=== PATIENT | male | born 1935 | race Caucasian/White ===

== ENCOUNTER 2017-08-29 08:14 | Inpatient (IN) ==
[2017-08-29] MEDS ORDERED: Acetaminophen IV 1,000 MG/100 ML INFUS..BTL IVPB ONE (08:57)
[2017-08-29] MEDS ORDERED: Famotidine 20 MG/2 ML VIAL IVP ONE (08:57)
[2017-08-29] MEDS ORDERED: Pregabalin 75 MG CAPSULE PO ONE (08:57)
[2017-08-29] MEDS ORDERED: Ringers Solution, Lactated 1,000 ML IVC SCH (09:00)
--- NOTE | 2017-08-29 09:02 | Anesthesia Evaluation PreOp ---
Date of Encounter: 08/29/17 Time of Encounter: 09:00 - Past History Planned Operation: Posterior Lumbar Fusion L3-5 Cardiac History: Denies any Significant Hx Pulmonary History: Denies Any Significant HX INSPECTOR CASING History: Denies Any Significant HX Other Medical History: Diabetes Type II, Thyroid, GERD Anesthesia History: No Prior Anesthetic Complications Alcohol Use: rarely Drug use: none Medications and Allergies Aspirin [Lo-Dose Aspirin EC] 81 mg PO DAILY 08/14/16 [History] Gabapentin [Neurontin] 600 mg PO BID 08/14/16 [History] Levothyroxine [Synthroid] 75 mcg PO 30 08/14/16 [History] Metformin HCl [Glucophage] 1,000 mg PO BID 08/14/16 [History] Naproxen [Naprosyn] 500 mg PO BID 08/14/16 [History] Nateglinide [Starlix] 60 mg PO BID 08/14/16 [History] Omeprazole [Omeprazole] 20 mg PO DAILY 08/14/16 [History] Oxycodone HCl/Acetaminophen [Percocet 5-325 mg Tablet] 1 each PO Q4-6H PRN #10 tablet 08/14/16 [Rx] Sertraline [Zoloft] 100 mg PO DAILY 08/14/16 [History] Tamsulosin HCl [Flomax] 0.4 mg PO DAILY 08/14/16 [History] glipiZIDE [Glipizide ER] 10 mg PO DAILY 08/14/16 [History] 3 Allergy/AdvReac Type Severity Reaction Status Date / Time No Known Allergies Allergy Verified 08/17/17 15:33 - Meds/Allergy Pre-op Review Medications Reviewed: Yes Allergies Reviewed: Yes Beta Blockers on Current Med List: No Anesthesia Results - Labs Laboratory Tests 08/17/17 08/17/17 15:43 15:43 Hgb 13.7 Hct 40.7 Plt Count 184 Sodium 136 Potassium 4.2 BUN 12 Creatinine 0.90 - Imaging EKG: report reviewed (SR) Additional studies: 7 Stress Test Negative, EF 60% Anesthesia Exam O2 Sat Height 1.73 m Height 1.73 m Weight 88.451 kg Weight 88.451 kg O2 Sat by Pulse Oximetry 96 Vital Signs Temp Pulse Resp BP Pulse Ox 98.5 F 87 18 127/79 96 08/29/17 08:51 08/29/17 08:51 08/29/17 08:51 08/29/17 08:51 08/29/17 08:51 Height: 5'8 Weight: 195 lbs NPO (# of Hours): MN Pain Scale: 0 - HEENT Pupil (Motor): Pupils equal, EOMI Mallampati: III Oral Opening: Less than or equal to 3 - INSPECTOR CASING LOC: Oriented INSPECTOR CASING Motor: Normal RUE, Normal LUE, Normal RLE, Normal LLE, Normal Face INSPECTOR CASING Sensory: Normal: RUE, LUE, RLE, LLE, Face - Cardiac Rhythm: Regular Murmur: None JVD: No Carotid Bruit: No - Pulmonary Breath Sounds: bilateral Clear Respiratory Effort: Symmetrical Anesthesia Assess/Plan ASA Score: 2 (DM GERD) Modified [place] Scale for Level of Consciousness: Cooperative, oriented, and tranquil Anesthetic Plan: General Monitoring Plan: Standard Monitors Recovery Plan: PACU (Discussed GA, agrees to proceed)
[2017-08-29] MEDS ORDERED: *HR* Propofol 200 MG/20 ML VIAL IVP ONE (09:29)
[2017-08-29] MEDS ORDERED: *HR* Succinylcholine 200 MG/10 ML VIAL IVP ONE (09:29)
[2017-08-29] MEDS ORDERED: *HR* FentaNYL (PF) 100 MCG/2 ML VIAL ONE (09:29)
[2017-08-29] MEDS ORDERED: Ondansetron 4 MG/2 ML VIAL ONE (09:29)
[2017-08-29] MEDS ORDERED: Lidocaine -MPF 2% 2 ML VIAL ONE (09:29)
[2017-08-29] MEDS ORDERED: Bacitracin 50,000 UNIT, Polymyxin B Sulfate 500,000 UNIT, Sodium Chloride IRRigation 1,... IR ONE (09:50)
--- NOTE | 2017-08-29 10:10 | History & Physical Report ---
Date of Encounter: 08/29/17 Time of Encounter: 10:10 24 Hour HP Update - Instructions Instructions: If the History and Physical is less than 30 days old and was completed prior to A.M. admission and or procedure and has NOT been updated on calendar day of procedure please complete this update prior to performing procedure. - Update Patient reports changes in Medical Condition: No Changes in examination, assessment, or condition: No Changes in Medication: No Preop tests/diagnostics Reviewed: Yes Pre-Op MRSA Screen: Negative Surgery Remains Indicated: Yes Consent for Planned Operative Procedure(s) Verified: Yes - Pre-Operative Checklist Preoperative Checklist Indicated: No Prophylactic Antibiotic Ordered: Yes Home Medications Include Beta Juan: No Beta Juan Taken Today (Day of Surgery): No Beta Juan Taken Yesterday (Day Prior to Surgery): No Is VTE Prophylaxis Indicated?: Yes
[2017-08-29] MEDS ORDERED: *HR* Morphine 10 MG/ML VIAL ONE (10:22)
[2017-08-29] MEDS ORDERED: Dexamethasone 4 MG/ML VIAL ONE (10:53)
[2017-08-29] MEDS ORDERED: *HR* PHENYLEPHRINE 1,000 MCG/10 ML SYRINGE IVP ONE ×2 (10:57→11:51)
[2017-08-29] MEDS ORDERED: EPHEDrine 50 MG/ML VIAL ONE (11:34)
[2017-08-29] MEDS ORDERED: *HR* Rocuronium Bromide 50 MG/5 ML VIAL ONE (11:41)
[2017-08-29] MEDS ORDERED: *HR* Promethazine 25 MG/ML VIAL IVP PRN (12:16)
[2017-08-29] MEDS ORDERED: *HR* Labetalol 20 MG/4 ML SYRINGE IVP PRN (12:16)
[2017-08-29] MEDS ORDERED: Neostigmine Methylsulfate 3 MG/3 ML SYRINGE ONE (13:11)
[2017-08-29] MEDS ORDERED: Esmolol 100 MG/10 ML VIAL IVP ONE (13:38)
--- NOTE | 2017-08-29 13:58 | Orthopedic Operative Note ---
Date of procedure: 08/29/17 Pre-op diagnosis: Spondylolisthesis, lumbar stenosis, lumbar radiculopathy Post-op diagnosis: same Operation/Findings: Posterior lumbar interbody fusion L3-L5: The patient successfully underwent general endotracheal anesthesia. The patient was given antibiotics prior to the start of the procedure. Compression boots and stockings were used for deep vein thrombosis prophylaxis. A Bass catheter was placed. Leads for neuro monitoring were placed on the upper and lower extremities. This included the cranium. The neuro monitoring personnel confirmed there were satisfactory readings prior to the start of the procedure. The patient was turned prone on the Efren table. The back was prepped and draped in the usual sterile fashion. An incision was was marked and centered over the involved L3-L5 levels in the mid line. The incision was deepened through the lumbar fascia. Bovie cautery and Roberts elevators were used to reflect the paraspinal musculature at the lateral extent of the transverse processes of the involved L3 , L4, and L5 levels. Melida clamps were placed over the L4 and L5 spinous processes. An intraoperative lateral fluoroscopy graft was obtained. A conversation was held between the surgeon and radiologist and both confirmed we had the correct operative levels. We then placed pedicle screws in standard fashion with the aid of fluoroscopy and anatomic landmarks. Briefly a starter awl was used. A gearshift was subsequently used to enter the highway patrol pilot hole via a transpedicular route into the vertebral body. The highway patrol pilot hole was tapped with an undersized instrument, and subsequently six 6.5 x 40 mm pedicle screws were placed bilaterally at the indicated L3, L4, and L5 levels. The screws were tested with the aid of the neurologic monitoring staff via pedicle screw stimulation. All reading suggested there was no significant cortical wall breech. The screws were also evaluated fluoro- graphically and appeared to be in satisfactory position. We then turned our attention to the decompression portion of the procedure. We removed the supraspinous and interspinous ligaments and subsequently the insertion of the ligamentum flavum on the undersurface of the L4 proximal lamina was dislodged with a curette. We then removed the ligamentum flavum as well as undercut the L4-L5 facets at this L4- L5 level to decompress the lateral recesses. We also performed a L4 laminectomy. After the decompression which was over and above that which was required to place the interbody graft, the foramen and traversing roots at this level were found to be free and patent. We moved proximally to the L3-4 level and again performed a decompression which included removal of the ligamentum flavum, undercutting the L3-4 facets, and performing an L3 laminectomy. We also took part of the medial facets at L3-4 and L4-5 in order to aid in the decompression. We then protected the neural elements including the thecal sac and traversing nerve root on the right at L3-4 with a dural retractor. We made an annulotomy into the L3-L4 disc space and then removed entire disc material using Pituitary instruments. We trialed various size grafts after the endplates were prepared for graft insertion. A 10 x 26 enter body graft fit well within the L3-L4 disc space. We obtained some bone from the right posterior superior iliac spine through us a separate incision and combined with this with the bone which we had saved from the laminectomy of L3 and L4 portion of the procedure. This autograft bone was first placed in the anterior portion of the L3-L4 disc space and additional bone was placed within the interbody graft spacer. We then placed the interbody graft spacer obliquely across the L3 -L4 disc space towards the midline while protecting the neural elements with a root retractor. When the graft was found to be in satisfactory position the lens inserter was removed. We then copiously irrigated the wound. We then decorticated the L3, L4, and L5 transverse processes as well as the L3-4 and L4- 5 facet joints of the involved L3, L4, and L5 levels to aid in the posterolateral fusion. We placed autograft bone in the lateral gutters over these regions. We then placed rods within the screw heads of the involved L3, L4, and L5 levels and first locked the distal screws and then subsequently locked the proximal screws so as to improve and reduce the spondylolisthesis previously seen. We then closed the wound in layers with 1 Vicryl for the fascia, 2-0 Vicryl. Subcutaneous tissue, and Dermabond was used for skin closure. Sterile dressings were placed over the wound. The patient was turned supine on a hospital bed and extubated. All sponge instruments and needle counts were correct at the end of the procedure. The patient tolerated the procedure well without complications. Anesthesia: GETA Surgeon: Candelario Alvarado Jr Was there an assistant sales manager present: No Estimated blood loss (cc): 150 Specimen: None Condition: stable Disposition: PACU
[2017-08-29] MEDS: *HR* Morphine 2 MG/ML SYRINGE IVP PRN ×2 (14:21→14:49)
--- NOTE | 2017-08-29 15:23 | Anesthesia Evaluation Post Op ---
Date of Encounter: 08/29/17 Time of Encounter: 15:30 - Vital Signs Vital Signs: Vital Signs/O2 Sat/Glucose, Most Current Temp Pulse Resp BP Pulse Ox 08/29/17 15:18 97.2 F L 90 20 134/86 98 08/29/17 15:08 97.2 F L 90 20 138/83 98 08/29/17 14:58 90 20 144/82 98 08/29/17 14:48 90 20 139/85 96 08/29/17 14:38 97.2 F L 94 20 145/88 98 08/29/17 14:28 94 20 137/90 97 08/29/17 14:18 92 20 136/90 100 08/29/17 14:08 97.4 F L 90 20 136/74 100 - Lungs Lungs: Clear Ascult./Percussion - Airway Airway: Non-obstructed - Cardiovascular Regular Rate - Mental Status Mental Status: Alert & Oriented, Answers Appropriately - Pain Pain Scale: 2 - Nausea Vomiting Nausea Vomiting: Not Present - Hydration Hydration: NPO - Discharge PostOp Status: Transfer Patient to floor
[2017-08-29] MEDS ORDERED: Naloxone 0.4 MG/ML INJ IVP PRN (15:35)
[2017-08-29] MEDS: *HR* OxyCODONE Immed Rel 5 MG TABLET PO PRN (16:34)
[2017-08-29] MEDS ORDERED: D5% in Water 1,000 ML IVC PRN ×2 (16:38→17:02)
[2017-08-29] MEDS ORDERED: Dextrose Gel 15 GM/37.5 ML TUBE PO PRN ×4 (16:38→17:02)
[2017-08-29] MEDS ORDERED: *HR* Dextrose 50 % in Water (Syg) 50 ML SYRINGE IVP PRN ×2 (16:38→17:02)
[2017-08-29] MEDS: *HR* Metformin 500 MG TABLET PO SCH (18:04)
[2017-08-29] MEDS: CeFAZolin Pre 2,000 MG/100 ML 2,000 MG/100 ML BAG IVPB SCH (18:04)
[2017-08-29] MEDS: Insulin LISPRO 300 UNITS/3 ML VIAL SQ SCH ×2 (18:05→20:24)
[2017-08-29] MEDS: *HR* Nateglinide 120 MG TABLET PO SCH (19:49)
[2017-08-29] MEDS: Ringers Solution, Lactated 1,000 ML IVC SCH (20:28)
[2017-08-29] MEDS: *HR* HYDROcodone/Acet 5/325 mg TABLET PO PRN (20:30)
[2017-08-30] MEDS: *HR* OxyCODONE Immed Rel 5 MG TABLET PO PRN ×4 (00:25→21:01)
[2017-08-30] MEDS: CeFAZolin Pre 2,000 MG/100 ML 2,000 MG/100 ML BAG IVPB SCH (00:26)
[2017-08-30] MEDS: Ondansetron 4 MG/2 ML VIAL IVP PRN ×2 (00:30→05:18)
[2017-08-30 02:19] LABS: BUN/Creatinine Ratio 12 (6-26); Blood Urea Nitrogen 12 mg/dL (8-23); Calcium 9.1 mg/dL (8.6-10.3); Carbon Dioxide 26 mEq/L (23-29); Chloride 104 mEq/L (98-107); Glucose 230 mg/dL (70-105); Osmolality,Calculated 297 (280-300); Sodium 140 mEq/L (136-145); eGFR For African Americans > 60 (> 60); eGFR For Non-African Americans > 60 (> 60)
[2017-08-30 02:27] LABS: Basophils % 0.1 %; Hemoglobin 12.9 g/dL (12.9-16.9); Immature Granulocytes % 0.4 % (0-4); Lymphocytes # 0.7 K/mcL (0.6-4.6); Mean Corpuscular HGB Conc 33.1 g/dL (31.6-35.5); Mean Corpuscular Hemoglobin 30.2 pg (28.0-33.3); Mean Corpuscular Volume 91.3 fL (83.0-100.0); Mean Platelet Volume 10.3 fL (9.4-12.4); Monocytes # 0.7 K/mcL (0.0-1.3); Neutrophils # 10.8 K/mcL (1.6-8.9); Platelet Count 211 K/mcL (140-400); Red Blood Count 4.27 M/mcL (4.19-5.50); Red Cell Distribution Width 13.9 % (11.5-14.5); Segmented Neutrophils % 87.5 %
[2017-08-30] MEDS: Ringers Solution, Lactated 1,000 ML IVC SCH (05:19)
[2017-08-30] MEDS: Insulin LISPRO 300 UNITS/3 ML VIAL SQ SCH ×4 (07:43→21:00)
[2017-08-30] MEDS: *HR* Promethazine 25 MG/ML VIAL IVP PRN (07:44)
[2017-08-30] MEDS: *HR* HYDROcodone/Acet 5/325 mg TABLET PO PRN (07:44)
[2017-08-30] MEDS: *HR* Nateglinide 120 MG TABLET PO SCH ×2 (08:01→16:31)
[2017-08-30] MEDS: Aspirin Enteric Coated 81 MG Tablet PO SCH (08:01)
[2017-08-30] MEDS: *HR* Metformin 500 MG TABLET PO SCH ×2 (08:01→16:31)
[2017-08-30] MEDS: *HR* GlipiZIDE XL (24 HR) 10 MG TABLET PO SCH (08:01)
--- NOTE | 2017-08-30 08:29 | Orthopedics Progress Note ---
Date of Encounter: 08/30/17 Time of Encounter: 08:27 - Assessment and Plan (1) Status post lumbar spinal fusion Current Visit: Yes Status: Acute (2) Lumbar stenosis Current Visit: Yes Status: Chronic Qualifiers: Neurogenic claudication status: unspecified Qualified Code(s): M48.061 - Spinal stenosis, lumbar region without neurogenic claudication (3) Lumbar radiculopathy Current Visit: Yes Status: Chronic (4) Spondylolisthesis Current Visit: Yes Status: Chronic Qualifiers: Spinal region: lumbar Qualified Code(s): M43.16 - Spondylolisthesis, lumbar region Subjective Principal diagnosis: Spondylolisthesis, lumbar stenosis, lumbar radiculopathy Interval history: POD#1 Posterior lumbar interbody fusion L3-L5 on 08/29/[address] Alvarado for Spondylolisthesis, lumbar stenosis, lumbar radiculopathy The patient is without complaints. Afebrile vital signs are stable. Incision is clean and intact, dressing saturated with serosanguinous drainage. Palpation around incision reveals no induration or drainage. Neurovascularly intact with regard to bilateral lower extremities. Fires all upper and lower extremity motor groups. Assessment: Stable postoperative. Plan: Reviewed postoperative restrictions and precautions. Patient verbalized understanding. Brace present and patient aware to apply with activity. Mobilize with therapy Continue analgesics as needed Discharge planning - awaiting therapy recommendations - likely ECF Radiographs pending Objective Vital signs: Vital Signs Temp Pulse Resp BP Pulse Ox 08/30/17 08:11 98 08/30/17 06:41 99.2 F 104 20 167/90 98 08/30/17 03:16 99.6 F 100 18 149/88 98 08/29/17 22:38 98.2 F 98 18 125/78 97 08/29/17 19:14 98.0 F 101 16 132/75 99 08/29/17 18:02 98.2 F 102 98 129/79 98 08/29/17 16:40 98.6 F 66 16 100/69 92 08/29/17 16:10 97.8 F 98 15 133/83 95 08/29/17 15:55 99 08/29/17 15:40 98.1 F 91 16 137/86 99 08/29/17 15:18 97.2 F L 90 20 134/86 98 08/29/17 15:08 97.2 F L 90 20 138/83 98 08/29/17 14:58 90 20 144/82 98 08/29/17 14:48 90 20 139/85 96 08/29/17 14:38 97.2 F L 94 20 145/88 98 08/29/17 14:28 94 20 137/90 97 08/29/17 14:18 92 20 136/90 100 08/29/17 14:08 97.4 F L 90 20 136/74 100 08/29/17 08:58 98.5 F 87 18 127/79 96 08/29/17 08:51 98.5 F 87 18 127/79 96 Intake and Output 08/29/17 08/30/17 08/30/17 23:59 07:59 15:59 Intake Total 500 / 500 1195 / 1195 Output Total 2350 / 2350 650 / 650 200 / 200 Balance -1850 / -1850 545 / 545 -200 / -200 Intake: IV Fluids 200 / 200 845 / 845 Lactated Ringers 1,000 ML @ 100 845 / 845 mls/hr IVC .Q10H [facility] Rx#: [id number] Ofirmev 1,000 mg/100 ml 1,000 100 / 100 mg In 100 ml @ 400 mls/hr IVPB ONCE ONE Rx#:[id number] Ancef Premix 2,000 MG/100 ML 2, 100 / 100 000 mg In 100 ml @ 200 mls/hr IVPB Q8HR [facility] Rx#:[id number] Oral 300 / 300 350 / 350 Output: Emesis 200 / 200 Catheter 2350 / 2350 650 / 650 Other: Blood Glucose* 240 256 - Labs CBC & BMP: 08/30/17 01:23 08/30/17 01:23 Labs: Abnormal lab results WBC 12.3 K/mcL (4.3-11.1) H 08/30/17 01:23 Neutrophils # 10.8 K/mcL (1.6-8.9) H 08/30/17 01:23 Glucose 230 mg/dL (70-105) H 08/30/17 01:23 POC Glucose 240 mg/dL (70-99) H 08/29/17 19:42 - VTE Documentation of Mechanical Device: Graduated compression elastic hosiery Consult Discharge Plan - Plan Referrals: Trini Roy MD [Primary Care Provider] -
[2017-08-30] MEDS ORDERED: Simethicone 80 MG TAB.CHEW PO PRN (09:18)
[2017-08-31] MEDS: Acetaminophen 325 MG TABLET PO PRN ×2 (05:27→23:48)
[2017-08-31] MEDS: *HR* Metformin 500 MG TABLET PO SCH ×2 (09:26→17:27)
[2017-08-31] MEDS: *HR* OxyCODONE Immed Rel 5 MG TABLET PO PRN ×2 (09:27→17:27)
[2017-08-31] MEDS: *HR* Nateglinide 120 MG TABLET PO SCH ×2 (09:27→17:27)
[2017-08-31] MEDS: *HR* GlipiZIDE XL (24 HR) 10 MG TABLET PO SCH (09:27)
[2017-08-31] MEDS: Aspirin Enteric Coated 81 MG Tablet PO SCH (09:27)
[2017-08-31] MEDS: Insulin LISPRO 300 UNITS/3 ML VIAL SQ SCH ×4 (09:34→21:08)
--- NOTE | 2017-08-31 17:49 | Orthopedics Progress Note ---
Date of Encounter: 08/31/17 Time of Encounter: 07:50 - Assessment and Plan (1) Status post lumbar spinal fusion Current Visit: Yes Status: Acute (2) Lumbar stenosis Current Visit: Yes Status: Chronic Qualifiers: Neurogenic claudication status: unspecified Qualified Code(s): M48.061 - Spinal stenosis, lumbar region without neurogenic claudication (3) Lumbar radiculopathy Current Visit: Yes Status: Chronic (4) Spondylolisthesis Current Visit: Yes Status: Chronic Qualifiers: Spinal region: lumbar Qualified Code(s): M43.16 - Spondylolisthesis, lumbar region Subjective Principal diagnosis: Spondylolisthesis, lumbar stenosis, lumbar radiculopathy Interval history: POD#1 Posterior lumbar interbody fusion L3-L5 on 08/29/[address] Alvarado for Spondylolisthesis, lumbar stenosis, lumbar radiculopathy The patient is without complaints. Afebrile vital signs are stable. Incision is clean and intact, dressing saturated with serosanguinous drainage. Palpation around incision reveals no induration or drainage. Neurovascularly intact with regard to bilateral lower extremities. Fires all upper and lower extremity motor groups. Assessment: Stable postoperative. Plan: Reviewed postoperative restrictions and precautions. Patient verbalized understanding. Brace present and patient aware to apply with activity. Mobilize with therapy Continue analgesics as needed Discharge planning - ECF - D/c to [place] on 09/01 Radiographs pending Objective Vital signs: Vital Signs Temp Pulse Resp BP Pulse Ox 08/31/17 16:09 98.9 F 110 20 148/75 97 08/31/17 11:49 99.0 F 100 18 107/63 95 08/31/17 08:13 99.8 F H 98 18 110/68 95 08/31/17 04:36 98.9 F 86 16 145/72 94 08/31/17 00:29 99.3 F 120 18 100/67 93 08/30/17 19:21 99.9 F H 110 18 104/67 96 Intake and Output 08/31/17 08/31/17 08/31/17 07:59 15:59 23:59 Intake Total 240 / 240 Output Total 100 / 100 200 / 200 50 / 50 Balance -100 / -100 40 / 40 -50 / -50 Intake: Oral 240 / 240 Output: Urine 100 / 100 100 / 100 50 / 50 Catheter 100 / 100 Other: Meal Lunch Percent of Meal Consumed 80% Stool Size Smear Stool Color Brown # Urine Diapers 1 # Bowel Movements 1 Blood Glucose* 181 243 - Labs CBC & BMP: 08/30/17 01:23 08/30/17 01:23 Labs: Abnormal lab results WBC 12.3 K/mcL (4.3-11.1) H 08/30/17 01:23 Neutrophils # 10.8 K/mcL (1.6-8.9) H 08/30/17 01:23 Glucose 230 mg/dL (70-105) H 08/30/17 01:23 POC Glucose 215 mg/dL (70-99) H 08/31/17 07:47 - VTE Documentation of Mechanical Device: Intermittent pneumatic compression device Consult Discharge Plan - Plan Referrals: Trini Roy MD [Primary Care Provider] -
[2017-08-31] MEDS: *HR* HYDROcodone/Acet 5/325 mg TABLET PO PRN (19:06)
[2017-08-31 22:03] LABS: Basophils % 0.1 %; Hematocrit 34.1 % (37.5-50.1); Hemoglobin 11.8 g/dL (12.9-16.9); Immature Granulocytes % 0.7 % (0-4); Lymphocytes # 1.2 K/mcL (0.6-4.6); Lymphocytes % 7.9 %; Mean Corpuscular HGB Conc 34.6 g/dL (31.6-35.5); Mean Corpuscular Hemoglobin 31.6 pg (28.0-33.3); Mean Corpuscular Volume 91.4 fL (83.0-100.0); Mean Platelet Volume 10.1 fL (9.4-12.4); Monocytes # 1.1 K/mcL (0.0-1.3); Monocytes % 7.9 %; Neutrophils # 12.1 K/mcL (1.6-8.9); Platelet Count 192 K/mcL (140-400); Red Blood Count 3.73 M/mcL (4.19-5.50); Red Cell Distribution Width 13.9 % (11.5-14.5); Segmented Neutrophils % 83.4 %
[2017-08-31 22:24] LABS: BUN/Creatinine Ratio 20 (6-26); Blood Urea Nitrogen 22 mg/dL (8-23); Calcium 8.8 mg/dL (8.6-10.3); Carbon Dioxide 20 mEq/L (23-29); Chloride 100 mEq/L (98-107); Glucose 197 mg/dL (70-105); Osmolality,Calculated 283 (280-300); Potassium 3.7 mEq/L (3.5-5.1); Sodium 132 mEq/L (136-145); eGFR For African Americans > 60 (> 60); eGFR For Non-African Americans > 60 (> 60)
[2017-08-31 23:12] LABS: Bilirubin,Urine Negative (Negative); Blood,Urine Negative (Negative); Clarity,Urine Clear (Clear); Color,Urine Dark Yellow (Yellow); Glucose,Urine (UA) >=1000 mg/dL (Normal); Ketones,Urine 15 mg/dL (Negative); Leukocyte Esterase,Urine Negative (Negative); Nitrite,Urine Negative (Negative); PH,Urine 5.5 pH Units (5.0-8.0); Protein,Urine 30 mg/dL (Neg-Trace); Specific Gravity,Urine 1.029 (1.010-1.025); Urobilinogen,Urine Normal (Normal)
[2017-08-31 23:16] LABS: Bacteria,Urine None Seen per hpf (None-Few); Hyaline Casts,Urine None Seen per lpf (None-Few); Squamous Epithelial Cell,Urine Moderate per lpf (None-Few); WBC,Urine 0-3 per hpf (0-3)
[2017-09-01] MEDS: diazePAM 5 MG TABLET PO PRN ×2 (00:10→16:25)
[2017-09-01] MEDS: *HR* OxyCODONE Immed Rel 5 MG TABLET PO PRN ×3 (01:15→22:11)
[2017-09-01] MEDS: Ringers Solution, Lactated 1,000 ML IVC SCH (05:38)
[2017-09-01] MEDS: Insulin LISPRO 300 UNITS/3 ML VIAL SQ SCH ×4 (07:40→20:26)
[2017-09-01] MEDS: Aspirin Enteric Coated 81 MG Tablet PO SCH (07:41)
[2017-09-01] MEDS: *HR* Metformin 500 MG TABLET PO SCH ×2 (07:41→16:26)
[2017-09-01] MEDS: *HR* Nateglinide 120 MG TABLET PO SCH ×2 (07:41→16:26)
[2017-09-01] MEDS: *HR* GlipiZIDE XL (24 HR) 10 MG TABLET PO SCH (07:41)
[2017-09-01] MEDS: Ondansetron 4 MG/2 ML VIAL IVP PRN (07:50)
--- NOTE | 2017-09-01 08:36 | Discharge Summary ---
Orders not resulted at time of discharge: Pending orders 08/30/17 08:06 Occult Blood, Gastric [BF] Stat 08/31/17 23:37 Culture,Blood [BC] Stat 09/01/17 08:00 XR lumbar spine 2-3V [XR] Routine Date of Encounter: 09/01/17 - Discharge Diagnosis (1) Status post lumbar spinal fusion Status: Acute (2) Lumbar stenosis Status: Chronic Qualifiers: Neurogenic claudication status: unspecified Qualified Code(s): M48.061 - Spinal stenosis, lumbar region without neurogenic claudication (3) Lumbar radiculopathy Status: Chronic (4) Spondylolisthesis Status: Chronic Qualifiers: Spinal region: lumbar Qualified Code(s): M43.16 - Spondylolisthesis, lumbar region - Hospital Course Hospital course: Mr. Cr is a 82 year old male - Time Spent with Patient Total time spent providing and/or coordinating discharge services: - Discharge Medications Prescriptions: OxyCODONE Immed Rel [Roxicodone 5 MG] 5 mg PO Q6HR PRN 7 Days #28 tablet PRN Reason: Severe Pain Home Medications: Aspirin [Lo-Dose Aspirin EC] 81 mg PO DAILY 08/14/16 [History] Levothyroxine [Synthroid] 75 mcg PO 0630 08/14/16 [History] Metformin HCl [Glucophage] 1,000 mg PO BID 08/14/16 [History] Naproxen [Naprosyn] 500 mg PO BID 08/14/16 [History] Nateglinide [Starlix] 60 mg PO BID 08/14/16 [History] Omeprazole 20 mg PO DAILY 08/14/16 [History] glipiZIDE [Glipizide ER] 10 mg PO DAILY 08/14/16 [History] Acetaminophen [Tylenol] 650 mg PO Q6HR PRN tablet 09/01/17 [Rx] OxyCODONE Immed Rel [Roxicodone 5 MG] 5 mg PO Q6HR PRN 7 Days #28 tablet [Rx] Simethicone [Gas-X] 80 mg PO TID PRN tab.chew 09/01/17 [Rx] Allergies/Adverse Reactions: 3 Allergy/AdvReac Type Severity Reaction Status Date / Time No Known Allergies Allergy Verified 08/29/17 09:54 Date of admission: 08/29/17 15:35 Primary care physician: Trini Roy Consults: 08/29/17 15:35 Consult to Occupational Therapy [CONS] Routine Comment: Evaluate, develop and implement POC Reason for Consult: Postoperative rehabilitation Does patient have active BEDREST order?: No Is patient medically & hemodynamically stable?: Yes Patient assessed for mobility or mobilized this visit?: No Consult to Physical Therapy [CONS] Routine Comment: Evaluate, develop and implement POC Reason for Consult: Postoperative rehabilitation Does patient have active BEDREST order?: No Is patient medically & hemodynamically stable?: Yes Patient assessed for mobility or mobilized this visit?: No Consult to Adoption Services Manager [CONS] Routine Reason for SW Consult: Postoperative rehabilitation Consult to Spine Navigator [CONS] [CONS] Routine 08/29/17 16:19 Consult to Nutrition [CONS] Routine Comment: Consulting Provider: NUTRITION Reason for Dietary Consult: MST Score Consult to Pastoral Services [CONS] Routine Comment: - VTE Documentation of Mechanical Device: Intermittent pneumatic compression device Labs on day of discharge: Labs from last 24 hours 09/01/17 09/01/17 08/31/17 04:47 00:45 22:40 WBC RBC Hgb Hct MCV MCH MCHC RDW Plt Count MPV Immature Gran % Seg Neutrophils % Lymphocytes % Monocytes % Eosinophils % Basophils % Neutrophils # Lymphocytes # Monocytes # Eosinophils # Basophils # Sodium Potassium Chloride Carbon Dioxide BUN Creatinine Est GFR ( Amer) Est GFR (Non-Af Amer) BUN/Creatinine Ratio Glucose POC Glucose Calculated Osmolality Lactic Acid 1.8 2.6 H Calcium Urine Color Dark Yellow Urine Clarity Clear Urine pH 5.5 Ur Specific Royal 1.029 H Urine Protein 30 H Urine Glucose (UA) >=1000 H Urine Ketones 15 H Urine Blood Negative Urine Nitrite Negative Urine Bilirubin Negative Urine Urobilinogen Normal Ur Leukocyte Esterase Negative Urine Microscopic RBC 5-15 H Urine Microscopic WBC 0-3 Ur Squamous Epith Cells Moderate H Urine Bacteria None Seen Hyaline Casts None Seen Ur Culture Indicated? NO 08/31/17 08/31/17 08/31/17 21:48 21:48 07:47 WBC 14.5 H RBC 3.73 L Hgb 11.8 L Hct 34.1 L MCV 91.4 MCH 31.6 MCHC 34.6 RDW 13.9 Plt Count 192 MPV 10.1 Immature Gran % 0.7 Seg Neutrophils % 83.4 Lymphocytes % 7.9 Monocytes % 7.9 Eosinophils % 0.0 Basophils % 0.1 Neutrophils # 12.1 H Lymphocytes # 1.2 Monocytes # 1.1 Eosinophils # 0.0 Basophils # 0.0 Sodium 132 L Potassium 3.7 Chloride 100 Carbon Dioxide 20 L BUN 22 Creatinine 1.12 Est GFR ( Amer) > 60 Est GFR (Non-Af Amer) > 60 BUN/Creatinine Ratio 20 Glucose 197 H POC Glucose 215 H Calculated Osmolality 283 Lactic Acid Calcium 8.8 Urine Color Urine Clarity Urine pH Ur Specific Royal Urine Protein Urine Glucose (UA) Urine Ketones Urine Blood Urine Nitrite Urine Bilirubin Urine Urobilinogen Ur Leukocyte Esterase Urine Microscopic RBC Urine Microscopic WBC Ur Squamous Epith Cells Urine Bacteria Hyaline Casts Ur Culture Indicated? - Impressions ITS Impressions Lumbar Spine X-Ray 08/29/17 00:00 IMPRESSION: Intraprocedural fluoroscopic spot images as above. See separate procedure report for more information. D/ / 08/29/2017 15:46:07 Ramsey Ramos MD / maya Interpreting Provider: Ramsey Ramos MD Fluoroscopy 08/29/17 11:22 IMPRESSION: Intraprocedural fluoroscopic spot images as above. See separate procedure report for more information. D/ / 08/29/2017 15:46:07 Ramsey Ramos MD / maya Interpreting Provider: Ramsey Ramos MD Chest X-Ray 08/31/17 23:36 IMPRESSION: 1. Minimal bibasilar opacities suggestive of partial atelectasis. Mild pneumonia may be considered in the differential diagnosis. D/ / 09/01/2017 05:37:16 Wagner Harrell MD / yer Interpreting Provider: Wagner Harrell MD - Discharge Instructions Follow Up With: Trini Roy MD [Primary Care Provider] -
--- NOTE | 2017-09-01 08:38 | Orthopedics Progress Note ---
Date of Encounter: 09/01/17 Time of Encounter: 08:20 - Assessment and Plan (1) Status post lumbar spinal fusion Current Visit: Yes Status: Acute (2) Lumbar stenosis Current Visit: Yes Status: Chronic Qualifiers: Qualified Code(s): M48.061 - Spinal stenosis, lumbar region without neurogenic claudication (3) Lumbar radiculopathy Current Visit: Yes Status: Chronic (4) Spondylolisthesis Current Visit: Yes Status: Chronic Qualifiers: Qualified Code(s): M43.16 - Spondylolisthesis, lumbar region Subjective Principal diagnosis: Spondylolisthesis, lumbar stenosis, lumbar radiculopathy Interval history: POD#3 Posterior lumbar interbody fusion L3-L5 on 08/29/[address] Alvarado for Spondylolisthesis, lumbar stenosis, lumbar radiculopathy The patient is without complaints. Afebrile - Patient's heart rate trending upward. Concern for developing medical complication Patient very somnolent and noted to be somewhat disoriented this morning - patient noted to be drifting off while being spoken to and pitching forward in chair. Requested patient be transferred back into bed to ensure safety. Lumbar support brace in place. Neurovascularly intact with regard to bilateral lower extremities. Fires all upper and lower extremity motor groups. Assessment: Status post lumbar fusion Sudden onset confusion Hypersomnolence Plan: Brace present and patient aware to apply with activity. Mobilize with therapy Continue analgesics as needed - will decrease frequency secondary to somnolence and confusion Discharge planning - ECF - D/c to [facility] on 09/01 - hold discharge until lab and imaging resulted secondary to concern regarding confusion Radiographs pending Later entry with update This provider was notified by nursing staff that patient continues to trend toward persistent tachycardic and questionable for worsening status. Hospitalist team consulted for further evaluation. Dr. Alvarado notified and states agreement with plan. Objective Vital signs: Vital Signs Temp Pulse Resp BP Pulse Ox 09/01/17 07:20 98.4 F 121 16 109/67 95 09/01/17 04:22 98.6 F 107 18 102/68 95 09/01/17 00:47 98.3 F 100 18 112/56 92 08/31/17 23:14 101.7 F H 121 22 123/62 93 08/31/17 21:40 93 08/31/17 20:39 98.8 F 81 18 112/54 91 08/31/17 16:09 98.9 F 110 20 148/75 97 08/31/17 11:49 99.0 F 100 18 107/63 95 Intake and Output 08/31/17 09/01/17 09/01/17 23:59 07:59 15:59 Intake Total 350 / 350 100 / 100 Output Total 50 / 50 600 / 600 Balance 300 / 300 -500 / -500 Intake: Oral 350 / 350 100 / 100 Output: Urine 50 / 50 600 / 600 Other: Stool Size Smear Stool Color Brown # Voids 1 2 # Bowel Movements 1 Blood Glucose* 185 174 - Labs CBC & BMP: 09/01/17 14:26 09/01/17 14:26 Labs: Abnormal lab results WBC 14.5 K/mcL (4.3-11.1) H 08/31/17 21:48 RBC 3.73 M/mcL (4.19-5.50) L 08/31/17 21:48 Hgb 11.8 g/dL (12.9-16.9) L 08/31/17 21:48 Hct 34.1 % (37.5-50.1) L 08/31/17 21:48 Neutrophils # 12.1 K/mcL (1.6-8.9) H 08/31/17 21:48 Sodium 132 mEq/L (136-145) L 08/31/17 21:48 Carbon Dioxide 20 mEq/L (23-29) L 08/31/17 21:48 Glucose 197 mg/dL (70-105) H 08/31/17 21:48 POC Glucose 215 mg/dL (70-99) H 08/31/17 07:47 Ur Specific [place] 1.029 (1.010-1.025) H 08/31/17 22:40 Urine Protein 30 mg/dL (Neg-Trace) H 08/31/17 22:40 Urine Glucose (UA) >=1000 mg/dL (Normal) H 08/31/17 22:40 Urine Ketones 15 mg/dL (Negative) H 08/31/17 22:40 Urine Microscopic RBC 5-15 per hpf (0-3) H 08/31/17 22:40 Ur Squamous Epith Cells Moderate per lpf (None-Few) H 08/31/17 22:40 - VTE Documentation of Mechanical Device: Intermittent pneumatic compression device Consult Discharge Plan - Plan Referrals: Trini Roy MD [Primary Care Provider] - Prescriptions: OxyCODONE Immed Rel [Roxicodone 5 MG] 5 mg PO Q6HR PRN 7 Days #28 tablet PRN Reason: Severe Pain
[2017-09-01] MEDS: *HR* HYDROcodone/Acet 5/325 mg TABLET PO PRN (12:03)
[2017-09-01 14:42] LABS: Basophils % 0.2 %; Eosinophils # 0.1 K/mcL (0.0-0.6); Eosinophils % 0.6 %; Hemoglobin 11.2 g/dL (12.9-16.9); Immature Granulocytes % 0.6 % (0-4); Lymphocytes # 1.4 K/mcL (0.6-4.6); Lymphocytes % 11.2 %; Mean Corpuscular HGB Conc 32.9 g/dL (31.6-35.5); Mean Corpuscular Hemoglobin 30.2 pg (28.0-33.3); Mean Corpuscular Volume 91.6 fL (83.0-100.0); Mean Platelet Volume 10.3 fL (9.4-12.4); Monocytes # 0.8 K/mcL (0.0-1.3); Monocytes % 6.7 %; Neutrophils # 9.8 K/mcL (1.6-8.9); Platelet Count 183 K/mcL (140-400); Red Blood Count 3.71 M/mcL (4.19-5.50); Red Cell Distribution Width 14.1 % (11.5-14.5); Segmented Neutrophils % 80.7 %
[2017-09-01] MEDS ORDERED: *HR* LORazepam 2 MG/ML VIAL IVP ONE (14:56)
[2017-09-01 15:33] LABS: Alanine Aminotransferase 19 Units/L (7-52); Albumin 3.6 g/dL (3.5-5.7); Albumin/Globulin Ratio 1.2 (1.1-2.2); Alkaline Phosphatase 63 Units/L (34-104); Aspartate Amino Transferase 17 Units/L (13-39); BUN/Creatinine Ratio 25 (6-26); Bilirubin,Total 0.8 mg/dL (0.3-1.0); Blood Urea Nitrogen 29 mg/dL (8-23); Calcium 8.9 mg/dL (8.6-10.3); Carbon Dioxide 21 mEq/L (23-29); Chloride 100 mEq/L (98-107); Globulin 2.9 g/dL (2.4-3.5); Glucose 234 mg/dL (70-105); Osmolality,Calculated 289 (280-300); Potassium 3.1 mEq/L (3.5-5.1); Sodium 133 mEq/L (136-145); Total Protein 6.5 g/dL (6.4-8.9); eGFR For African Americans > 60 (> 60); eGFR For Non-African Americans > 60 (> 60)
--- NOTE | 2017-09-01 15:42 | Internal Medicine Consult Note ---
<MonalisaterencedarNoe hart - Last Filed: 09/01/17 15:32> Date of Encounter: 09/01/17 Time of Encounter: 14:00 - Assessment and plan (1) Sepsis Current Visit: Yes Status: Acute Assessment and plan: Acute sepsis criteria w/current leukocytosis of 14.5 yesterday and 12.1 today, HR of 101, and lactic acid of 3.1. 0.9 NS 1L fluid bolus ordered to be followed by 0.9 IV fluids @ 100 mL/HR ordered. Blood cultures x 2. UA w/reflex micro and culture. Timed lactic acids. Positive MRSA nasal swab pre-op. IVPB vancomycin w/ Pharmacy dosing and Zosyn 3.375 gm Q8HR for infection coverage. Will adjust abx coverage based on culture results. Continuous cardiac telemetry. Supplemental O2 w/titration and SpO2 monitoring. Pt. discussed w/Dr. Ha who agrees w/ plan of care. Pt. is high risk for further morbidity and infection based on current sepsis criteria, lactic acidosis, concern for PE/DVT, hx, and risk factors. Inpatient. Qualifiers: Sepsis type: sepsis due to unspecified organism Qualified Code(s): A41.9 - Sepsis, unspecified organism (2) Leukocytosis Current Visit: Yes Status: Acute Assessment and plan: Acute leukocytosis w/WBC of 12.3 on 08/30, 14.5 on 08/31, and 12.1 today. Pt. is currently contact precautions d/t positive MRSA results from pre-op nasal swab. IVPB vancomycin w/Pharmacy dosing and Zosyn 3.375 gm Q8HR for infection coverage. Blood cultures x2 ordered. UA w/reflex micro and culture ordered. Will adjust abx coverage based on culture results. Monitor pt. and f/u labs. Qualifiers: Leukocytosis type: unspecified Qualified Code(s): D72.829 - Elevated white blood cell count, unspecified (3) Atrial fibrillation with RVR Current Visit: Yes Status: Acute Assessment and plan: Acute Afib w/RVR on EKG today. Pt. currently hypokalemic and receiving PO potassium. Pt. is also currently sepsis criteria. Sepsis protocol being followed w/IV 0.9 NS bolus and f/u fluids, blood cultures x2, timed lactic acids , and IVPB vancomycin and Zosyn. Continuous telemetry ordered. Pt. to be monitored and will add PO Cardizem or Cardizem drip if appropriate. (4) Hypokalemia Current Visit: Yes Status: Acute Assessment and plan: Acute hypokalemia w/potassium of 3.7 today, now 3.1 on second lab draw later in day. 40 mEq PO ordered. Potassium level ordered at 00:00. Continuous cardiac telemetry. Pts. EKG shows atrial fibrillation w/RVR. (5) Hyponatremia Current Visit: Yes Status: Acute Assessment and plan: Acute hyponatremia w/sodium of 132 today. Will DC ringers lactate and replace w/ 0.9 NS @ 100 mL/HR. Monitor f/u labs for sodium status. (6) Drop in hemoglobin Current Visit: Yes Status: Acute Assessment and plan: Acute drop in Hgb, most likely d/t post-surgical status. Hgb 12.9 on 08/30, 11.8 on 08/31, 11.2 today. Pt. denies unusual bleeding. H/H ordered for 04:00. Monitor. (7) SOB (shortness of breath) Current Visit: Yes Status: Acute Assessment and plan: Acute SOB. Pt. reports intermittent SOB and somnolence. O2 via NC ordered. Concern for possible PE post-surgery so D-dimer ordered. Awaiting results. Will order CTA of chest if elevated. (8) Status post lumbar spinal fusion Current Visit: Yes Status: Acute Assessment and plan: Pt. to be followed by Dr. Alvarado post-procedure for f/u. (9) Lumbar radiculitis Current Visit: Yes Status: Chronic (10) Lumbar radiculopathy Current Visit: Yes Status: Chronic (11) Lumbar stenosis Current Visit: Yes Status: Chronic Qualifiers: Neurogenic claudication status: unspecified Qualified Code(s): M48.061 - Spinal stenosis, lumbar region without neurogenic claudication (12) Spondylolisthesis Current Visit: Yes Status: Chronic Qualifiers: Spinal region: lumbar Qualified Code(s): M43.16 - Spondylolisthesis, lumbar region - Time Spent With Patient Total time spent is greater than 50% in coordination of care (as documented) at patient's floor/unit and/or counseling patient: Greater than 35 minutes Internal Medicine - CN: HPI - Data of Consult Patient: new to practice Requesting Physician: Candelario Alvarado Jr MD - Consult Narrative History of present illness: Mr. Cr is a 82 year old male w/PMH of GERD, diabetes, thyroid disease, and chronic low back pain presents for Hospitalist consultation d/t altered mental status, leukocytosis, and sepsis criteria post-posterior lumbar interbody fusion L3-L5 on 08/29/17. Pt. reports that he is extremely fatigued and somnolent , has pain in his left leg today, SOB, and generally has not felt well for the past two days. Pt. had fever last night of 101.7F. WBC was 14.5 at 21:48 yesterday and is 12.1 today. Pt. is currently contact precautions d/t positive MRSA nasal screen pre-operatively. States he is having abdominal bloating and gas w/nausea. Denies CP, changes in vision, unusual bleeding, cough, chest congestion, diarrhea, dizziness, lightheadedness, pre-syncope, or syncope. Past Med Surg Social Fam HX - Past Medical History Source: patient, old records reviewed Medical history: diabetes, GERD Psychiatric history: no psych history - Past Surgical History Surgical History: orthopedic, other (Status post lumbar spinal fusion) - Social History Smoking Status: Never smoker Smokeless Tobacco Status: No Alcohol use: rarely Drug use: none Current living situation: Home Activity Level: Uses cane/walker Recent Out of Country Travel Within the Last 8 Weeks: No Exposure or Possible Exposure to Illness During Travel: No - Family History Father Race: Family Member Ethnicity: Non- Living Status: Cause of : [place] Hx Family Cardiac Disorders: Yes ("Heart problems" [place]) Brother Race: Family Member Ethnicity: Non- Living Status: Still Living Hx Family Medical Disorders: No Sister Race: Family Member Ethnicity: Non- Living Status: Still Living Hx Family Musculoskeletal Disorders: Yes (Arthritis) - Constitutional Constitutional: as per HPI - EENT Eyes: as per HPI Ears: as per HPI Nose, mouth and throat: as per HPI - Breasts Breasts: as per HPI - Cardiovascular Cardiovascular ROS IM: as per HPI, dyspnea - Respiratory Respiratory: as per HPI, dyspnea - Gastrointestinal Gastrointestinal: as per HPI, belching, bloating, nausea - Genitourinary Genitourinary ROS male: as per HPI, urinary frequency - Musculoskeletal Musculoskeletal ROS IM: as per HPI, back pain - Integumentary Integumentary IM: as per HPI - Neurological Neurological ROS: as per HPI, behavioral changes, confusion - Psychiatric Psychiatric: as per HPI, confusion - Endocrine Endocrine IM: as per HPI - Hematologic/Lymphatic Hematologic/Lymphatic: as per HPI - Allergic/Immunologic Allergic/Immunologic: as per HPI Internal Medicine - CN: Meds Aspirin [Lo-Dose Aspirin EC] 81 mg PO DAILY 08/14/16 [History] Levothyroxine [Synthroid] 75 mcg PO 0630 08/14/16 [History] Metformin HCl [Glucophage] 1,000 mg PO BID 08/14/16 [History] Naproxen [Naprosyn] 500 mg PO BID 08/14/16 [History] Nateglinide [Starlix] 60 mg PO BID 08/14/16 [History] Omeprazole 20 mg PO DAILY 08/14/16 [History] glipiZIDE [Glipizide ER] 10 mg PO DAILY 08/14/16 [History] Acetaminophen [Tylenol] 650 mg PO Q6HR PRN tablet 09/01/17 [Rx] OxyCODONE Immed Rel [Roxicodone 5 MG] 5 mg PO Q6HR PRN 7 Days #28 tablet [Rx] Simethicone [Gas-X] 80 mg PO TID PRN tab.chew 09/01/17 [Rx] 3 Allergy/AdvReac Type Severity Reaction Status Date / Time No Known Allergies Allergy Verified 08/29/17 09:54 Internal Medicine - CN: Exam - Constitutional Vitals: Temp Pulse Resp BP Pulse Ox 97.7 F 101 18 127/70 95 09/01/17 11:39 09/01/17 11:39 09/01/17 11:39 09/01/17 11:39 09/01/17 11:39 General appearance IM: Present: cooperative, A&O X 3, pleasant, no acute distress (Intermittent somnolence during assessment), obese, answers questions appropriately - Head Head exam: Present: atraumatic, normocephalic - Eye Eye exam: Present: normal appearance, PERRL, conjuntiva pink, sclera anicteric Pupils: Present: PERRL - ENT ENT exam: Present: normal exam - Neck Neck exam general surgery: Present: supple, trachea midline - Respiratory Respiratory exam: Present: CTAB - Cardiovascular Cardiovascular exam IM: Present: irregular rhythm (Atrial fibrillation w/RVR) - GI/Abdominal GI/Abdominal exam IM: Present: diminished bowel sounds, soft, tenderness - Rectal Rectal exam: Present: deferred - Additional comments: exam deferred. - Extremities Exam Extremities exam IM: Present: warm, radial pulses palpable and symmetrical - Back Exam Back exam: Present: normal inspection - Neurological Exam Neurological exam: Present: alert, oriented X3, no focal deficits, strengths equal and symetr throughout - Psychiatric Psychiatric exam: Present: normal affect, normal mood - Skin Skin exam IM: Present: dry, intact Internal Medicine - CN: Reslt - Labs CBC & Chem 7: 09/01/17 14:26 08/31/17 21:48 Labs: Short CBC 08/31/17 09/01/17 Range/Units 21:48 14:26 WBC 14.5 H 12.1 H (4.3-11.1) K/mcL Hgb 11.8 L 11.2 L (12.9-16.9) g/dL Hct 34.1 L 34.0 L (37.5-50.1) % Plt Count 192 183 (140-400) K/mcL Neutrophils # 12.1 H 9.8 H (1.6-8.9) K/mcL BMP 08/31/17 21:48 Sodium 132 L Potassium 3.7 Chloride 100 Carbon Dioxide 20 L BUN 22 Creatinine 1.12 Glucose 197 H Calcium 8.8 Urine 08/31/17 Range/Units 22:40 Urine Color Dark Yellow (Yellow) Urine Clarity Clear (Clear) Urine pH 5.5 (5.0-8.0) pH Units Ur Specific [place] 1.029 H (1.010-1.025) Urine Protein 30 H (Neg-Trace) mg/dL Urine Glucose (UA) >=1000 H (Normal) mg/dL - EKG Data Prior EKG available for review: no EKG comments: 09/01/17 15:54 EKG dated 09/01/17 14:28 shows atrial fibrillation with rapid ventricular response and nonspecific ST and T-wave abnormality. - Impressions Impressions Chest X-Ray 08/31/17 23:36 IMPRESSION: 1. Minimal bibasilar opacities suggestive of partial atelectasis. Mild pneumonia may be considered in the differential diagnosis. D/ / 09/01/2017 05:37:16 Wagner Harrell MD / [facility] Interpreting Provider: Wagner Harrell MD Lumbar Spine X-Ray 09/01/17 08:00 IMPRESSION: Patient is status post posterior fusion and decompression at L3 through L5 as well as cystectomy at L3-4 with orthopedic hardware in place. No evidence for complication. Stable degenerative disc disease at L4-5. Nonspecific bowel gas pattern with prominent air-filled loops of what appear to be large bowel to include transverse colon and splenic and hepatic flexures, partially imaged. Findings may reflect an ileus. Clinical correlation suggested. D/ / 09/01/2017 14:22:38 Raciel Talavera MD / [facility] Interpreting Provider: Raciel Talavera MD Consult Discharge Plan - Plan Referrals: Brenda Her PAC [Physician Wireworker Supervisor] - 09/12/17 3:00 pm Saji Parada, AMBULATORY NURSE [Advanced Practice Nurse] - (Office will call patient at home with follow up appointment) Trini Roy MD [Primary Care Provider] - (Patient is going to [facility] no PCP appontment needed) Prescriptions: OxyCODONE Immed Rel [Roxicodone 5 MG] 5 mg PO Q6HR PRN 7 Days #28 tablet PRN Reason: Severe Pain <Paulette Ha - Last Filed: 09/07/17 10:39> Date of Encounter: 08/29/17 - Assessment and plan (1) Lumbar radiculitis Current Visit: Yes Status: Chronic (2) Status post lumbar spinal fusion Current Visit: Yes Status: Acute (3) Lumbar radiculopathy Current Visit: Yes Status: Chronic (4) Lumbar stenosis Current Visit: Yes Status: Chronic Qualifiers: Neurogenic claudication status: unspecified Qualified Code(s): M48.061 - Spinal stenosis, lumbar region without neurogenic claudication (5) Spondylolisthesis Current Visit: Yes Status: Chronic Qualifiers: Spinal region: lumbar Qualified Code(s): M43.16 - Spondylolisthesis, lumbar region (6) Leukocytosis Current Visit: Yes Status: Resolved Qualifiers: Leukocytosis type: unspecified Qualified Code(s): D72.829 - Elevated white blood cell count, unspecified (7) Sepsis Current Visit: Yes Status: Resolved Qualifiers: Sepsis type: sepsis due to unspecified organism Qualified Code(s): A41.9 - Sepsis, unspecified organism (8) Hyponatremia Current Visit: Yes Status: Resolved (9) Hypokalemia Current Visit: Yes Status: Acute (10) Atrial fibrillation with RVR Current Visit: Yes Status: Resolved (11) Ileus, postoperative Current Visit: Yes Status: Acute (12) DVT prophylaxis Current Visit: Yes Status: Acute - Time Spent With Patient Total time spent is greater than 50% in coordination of care (as documented) at patient's floor/unit and/or counseling patient: Internal Medicine - CN: HPI - Data of Consult Requesting Physician: Candelario Alvarado Jr MD - Consult Narrative History of present illness: Mr. Cr is a 82 year old male Internal Medicine - CN: Exam - Constitutional Vitals: Temp Pulse Resp BP Pulse Ox 98.5 F 74 18 145/78 94 09/07/17 07:13 09/07/17 07:13 09/07/17 07:13 09/07/17 07:13 09/07/17 07:13 Internal Medicine - CN: Reslt - Labs CBC & Chem 7: 09/07/17 05:49 09/07/17 05:49 Labs: Short CBC 09/07/17 Range/Units 05:49 WBC 7.9 (4.3-11.1) K/mcL Hgb 11.1 L (12.9-16.9) g/dL Hct 33.2 L (37.5-50.1) % Plt Count 283 (140-400) K/mcL Neutrophils # 6.3 (1.6-8.9) K/mcL BMP 09/07/17 05:49 Sodium 144 Potassium 2.7 L Chloride 112 H Carbon Dioxide 21 L BUN 9 Creatinine 0.70 Glucose 164 H Calcium 8.2 L - ABG Interpretation ABG results: PT/INR, D-dimer D-Dimer 1689 ng/mLFEU (0-500) H 09/01/17 16:30 - Attending Attestation I personally and independently interviewed and examined the patient with FLAT [employer]OCKER, and I reviewed the patient's medical records. I am in agreement with the assessment and proposed treatment plan. I discussed my findings and recommendation with the patient and answer all questions. The patient's medical records were edited to accurately reflect this encounter.
[2017-09-01] MEDS ORDERED: 0.9 % Sodium Chloride 1,000 ML IVC ONE (16:15)
[2017-09-01] MEDS: 0.9 % Sodium Chloride 1,000 ML IVC SCH ×2 (16:24→22:11)
[2017-09-01] MEDS: Piperacillin/Tazobactam 3.375 GM in 0.9 % Sodium Chloride Mini Bag 100 ML IVPB SCH (16:25)
[2017-09-01] MEDS: Acetaminophen 325 MG TABLET PO PRN (16:26)
[2017-09-01 16:53] LABS: Bilirubin,Urine Negative (Negative); Blood,Urine Negative (Negative); Clarity,Urine Clear (Clear); Color,Urine Dark Yellow (Yellow); Glucose,Urine (UA) 500 mg/dL (Normal); Ketones,Urine Trace mg/dL (Negative); Leukocyte Esterase,Urine Negative (Negative); Nitrite,Urine Negative (Negative); PH,Urine 5.5 pH Units (5.0-8.0); Protein,Urine 30 mg/dL (Neg-Trace); Specific Gravity,Urine > 1.030 (1.010-1.025); Urobilinogen,Urine Normal (Normal)
[2017-09-01 16:56] LABS: Bacteria,Urine None Seen per hpf (None-Few); Hyaline Casts,Urine None Seen per lpf (None-Few); RBC,Urine 0-3 per hpf (0-3); Squamous Epithelial Cell,Urine Few per lpf (None-Few); WBC,Urine 0-3 per hpf (0-3)
--- NOTE | 2017-09-01 16:58 | Cardiology Consult Note ---
Date of Encounter: 09/01/17 Time of Encounter: 14:55 Assessment and Plan (1) Atrial fibrillation with RVR Current Visit: Yes Status: Acute Atrial fibrillation with RVR. HR 110-120. May have been triggered by infectious process. Leukocytosis and fever noted. Sepsis work-up pending. Start metoprolol tartrate 25 mg BID for rate control. He is CHADs VASc= 2 for DM and age. I discussed anticoagulation. Due to concern for frequent falls recommend asa only at this time. Check TTE. Check TSH. Discussion w patient/family: The assessment and plan as outlined above was discussed with the patient and/or family members who expressed understanding and agreement. All questions were answered. Thank you for involving us in the care of your patient. Please call with any questions. History of Present Illness Consult date: 09/01/17 Requesting physician: Brenda Her Consult reason: new afib Chief complaint: weakness History of present illness: Mr. Cr is a 82 year old male with past medical history of lumbar stenosis, falls, diabetes, and thyroid disease who presented for planned lumbar spinal fusion with Dr. Caro. Last night he was noted to develop atrial fibrillation with RVR and confusion. Cardiology consulted for further management of atrial fibrillation. He is also found to have leukocytosis and is undergoing sepsis evaluation by the hospitalist. He denies palpitations or chest pain. Denies SOB. C/o feeling very weak and tired. Reports falling frequently in the past month. Denies previous cardiac history. Past Med Surg Social Fam HX - Past Medical History Medical history: diabetes, GERD Psychiatric history: no psych history - Past Surgical History Surgical History: orthopedic, other (Status post lumbar spinal fusion) - Social History Smoking Status: Never smoker Smokeless Tobacco Status: No Alcohol use: rarely Drug use: none - Family History Father Race: Family Member Ethnicity: Non- Living Status: Cause of : [place] Hx Family Cardiac Disorders: Yes ("Heart problems" [place]) Brother Race: Family Member Ethnicity: Non- Living Status: Still Living Hx Family Medical Disorders: No Sister Race: Family Member Ethnicity: Non- Living Status: Still Living Hx Family Musculoskeletal Disorders: Yes (Arthritis) Medications and Allergies Aspirin [Lo-Dose Aspirin EC] 81 mg PO DAILY 08/14/16 [History] Levothyroxine [Synthroid] 75 mcg PO 30 08/14/16 [History] Metformin HCl [Glucophage] 1,000 mg PO BID 08/14/16 [History] Naproxen [Naprosyn] 500 mg PO BID 08/14/16 [History] Nateglinide [Starlix] 60 mg PO BID 08/14/16 [History] Omeprazole 20 mg PO DAILY 08/14/16 [History] glipiZIDE [Glipizide ER] 10 mg PO DAILY 08/14/16 [History] Acetaminophen [Tylenol] 650 mg PO Q6HR PRN tablet 09/01/17 [Rx] OxyCODONE Immed Rel [Roxicodone 5 MG] 5 mg PO Q6HR PRN 7 Days #28 tablet [Rx] Simethicone [Gas-X] 80 mg PO TID PRN tab.chew 09/01/17 [Rx] 3 Allergy/AdvReac Type Severity Reaction Status Date / Time No Known Allergies Allergy Verified 08/29/17 09:54 All Systems Review: The remainder of the systems were reviewed and are negative Physical Examination Vital Signs, Last 4 Hours Temp Pulse Resp BP Pulse Ox 09/01/17 16:37 98.4 F 111 18 102/61 96 General: Conversant, No Apparent Distress HEENT: Atraumatic, Normocephaly, Mucus Membranes Moist Neck: No JVD, Normal carotid pulses Cardiac: Other (apical irregular) Lungs: Normal Breath Sounds, No Wheeze, Rales, Rhonchi Neuro: Alert and responsive, No focal deficits noted Abdomen: Soft, Non-Tender Skin: No rashes noted on visualized skin Musculoskeletal: No Chest Wall Tenderness, Other (genralized weakness) Extremities: No Clubbing, No Cyanosis, No Edema, Normal Pulses Results 09/01/17 14:26 09/01/17 14:26 Lab Results 08/31/17 08/31/17 09/01/17 21:48 21:48 14:26 WBC 14.5 H 12.1 H Hgb 11.8 L 11.2 L Hct 34.1 L 34.0 L Plt Count 192 183 Sodium 132 L Potassium 3.7 Chloride 100 Carbon Dioxide 20 L BUN 22 Creatinine 1.12 Glucose 197 H Calcium 8.8 Total Bilirubin AST ALT Alkaline Phosphatase 09/01/17 14:26 WBC Hgb Hct Plt Count Sodium 133 L Potassium 3.1 L Chloride 100 Carbon Dioxide 21 L BUN 29 H Creatinine 1.15 Glucose 234 H Calcium 8.9 Total Bilirubin 0.8 AST 17 ALT 19 Alkaline Phosphatase 63 - Imaging and Cardiology Echo: report reviewed - EKG Interpretation EKG results cardiology: personally reviewed Consult Discharge Plan - Plan Referrals: Trini Roy MD [Primary Care Provider] - Prescriptions: OxyCODONE Immed Rel [Roxicodone 5 MG] 5 mg PO Q6HR PRN 7 Days #28 tablet PRN Reason: Severe Pain
[2017-09-01] MEDS ORDERED: Isovue-370 500 ML INFUS..BTL IV ONE (18:29)
--- NOTE | 2017-09-01 18:38 | Event Note ---
<Noe Rogers - Last Filed: 09/01/17 18:38> Date of Encounter: 09/01/17 Time of Encounter: 18:30 Ordered D-dimer shows 1689. Concern for possible PE/DVT d/t post-surgical status. CTA of chest ordered to r/o PE. Bilateral Dopplers of LEs ordered to r/ o DVT(s). Order for second IV line placed per CTs recommendations. Will await results to determine need for heparin drip. <Paulette Ha - Last Filed: 09/08/17 01:48> Date of Encounter: 09/01/17
[2017-09-01] MEDS: *HR* Promethazine 25 MG/ML VIAL IVP PRN (21:30)
[2017-09-01] MEDS ORDERED: Haloperidol Lactate 5 MG/ML VIAL ONE (22:28)
[2017-09-01] MEDS: Haloperidol Lactate 5 MG/ML VIAL IVP ONE (22:32)
[2017-09-01] MEDS ORDERED: diazePAM 10 MG/2 ML SYRINGE IVP ONE (23:54)
[2017-09-02] MEDS: Haloperidol Lactate 5 MG/ML VIAL IVP ONE (00:07)
[2017-09-02] MEDS: Piperacillin/Tazobactam 3.375 GM in 0.9 % Sodium Chloride Mini Bag 100 ML IVPB SCH ×3 (00:28→16:23)
[2017-09-02] MEDS: diazePAM 5 MG TABLET PO PRN ×2 (06:29→16:21)
[2017-09-02] MEDS: *HR* Promethazine 25 MG/ML VIAL IVP PRN ×2 (06:29→23:23)
[2017-09-02 08:57] LABS: Basophils % 0.3 %; Eosinophils # 0.2 K/mcL (0.0-0.6); Hematocrit 31.8 % (37.5-50.1); Hemoglobin 10.6 g/dL (12.9-16.9); Immature Granulocytes % 0.2 % (0-4); Lymphocytes # 0.9 K/mcL (0.6-4.6); Lymphocytes % 10.3 %; Mean Corpuscular HGB Conc 33.3 g/dL (31.6-35.5); Mean Corpuscular Hemoglobin 30.4 pg (28.0-33.3); Mean Corpuscular Volume 91.1 fL (83.0-100.0); Mean Platelet Volume 11.2 fL (9.4-12.4); Monocytes # 0.6 K/mcL (0.0-1.3); Monocytes % 6.4 %; Neutrophils # 7.2 K/mcL (1.6-8.9); Platelet Count 176 K/mcL (140-400); Red Blood Count 3.49 M/mcL (4.19-5.50); Segmented Neutrophils % 80.8 %
[2017-09-02 08:59] LABS: BUN/Creatinine Ratio 27 (6-26); Blood Urea Nitrogen 25 mg/dL (8-23); Calcium 8.2 mg/dL (8.6-10.3); Carbon Dioxide 21 mEq/L (23-29); Chloride 105 mEq/L (98-107); Glucose 181 mg/dL (70-105); Osmolality,Calculated 293 (280-300); Potassium 3.1 mEq/L (3.5-5.1); Sodium 137 mEq/L (136-145); eGFR For African Americans > 60 (> 60); eGFR For Non-African Americans > 60 (> 60)
[2017-09-02] MEDS: Aspirin Enteric Coated 81 MG Tablet PO SCH (09:05)
[2017-09-02] MEDS: *HR* GlipiZIDE XL (24 HR) 10 MG TABLET PO SCH (09:05)
[2017-09-02] MEDS: *HR* Nateglinide 120 MG TABLET PO SCH ×2 (09:08→16:28)
[2017-09-02] MEDS: *HR* OxyCODONE Immed Rel 5 MG TABLET PO PRN ×2 (09:14→16:21)
[2017-09-02] MEDS: Insulin LISPRO 300 UNITS/3 ML VIAL SQ SCH ×4 (09:17→20:34)
--- NOTE | 2017-09-02 15:43 | Cardiology Progress Note ---
Date of Encounter: 09/02/17 Time of Encounter: 08:00 Assessment and Plan (1) Atrial fibrillation with RVR Current Visit: Yes Status: Acute Atrial fibrillation with RVR. HR continues to be elevated at 100-110. Avg Hr was 101 over last 12 hours. May have been triggered by infectious process. Increase metoprolol as tolerated. He is CHADs VASc= 2 for DM and age. I discussed anticoagulation. Due to concern for frequent falls recommend asa only at this time. TSH was normal. . TTE shows preserved EF, mild MRKayleigh Potassium 3.1-replacement ordered. Discussion w patient/family: The assessment and plan as outlined above was discussed with the patient and/or family members who expressed understanding and agreement. All questions were answered. Thank you for involving us in the care of your patient. Please call with any questions. Subjective Principal diagnosis: atrial fibrillation Interval history: Mr. Cr is more confused this morning. Denies chest pain. C/o not sleeping well. Objective General: Conversant, Other (confused and restless) HEENT: Atraumatic, Normocephaly, Mucus Membranes Moist Neck: No JVD, Normal carotid pulses Cardiac: Other (Irregularly irregular) Lungs: Normal Breath Sounds, No Wheeze, Rales, Rhonchi Neuro: Alert and responsive, No focal deficits noted Abdomen: Soft, Non-Tender Skin: No rashes noted on visualized skin Musculoskeletal: No Chest Wall Tenderness, Other (genralized weakness) Extremities: No Clubbing, No Cyanosis, No Edema, Normal Pulses Results 09/02/17 07:22 09/02/17 07:22 Lab Results 09/01/17 09/01/17 09/02/17 16:30 17:39 07:22 WBC 9.0 Hgb 10.6 L Hct 31.8 L Plt Count 176 D-Dimer 1689 H Sodium Potassium Chloride Carbon Dioxide BUN Creatinine Glucose Calcium TSH 2.535 09/02/17 07:22 WBC Hgb Hct Plt Count D-Dimer Sodium 137 Potassium 3.1 L Chloride 105 Carbon Dioxide 21 L BUN 25 H Creatinine 0.93 Glucose 181 H Calcium 8.2 L TSH - Imaging and Cardiology Echo: report reviewed - EKG Interpretation EKG results cardiology: personally reviewed - VTE Documentation of Mechanical Device: Intermittent pneumatic compression device Consult Discharge Plan - Plan Referrals: Trini Roy MD [Primary Care Provider] - Prescriptions: OxyCODONE Immed Rel [Roxicodone 5 MG] 5 mg PO Q6HR PRN 7 Days #28 tablet PRN Reason: Severe Pain
--- NOTE | 2017-09-02 15:44 | Orthopedics Progress Note ---
Date of Encounter: 09/02/17 Time of Encounter: 15:42 Subjective Principal diagnosis: Spondylolisthesis, lumbar stenosis, lumbar radiculopathy Interval history: Patient resting comfortably, patient is confused Back dressings clean dry intact, positive ecchymosis in right flank Patient's bilateral calves soft and nontender, grossly varus intact distally patient moves knees ankle and toes Improving leukocytosis PE workup negative Continue medical management for A. fib Objective Vital signs: Vital Signs Temp Pulse Resp BP Pulse Ox 09/02/17 11:27 99.1 F 86 18 108/64 96 09/02/17 07:13 99.3 F 96 20 99 09/02/17 04:36 99.2 F 93 18 118/79 100 09/02/17 00:00 98.9 F 89 20 111/64 99 09/01/17 20:30 98 F 106 18 111/72 98 09/01/17 20:15 98 F 102 20 100/78 98 09/01/17 16:37 98.4 F 111 18 102/61 96 Intake and Output 09/01/17 09/02/17 09/02/17 23:59 07:59 15:59 Intake Total 1300 / 1300 100 / 100 350 / 350 Output Total 100 / 100 Balance 1300 / 1300 0 / 0 350 / 350 Intake: IV Fluids 1200 / 1200 100 / 100 350 / 350 0.9 % Sodium Chloride 1,000 ML 1200 / 1200 @ 100 mls/hr IVC .Q10H [facility] Rx#: [id number] Zosyn 3.375 GM In 0.9 % Sodium 0 / 0 100 / 100 100 / 100 Chloride (Mini-Bag +) 100 ML @ 25 mls/hr IVPB Q8HR [facility] Rx#: [id number] Vancocin 1,250 MG In 0.9 % 250 / 250 Sodium Chloride 250 ML @ 167 mls/hr IVPB Q12H [facility] Rx#: [id number] Oral 100 / 100 0 / 0 Output: Urine 100 / 100 Other: Stool Size Smear Stool Consistency liquid Stool Characteristics [place] # Urine Diapers 1 0 1 Blood Glucose* 206 164 169 - Labs CBC & BMP: 09/02/17 07:22 09/02/17 07:22 Labs: Abnormal lab results RBC 3.49 M/mcL (4.19-5.50) L 09/02/17 07:22 Hgb 10.6 g/dL (12.9-16.9) L 09/02/17 07:22 Hct 31.8 % (37.5-50.1) L 09/02/17 07:22 D-Dimer 1689 ng/mLFEU (0-500) H 09/01/17 16:30 Potassium 3.1 mEq/L (3.5-5.1) L 09/02/17 07:22 Carbon Dioxide 21 mEq/L (23-29) L 09/02/17 07:22 BUN 25 mg/dL (8-23) H 09/02/17 07:22 BUN/Creatinine Ratio 27 (6-26) H 09/02/17 07:22 Glucose 181 mg/dL (70-105) H 09/02/17 07:22 POC Glucose 169 mg/dL (70-99) H 09/02/17 11:24 Calcium 8.2 mg/dL (8.6-10.3) L 09/02/17 07:22 Ur Specific [place] > 1.030 (1.010-1.025) H 09/01/17 15:05 Urine Protein 30 mg/dL (Neg-Trace) H 09/01/17 15:05 Urine Glucose (UA) 500 mg/dL (Normal) H 09/01/17 15:05 Urine Ketones Trace mg/dL (Negative) H 09/01/17 15:05 - VTE Documentation of Mechanical Device: Intermittent pneumatic compression device Consult Discharge Plan - Plan Referrals: Trini Roy MD [Primary Care Provider] - Prescriptions: OxyCODONE Immed Rel [Roxicodone 5 MG] 5 mg PO Q6HR PRN 7 Days #28 tablet PRN Reason: Severe Pain
[2017-09-02] MEDS: 0.9 % Sodium Chloride 1,000 ML IVC SCH (16:13)
[2017-09-02] MEDS: Haloperidol Lactate 5 MG/ML VIAL IVP SCH (20:23)
[2017-09-02] MEDS: diazePAM 10 MG/2 ML SYRINGE IVP PRN (20:35)
[2017-09-03] MEDS: diazePAM 10 MG/2 ML SYRINGE IVP PRN ×2 (01:31→20:28)
[2017-09-03] MEDS: Piperacillin/Tazobactam 3.375 GM in 0.9 % Sodium Chloride Mini Bag 100 ML IVPB SCH ×3 (02:46→15:58)
[2017-09-03] MEDS: 0.9 % Sodium Chloride 1,000 ML IVC SCH (02:47)
[2017-09-03] MEDS: *HR* Nateglinide 120 MG TABLET PO SCH ×2 (08:38→15:58)
[2017-09-03] MEDS: *HR* GlipiZIDE XL (24 HR) 10 MG TABLET PO SCH (08:39)
[2017-09-03] MEDS: Aspirin Enteric Coated 81 MG Tablet PO SCH (08:39)
[2017-09-03] MEDS: Insulin LISPRO 300 UNITS/3 ML VIAL SQ SCH ×4 (08:40→20:55)
[2017-09-03] MEDS: *HR* HYDROcodone/Acet 5/325 mg TABLET PO PRN ×3 (09:10→23:10)
--- NOTE | 2017-09-03 11:41 | Cardiology Progress Note ---
Date of Encounter: 09/03/17 Time of Encounter: 09:20 Assessment and Plan (1) Atrial fibrillation with RVR Current Visit: Yes Status: Acute Atrial fibrillation with RVR 3 days after spine surgery with findings concerning for sepsis. Now rate controlled on toprol xl. Avg HR 95 bpm over last 24 hours. Increase toprol if needed in future. Hr also noted to increase at times with pain. He is CHADs VASc= 2 for DM and age. I discussed anticoagulation. Due to concern for frequent falls recommend asa only at this time. TSH was normal. . TTE shows preserved EF, mild MR. Potassium 3.1-replacement ordered. Please call with questions. Cardiology will sign off. Out-pt f/u will be scheduled. Discussion w patient/family: The assessment and plan as outlined above was discussed with the patient and/or family members who expressed understanding and agreement. All questions were answered. Thank you for involving us in the care of your patient. Please call with any questions. Subjective Principal diagnosis: atrial fibrillation Interval history: Mr. Cr is more alert today. C/o pain in his back this morning. Results 09/02/17 07:22 09/02/17 07:22 - VTE Documentation of Mechanical Device: Intermittent pneumatic compression device Consult Discharge Plan - Plan Referrals: Trini Roy MD [Primary Care Provider] - Prescriptions: OxyCODONE Immed Rel [Roxicodone 5 MG] 5 mg PO Q6HR PRN 7 Days #28 tablet PRN Reason: Severe Pain
--- NOTE | 2017-09-03 15:40 | Internal Med Progress Note ---
Date of Encounter: 09/02/17 Time of Encounter: 18:00 - Assessment and plan (1) Sepsis Current Visit: Yes Status: Resolved Assessment and plan: The patient is on IV vancomycin and IV Zosyn. He is WBC count decreased from 12.1 thousand to 9.0 thousand. He is afebrile. Blood cultures were taken yesterday.CT angio of chest and the UA from yesterday didn't show any significant abnormalities. Qualifiers: Sepsis type: sepsis due to unspecified organism Qualified Code(s): A41.9 - Sepsis, unspecified organism (2) Status post lumbar spinal fusion Current Visit: Yes Status: Acute Assessment and plan: The surgery was done on August 29. The wound is looking good. (3) Atrial fibrillation with RVR Current Visit: Yes Status: Resolved Assessment and plan: Heart rate's under control after starting him on PO Metoprolol. See notes from cardiology. (4) Acute hypokalemia Current Visit: Yes Status: Deleted Assessment and plan: His hypokaliemia is likely due to IV fluids. Will keep him on supplemental potassium chloride. - Time Spent With Patient Total time spent is greater than 50% in coordination of care (as documented) at patient's floor/unit and/or counseling patient: 25 - 35 minutes - Subjective Interval history: The patient is mildly confused. He's not voicing any particular problems. Denies chest pain. Denies difficulty breathing. Denies coughing and wheezing. Denies abdominal pain, nausea and vomiting. His low back pain seems to be under control. - Constitutional Vitals: Temp Pulse Resp BP Pulse Ox 98.8 F 102 20 115/74 93 09/03/17 11:48 09/03/17 11:48 09/03/17 11:48 09/03/17 11:48 09/03/17 11:48 General appearance: Present: cooperative, A&O X 3, pleasant, no acute distress ( Intermittent somnolence during assessment), obese, answers questions appropriately - Respiratory Respiratory exam: Present: CTAB. Absent: accessory muscle use, rales, rhonchi, wheezes - Cardiovascular Cardiovascular exam: Present: RRR, +S1, +S2. Absent: diastolic murmur, gallop, rubs, systolic murmur - GI/Abdominal GI/Abdominal exam: Present: normal bowel sounds, soft, no peritoneal signs. Absent: distended, tenderness - Back Exam Additional comments: See orthopedic surgery notes. Internal Medicine: Result - Labs CBC & Chem 7: 09/11/17 04:00 09/11/17 04:00 - ABG Interpretation ABG results: PT/INR, D-dimer D-Dimer 1689 ng/mLFEU (0-500) H 09/01/17 16:30 - VTE Documentation of Mechanical Device: Intermittent pneumatic compression device Consult Discharge Plan - Plan Referrals: Brenda Her PAC [Physician [place] Sheriff] - Saji Parada CNP [Advanced Practice Nurse] - (Office will call patient at home with follow up appointment) Trini Roy MD [Primary Care Provider] - (Patient is going to [facility] no PCP appontment needed) Prescriptions: OxyCODONE Immed Rel [Roxicodone 5 MG] 5 mg PO Q6HR PRN 7 Days #28 tablet PRN Reason: Severe Pain
--- NOTE | 2017-09-03 15:41 | Internal Med Progress Note ---
Date of Encounter: 09/03/17 Time of Encounter: 15:41 - Assessment and plan (1) Sepsis Current Visit: Yes Status: Resolved Assessment and plan: Seems to be under control. His mental status is close to baseline. His afebrile. His WBC count is normal. He's blood cultures from two days ago are not growing any organisms. We will continue IV vancomycin. We will continue IV Zosyn. Qualifiers: Sepsis type: sepsis due to unspecified organism Qualified Code(s): A41.9 - Sepsis, unspecified organism (2) Status post lumbar spinal fusion Current Visit: Yes Status: Acute Assessment and plan: The wound looks good. See notes from orthopedic surgery. (3) Atrial fibrillation with RVR Current Visit: Yes Status: Resolved Assessment and plan: His atrial fibrillation has controlled ventricular rate. He is on Metoprolol. See notes from cardiology. The patient is not a candidate for a anticoagulation due to his frequent falls. (4) Acute hypokalemia Current Visit: Yes Status: Deleted Assessment and plan: This is likely due to IV fluids he has received recently. Will continue supplemental potassium chloride. - Time Spent With Patient Total time spent is greater than 50% in coordination of care (as documented) at patient's floor/unit and/or counseling patient: - Subjective Interval history: The patient seems to be less confused today. He continues to have off and on low back pain. It seems to be mild in intensity. Denies chest pain. Denies difficulty breathing. Denies coughing and wheezing. Denies abdominal pain, nausea and vomiting. He makes fair amounts of urine. - Constitutional Vitals: Temp Pulse Resp BP Pulse Ox 98.8 F 102 20 115/74 93 09/03/17 11:48 09/03/17 11:48 09/03/17 11:48 09/03/17 11:48 09/03/17 11:48 General appearance: Present: cooperative, A&O X 3, pleasant, no acute distress ( Intermittent somnolence during assessment), obese, answers questions appropriately - Respiratory Respiratory exam: Present: CTAB. Absent: accessory muscle use, rales, rhonchi, wheezes - Cardiovascular Cardiovascular exam: Present: irregular rhythm, +S1, +S2. Absent: diastolic murmur, gallop, rubs, systolic murmur - GI/Abdominal GI/Abdominal exam: Present: normal bowel sounds, soft, no peritoneal signs. Absent: distended, tenderness - Back Exam Additional comments: There is a surgical dressing applied to his low back. See notes from orthopedic surgery. Internal Medicine: Result - Labs CBC & Chem 7: 09/11/17 04:00 09/11/17 04:00 - ABG Interpretation ABG results: PT/INR, D-dimer D-Dimer 1689 ng/mLFEU (0-500) H 09/01/17 16:30 - VTE Documentation of Mechanical Device: Intermittent pneumatic compression device Consult Discharge Plan - Plan Referrals: Brenda Her PAC [Physician Attenuator] - Saji Parada CNP [Advanced Practice Nurse] - (Office will call patient at home with follow up appointment) Trini Roy MD [Primary Care Provider] - (Patient is going to [facility] no PCP appontment needed) Prescriptions: OxyCODONE Immed Rel [Roxicodone 5 MG] 5 mg PO Q6HR PRN 7 Days #28 tablet PRN Reason: Severe Pain
[2017-09-03] MEDS: 0.9 % Sodium Chloride w KCl 20 MEQ/1,000 ML MLS IVC SCH (15:59)
[2017-09-03] MEDS: diazePAM 5 MG TABLET PO PRN (16:14)
--- NOTE | 2017-09-03 17:59 | Orthopedics Progress Note ---
Date of Encounter: 09/03/17 Time of Encounter: 17:56 Subjective Principal diagnosis: atrial fibrillation Interval history: Patient resting comfortably, patient is more alert today He reports one episode of back pain earlier today, but comfortable now Back dressings is dry and intact Dressing has old dried blood, but no drainage from wound Positive ecchymosis in bilateral flank regions Patient's bilateral calves soft and nontender, grossly varus intact distally patient moves knees ankle and toes A/ POD # 5s/p PLIF Improving signs of sepsis A. fib Continue medical management for A. fib Continue IV antibiotics Daily dry dressing changes DVT prophylaxis Objective Vital signs: Vital Signs Temp Pulse Resp BP Pulse Ox 09/03/17 16:03 98.7 F 95 18 120/71 94 09/03/17 11:48 98.8 F 102 20 115/74 93 09/03/17 07:21 98.7 F 91 20 126/71 96 09/03/17 04:00 99.7 F H 98 24 127/72 97 09/03/17 01:03 100 F H 105 26 126/80 97 09/02/17 20:19 98.3 F 89 22 110/71 94 Intake and Output 09/03/17 09/03/17 09/03/17 07:59 15:59 23:59 Intake Total 1100 / 1100 340 / 340 Output Total 800 / 800 800 / 800 Balance 300 / 300 -460 / -460 Intake: IV Fluids 1100 / 1100 100 / 100 0.9 % Sodium Chloride 1,000 ML 1000 / 1000 @ 100 mls/hr IVC .Q10H [facility] Rx#: [id number] Zosyn 3.375 GM In 0.9 % Sodium 100 / 100 100 / 100 Chloride (Mini-Bag +) 100 ML @ 25 mls/hr IVPB Q8HR [facility] Rx#: [id number] Oral 240 / 240 Output: Catheter 800 / 800 800 / 800 Urethral ([place]) 800 / 800 Other: Meal Breakfast Nourishment/Supplement Percent of Meal Consumed 30% 25% Stool Size Moderate Stool Consistency liquid Stool Color Green # Urine Diapers 2 # Bowel Movements 1 # Bowel Movement Diapers 1 Blood Glucose* 180 217 144 - Labs CBC & BMP: 09/02/17 07:22 09/02/17 07:22 Labs: Abnormal lab results RBC 3.49 M/mcL (4.19-5.50) L 09/02/17 07:22 Hgb 10.6 g/dL (12.9-16.9) L 09/02/17 07:22 Hct 31.8 % (37.5-50.1) L 09/02/17 07:22 D-Dimer 1689 ng/mLFEU (0-500) H 09/01/17 16:30 Potassium 3.1 mEq/L (3.5-5.1) L 09/02/17 07:22 Carbon Dioxide 21 mEq/L (23-29) L 09/02/17 07:22 BUN 25 mg/dL (8-23) H 09/02/17 07:22 BUN/Creatinine Ratio 27 (6-26) H 09/02/17 07:22 Glucose 181 mg/dL (70-105) H 09/02/17 07:22 POC Glucose 144 mg/dL (70-99) H 09/03/17 15:59 Calcium 8.2 mg/dL (8.6-10.3) L 09/02/17 07:22 Ur Specific [place] > 1.030 (1.010-1.025) H 09/01/17 15:05 Urine Protein 30 mg/dL (Neg-Trace) H 09/01/17 15:05 Urine Glucose (UA) 500 mg/dL (Normal) H 09/01/17 15:05 Urine Ketones Trace mg/dL (Negative) H 09/01/17 15:05 - VTE Documentation of Mechanical Device: Intermittent pneumatic compression device Consult Discharge Plan - Plan Referrals: Trini Roy MD [Primary Care Provider] - Prescriptions: OxyCODONE Immed Rel [Roxicodone 5 MG] 5 mg PO Q6HR PRN 7 Days #28 tablet PRN Reason: Severe Pain
[2017-09-03] MEDS: *HR* Promethazine 25 MG/ML VIAL IVP PRN (20:29)
[2017-09-03] MEDS: Haloperidol Lactate 5 MG/ML VIAL IVP SCH (20:29)
[2017-09-04] MEDS: OXYCODONE Oral CONC 10 MG/0.5 ML ORAL.SYG SL PRN ×3 (01:32→18:03)
[2017-09-04] MEDS: Piperacillin/Tazobactam 3.375 GM in 0.9 % Sodium Chloride Mini Bag 100 ML IVPB SCH ×3 (01:52→16:00)
[2017-09-04 02:29] LABS: BUN/Creatinine Ratio 19 (6-26); Blood Urea Nitrogen 16 mg/dL (8-23); Calcium 8.1 mg/dL (8.6-10.3); Carbon Dioxide 21 mEq/L (23-29); Chloride 110 mEq/L (98-107); Glucose 207 mg/dL (70-105); Magnesium 1.8 mg/dL (1.6-2.6); Osmolality,Calculated 301 (280-300); Potassium 2.7 mEq/L (3.5-5.1); Sodium 142 mEq/L (136-145); eGFR For African Americans > 60 (> 60); eGFR For Non-African Americans > 60 (> 60)
[2017-09-04 02:30] LABS: Hematocrit 30.6 % (37.5-50.1); Hemoglobin 10.3 g/dL (12.9-16.9); Mean Corpuscular HGB Conc 33.7 g/dL (31.6-35.5); Mean Corpuscular Hemoglobin 31.5 pg (28.0-33.3); Mean Corpuscular Volume 93.6 fL (83.0-100.0); Mean Platelet Volume 10.7 fL (9.4-12.4); Platelet Count 204 K/mcL (140-400); Red Blood Count 3.27 M/mcL (4.19-5.50); Red Cell Distribution Width 14.3 % (11.5-14.5)
[2017-09-04] MEDS: diazePAM 10 MG/2 ML SYRINGE IVP PRN (04:07)
[2017-09-04] MEDS ORDERED: *HR* FentaNYL (PF) 100 MCG/2 ML VIAL IVP ONE ×2 (05:05→05:30)
--- NOTE | 2017-09-04 05:16 | Event Note ---
Date of Encounter: 09/04/17 Time of Encounter: 05:08 Called by the patient's nurse stating that the patient is in significant distress and abdomen is distended. I went to evaluate the patient and he is moaning and seems in significant distress. He is s/p lumbar fusion 08/29 and his stay has been complicated by sepsis of unclear source and AMS. He has been maintained on broad spectrum IV abx. He seems altered and is not able to answer my questions completely but seems in pain. He has a left flank ecchymosis and his nurse tells me that it has been there for a few days. He barely has any bowel sounds on exam and his abdomen is significantly distended. He is tachypnic and is on 2 L O2. Breath sounds are diminished. He is not on any anticoag or anti-platelets. Patient has had only liquid stools that are minimal per his nurse. Labs from this morning show low K at 2.7 but otherwise unremarkable. ??ileus/hematoma/obstruction Will get a CT chest/abd/pelvis. Fentanyl 50 mcg IV to be given now. r/u C. Diff
[2017-09-04] MEDS: Insulin LISPRO 300 UNITS/3 ML VIAL SQ SCH ×4 (08:05→20:10)
[2017-09-04] MEDS: Aspirin Enteric Coated 81 MG Tablet PO SCH (08:05)
[2017-09-04] MEDS: *HR* GlipiZIDE XL (24 HR) 10 MG TABLET PO SCH (08:05)
[2017-09-04] MEDS: *HR* Nateglinide 120 MG TABLET PO SCH ×2 (08:05→16:37)
[2017-09-04] MEDS: *HR* HYDROcodone/Acet 5/325 mg TABLET PO PRN ×2 (11:47→19:43)
[2017-09-04] MEDS: 0.9 % Sodium Chloride w KCl 20 MEQ/1,000 ML MLS IVC SCH (16:30)
[2017-09-04] MEDS: Metoclopramide 10 MG/2 ML VIAL IVP SCH ×2 (16:37→23:10)
[2017-09-04] MEDS: *HR* Metformin 500 MG TABLET PO SCH (16:37)
--- NOTE | 2017-09-04 17:46 | Orthopedics Progress Note ---
Date of Encounter: 09/04/17 Time of Encounter: 17:43 Subjective Principal diagnosis: atrial fibrillation Interval history: Patient reporting abdominal pain Somewhat more confused today His nurse reports that the patient passed significant amount of gas when placed on commode this afternoon Back dressings was changed Abdomen is distended Positive ecchymosis in bilateral flank regions Patient's bilateral calves soft and nontender, grossly neurovascularly intact distally, patient moves knees ankle and toes CT scan of abdomen consistent with ileus A/ POD # 6 s/p PLIF Improving signs of sepsis A. fib Ileus Continue medical management for A. fib Continue IV antibiotics Daily dry dressing changes Gen Surgery consult pending DVT prophylaxis Objective Vital signs: Vital Signs Temp Pulse Resp BP Pulse Ox 09/04/17 16:21 97.6 F 86 18 107/72 97 09/04/17 12:30 97.3 F L 83 18 106/71 97 09/04/17 10:57 97.3 F L 83 18 106/71 97 09/04/17 08:00 97.3 F L 104 24 93/64 95 09/04/17 07:19 97.3 F L 104 24 93/64 95 09/04/17 03:54 97.2 F L 94 28 117/93 97 09/03/17 23:58 99.1 F 105 20 112/79 94 09/03/17 19:59 101.4 F H 96 26 102/68 94 Intake and Output 09/04/17 09/04/17 09/04/17 07:59 15:59 23:59 Intake Total 950 / 950 580 / 580 700 / 700 Output Total 450 / 450 150 / 150 Balance 500 / 500 430 / 430 700 / 700 Intake: IV Fluids 950 / 950 100 / 100 500 / 500 KCl 20 mEq in 0.9% Sodium 600 / 600 0 / 0 400 / 400 Chloride 20 meq In 1,000 ml @ 75 mls/hr IVC .[id number] [facility] Rx#: [id number] Zosyn 3.375 GM In 0.9 % Sodium 100 / 100 100 / 100 Chloride (Mini-Bag +) 100 ML @ 25 mls/hr IVPB Q8HR [facility] Rx#: [id number] Potassium Chloride 10 mEq/100mL 100 / 100 10 meq In 100 ml @ 100 mls/hr IVPB Q1H [facility] Rx#:[id number] Vancocin 1,250 MG In 0.9 % 250 / 250 Sodium Chloride 250 ML @ 167 mls/hr IVPB Q12H [facility] Rx#: [id number] Oral 0 / 0 480 / 480 200 / 200 Output: Catheter 450 / 450 150 / 150 Other: Meal Breakfast Percent of Meal Consumed 0% Stool Size Moderate Stool Consistency liquid liquid Stool Color Green Green # Bowel Movements 1 Weight 87.4 kg Blood Glucose* 184 206 199 Patient Weight 09/04/17 23:59 Weight 87.4 kg - Labs CBC & BMP: 09/04/17 01:43 09/04/17 01:43 Labs: Abnormal lab results RBC 3.27 M/mcL (4.19-5.50) L 09/04/17 01:43 Hgb 10.3 g/dL (12.9-16.9) L 09/04/17 01:43 Hct 30.6 % (37.5-50.1) L 09/04/17 01:43 D-Dimer 1689 ng/mLFEU (0-500) H 09/01/17 16:30 Potassium 2.7 mEq/L (3.5-5.1) L 09/04/17 01:43 Chloride 110 mEq/L (98-107) H 09/04/17 01:43 Carbon Dioxide 21 mEq/L (23-29) L 09/04/17 01:43 Glucose 207 mg/dL (70-105) H 09/04/17 01:43 POC Glucose 199 mg/dL (70-99) H 09/04/17 16:21 Calculated Osmolality 301 (280-300) H 09/04/17 01:43 Calcium 8.1 mg/dL (8.6-10.3) L 09/04/17 01:43 Ur Specific [place] > 1.030 (1.010-1.025) H 09/01/17 15:05 Urine Protein 30 mg/dL (Neg-Trace) H 09/01/17 15:05 Urine Glucose (UA) 500 mg/dL (Normal) H 09/01/17 15:05 Urine Ketones Trace mg/dL (Negative) H 09/01/17 15:05 Vancomycin Trough 12 mcg/mL (5-10) H 09/04/17 07:27 - VTE Documentation of Mechanical Device: Intermittent pneumatic compression device Consult Discharge Plan - Plan Referrals: Saji Parada CNP [Advanced Practice Nurse] - (SENT WEB REQUEST ON 09-04-17 @ [phone]) Trini Roy MD [Primary Care Provider] - (SENT WEB REQUEST ON 09-04-17 [phone]) Prescriptions: OxyCODONE Immed Rel [Roxicodone 5 MG] 5 mg PO Q6HR PRN 7 Days #28 tablet PRN Reason: Severe Pain
[2017-09-04] MEDS: *HR* Promethazine 25 MG/ML VIAL IVP PRN (19:43)
[2017-09-04] MEDS: Haloperidol Lactate 5 MG/ML VIAL IVP SCH (19:43)
--- NOTE | 2017-09-04 22:29 | Internal Med Progress Note ---
Date of Encounter: 09/04/17 Time of Encounter: 19:00 - Assessment and plan (1) Ileus, postoperative Current Visit: Yes Status: Acute Assessment and plan: It looks like he is developing ileus. His surgery was on August 29. However he has spent a lot of time in bed. He has been taking pain killers for a while. I will keep him on a npo diet. I will start him on IV Metaclopramide. (2) Acute hypokalemia Current Visit: Yes Status: Acute Assessment and plan: He continues to have hypokaliemia. We will continue supplemental potassium chloride. (3) Status post lumbar spinal fusion Current Visit: Yes Status: Acute (4) PAF (paroxysmal atrial fibrillation) Current Visit: Yes Status: Chronic Assessment and plan: He's currently normal sinus rhythm. Will keep him on Metoprolol. See cardiology notes. (5) Sepsis Current Visit: Yes Status: Resolved Assessment and plan: Seems to be under control. He is afebrile. He's WBC count from today's 10.3 thousand. Will continue IV vancomycin. Will continue IV Zosyn. Qualifiers: Sepsis type: sepsis due to unspecified organism Qualified Code(s): A41.9 - Sepsis, unspecified organism - Time Spent With Patient Total time spent is greater than 50% in coordination of care (as documented) at patient's floor/unit and/or counseling patient: 25 - 35 minutes - Subjective Interval history: The patient has had progressing abdominal distention started sometime last night. It is associated with mild abdominal discomfort. It is not associated with nausea or vomiting. Denies chest pain. Denies difficulty breathing, coughing and wheezing. He makes fair amounts of urine. He doesn't seem to be confused anymore. - Constitutional Vitals: Temp Pulse Resp BP Pulse Ox 99.4 F 93 18 124/63 91 09/04/17 19:42 09/04/17 19:42 09/04/17 19:42 09/04/17 19:42 09/04/17 19:42 General appearance: Present: cooperative, A&O X 3, pleasant, no acute distress ( Intermittent somnolence during assessment), obese, answers questions appropriately - Respiratory Respiratory exam: Present: CTAB. Absent: accessory muscle use, rales, rhonchi, wheezes - Cardiovascular Cardiovascular exam: Present: RRR, +S1, +S2. Absent: diastolic murmur, gallop, rubs, systolic murmur - GI/Abdominal GI/Abdominal exam: Present: normal bowel sounds, soft, no peritoneal signs. Absent: distended, tenderness - Skin Skin exam: Present: dry, intact Additional comments: There is a surgical dressing in the area of lower back. Internal Medicine: Result - Labs CBC & Chem 7: 09/11/17 04:00 09/11/17 04:00 Labs: Short CBC 09/04/17 Range/Units 01:43 WBC 8.4 (4.3-11.1) K/mcL Hgb 10.3 L (12.9-16.9) g/dL Hct 30.6 L (37.5-50.1) % Plt Count 204 (140-400) K/mcL BMP 09/04/17 01:43 Sodium 142 Potassium 2.7 L Chloride 110 H Carbon Dioxide 21 L BUN 16 Creatinine 0.85 Glucose 207 H Calcium 8.1 L - ABG Interpretation ABG results: PT/INR, D-dimer D-Dimer 1689 ng/mLFEU (0-500) H 09/01/17 16:30 - Impressions Impressions Chest X-Ray 09/04/17 05:12 IMPRESSION: Stable bibasilar atelectasis or pneumonia. D/ / Srini Mcghee MD / Srini Mcghee MD Interpreting Provider: Srini Mcghee MD Chest CT 09/04/17 05:19 IMPRESSION: 1. Mild dependent consolidative opacity within the basilar aspects of both lower lobes likely reflects atelectasis, though underlying pneumonia or aspiration are also diagnostic considerations. 2. Trace bilateral pleural effusions with stable mild chronic bibasilar predominant interstitial pulmonary fibrosis. 3. The bowel gas pattern is most consistent with a colonic ileus without evidence of acute bowel wall thickening, inflammation, or evidence of bowel obstruction. 4. Mild amount of nonspecific intra-abdominopelvic ascites of questionable clinical significance. 5. Nonobstructing left nephrolithiasis. 6. Stable hepatic and left renal cysts. 7. Mild prostatomegaly. 8. Mild diffuse anasarca. D/ / 09/04/2017 08:48:16 Linus Vargas MD / maay Interpreting Provider: Linus Vargas MD Abdomen/Pelvis CT 09/04/17 05:20 IMPRESSION: 1. Mild dependent consolidative opacity within the basilar aspects of both lower lobes likely reflects atelectasis, though underlying pneumonia or aspiration are also diagnostic considerations. 2. Trace bilateral pleural effusions with stable mild chronic bibasilar predominant interstitial pulmonary fibrosis. 3. The bowel gas pattern is most consistent with a colonic ileus without evidence of acute bowel wall thickening, inflammation, or evidence of bowel obstruction. 4. Mild amount of nonspecific intra-abdominopelvic ascites of questionable clinical significance. 5. Nonobstructing left nephrolithiasis. 6. Stable hepatic and left renal cysts. 7. Mild prostatomegaly. 8. Mild diffuse anasarca. D/ / 09/04/2017 08:48:16 Linus Vargas MD / [facility] Interpreting Provider: Linus Vargas MD - VTE Documentation of Mechanical Device: Intermittent pneumatic compression device Consult Discharge Plan - Plan Referrals: Brenda Her PAC [Physician Tractor Engine Mechanic] - Saji Parada CNP [Advanced Practice Nurse] - (Office will call patient at home with follow up appointment) Trini Roy MD [Primary Care Provider] - (Patient is going to [facility] no PCP appontment needed) Prescriptions: OxyCODONE Immed Rel [Roxicodone 5 MG] 5 mg PO Q6HR PRN 7 Days #28 tablet PRN Reason: Severe Pain
[2017-09-05] MEDS: Piperacillin/Tazobactam 3.375 GM in 0.9 % Sodium Chloride Mini Bag 100 ML IVPB SCH ×3 (00:36→15:07)
[2017-09-05] MEDS: diazePAM 10 MG/2 ML SYRINGE IVP PRN (01:18)
[2017-09-05] MEDS ORDERED: Acetaminophen 650 MG RECTAL SUPP RC ONE (02:34)
[2017-09-05 04:56] LABS: Hematocrit 30.7 % (37.5-50.1); Hemoglobin 10.3 g/dL (12.9-16.9); Mean Corpuscular HGB Conc 33.6 g/dL (31.6-35.5); Mean Corpuscular Hemoglobin 31.5 pg (28.0-33.3); Mean Corpuscular Volume 93.9 fL (83.0-100.0); Mean Platelet Volume 10.8 fL (9.4-12.4); Platelet Count 221 K/mcL (140-400); Red Blood Count 3.27 M/mcL (4.19-5.50); Red Cell Distribution Width 14.8 % (11.5-14.5)
[2017-09-05 05:21] LABS: BUN/Creatinine Ratio 22 (6-26); Blood Urea Nitrogen 17 mg/dL (8-23); Calcium 8.1 mg/dL (8.6-10.3); Carbon Dioxide 18 mEq/L (23-29); Chloride 113 mEq/L (98-107); Glucose 227 mg/dL (70-105); Osmolality,Calculated 305 (280-300); Potassium 3.1 mEq/L (3.5-5.1); Sodium 143 mEq/L (136-145); eGFR For African Americans > 60 (> 60); eGFR For Non-African Americans > 60 (> 60)
[2017-09-05] MEDS: *HR* Metformin 500 MG TABLET PO SCH (08:30)
[2017-09-05] MEDS: *HR* Nateglinide 120 MG TABLET PO SCH (08:30)
[2017-09-05] MEDS: *HR* GlipiZIDE XL (24 HR) 10 MG TABLET PO SCH (08:32)
[2017-09-05] MEDS: OXYCODONE Oral CONC 10 MG/0.5 ML ORAL.SYG SL PRN ×2 (08:46→15:04)
[2017-09-05] MEDS: Aspirin Enteric Coated 81 MG Tablet PO SCH (08:48)
[2017-09-05] MEDS: Metoclopramide 10 MG/2 ML VIAL IVP SCH ×2 (08:48→11:59)
[2017-09-05] MEDS: Insulin LISPRO 300 UNITS/3 ML VIAL SQ SCH ×4 (09:07→22:28)
--- NOTE | 2017-09-05 11:30 | Electrocardiograph Report ---
[address] [address] Test Date: 2017-09-01 Pat Name: Guille Cr Department: 114 Room: 2N09 Gender: M School Secretary: : 1935 Requested By: Brenda Her Order Number: [id number] Reading MD: Carmine Cunningham Measurements Intervals Connell Rate: 121 P: [place]: 0 QRS: 17 QRSD: 93 T: -1 QT: 343 QTc: 415 Interpretive Statements ATRIAL FIBRILLATION WITH RAPID VENTRICULAR RESPONSE NONSPECIFIC ST & T-WAVE ABNORMALITY Electronically Signed On 09-05-2017 11:28:55 EDT by Carmine Cunningham
[2017-09-05] MEDS: 0.9 % Sodium Chloride w KCl 20 MEQ/1,000 ML MLS IVC SCH (12:02)
[2017-09-05] MEDS: diazePAM 5 MG TABLET PO PRN ×2 (15:05→22:28)
--- NOTE | 2017-09-05 17:01 | Internal Med Progress Note ---
Date of Encounter: 09/05/17 Time of Encounter: 16:59 - Assessment and plan (1) Ileus, postoperative Current Visit: Yes Status: Acute Assessment and plan: Still with abdominal distension and TTP. No nausea or vomiting. Will defer NG tube at this time. Some loose stools per nursing staff. Will monitor closely. Switch to IV PPI. Keep NPO. Will discontinue all opioids. Consider chewing gum. Consider surgery consult if no significant improvement by tomorrow AM. Will monitor closely. (2) Status post lumbar spinal fusion Current Visit: Yes Status: Acute Assessment and plan: Management per primary. (3) Lumbar radiculitis Current Visit: Yes Status: Chronic Assessment and plan: Management per primary. (4) Lumbar radiculopathy Current Visit: Yes Status: Chronic Assessment and plan: Management per primary. (5) Lumbar stenosis Current Visit: Yes Status: Chronic Assessment and plan: Management per primary. Qualifiers: Neurogenic claudication status: unspecified Qualified Code(s): M48.061 - Spinal stenosis, lumbar region without neurogenic claudication (6) Spondylolisthesis Current Visit: Yes Status: Chronic Assessment and plan: Management per primary. Qualifiers: Spinal region: lumbar Qualified Code(s): M43.16 - Spondylolisthesis, lumbar region (7) Leukocytosis Current Visit: Yes Status: Resolved Assessment and plan: Resolved. On IV vancomycin and IV zosyn as per below. Recheck CBC in AM. Qualifiers: Leukocytosis type: unspecified Qualified Code(s): D72.829 - Elevated white blood cell count, unspecified (8) Sepsis Current Visit: Yes Status: Resolved Assessment and plan: Resolved. Complete full course of IV vancomycin and IV zosyn. Qualifiers: Sepsis type: sepsis due to unspecified organism Qualified Code(s): A41.9 - Sepsis, unspecified organism (9) Hyponatremia Current Visit: Yes Status: Resolved Assessment and plan: Resolved. On IVF. Recheck BMP in AM. (10) Drop in hemoglobin Current Visit: Yes Status: Acute (11) Hypokalemia Current Visit: Yes Status: Resolved Assessment and plan: Hgb stable. Recheck CBC in AM. (12) Atrial fibrillation with RVR Current Visit: Yes Status: Resolved Assessment and plan: Resolved. Continue telemetry. - Time Spent With Patient Total time spent is greater than 50% in coordination of care (as documented) at patient's floor/unit and/or counseling patient: less than 15 minutes - Subjective Interval history: Patient had no acute events overnight. Nursing staff reports 2 loose BM, and no nausea or vomiting. He still has moderate TTP of abdomen. He does not voice any concerns. He is alert and oriented x 3 today. He denies chest pain, SOB, nausea, vomiting, fever, or chills. - Constitutional Vitals: Temp Pulse Resp BP Pulse Ox 98.0 F 82 20 117/75 95 09/05/17 16:15 09/05/17 16:15 09/05/17 16:15 09/05/17 16:15 09/05/17 16:15 General appearance: Present: cooperative, A&O X 3, pleasant, no acute distress, obese, answers questions appropriately - Respiratory Respiratory exam: Present: CTAB. Absent: accessory muscle use, rales, rhonchi, wheezes Additional comments: Normal WOB - Cardiovascular Cardiovascular exam: Present: RRR, +S1, +S2. Absent: diastolic murmur, gallop, rubs, systolic murmur Additional comments: No BLE edema - GI/Abdominal GI/Abdominal exam: Present: distended, hypoactive bowel sounds, soft, tenderness. Absent: hepatomegaly, mass, splenomegaly - Psychiatric Psychiatric exam: Present: normal affect, normal mood. Absent: agitated, anxious, depressed - Skin Skin exam: Present: dry, intact, warm. Absent: cyanosis, rash Internal Medicine: Result - Labs CBC & Chem 7: 09/05/17 04:30 09/05/17 04:30 Labs: Short CBC 09/05/17 Range/Units 04:30 WBC 9.7 (4.3-11.1) K/mcL Hgb 10.3 L (12.9-16.9) g/dL Hct 30.7 L (37.5-50.1) % Plt Count 221 (140-400) K/mcL [facility] 09/05/17 04:30 Sodium 143 Potassium 3.1 L Chloride 113 H Carbon Dioxide 18 L BUN 17 Creatinine 0.78 Glucose 227 H Calcium 8.1 L - ABG Interpretation ABG results: PT/INR, D-dimer D-Dimer 1689 ng/mLFEU (0-500) H 09/01/17 16:30 - Impressions Impressions Chest X-Ray 08/31/17 23:36 IMPRESSION: 1. Minimal bibasilar opacities suggestive of partial atelectasis. Mild pneumonia may be considered in the differential diagnosis. D/ / 09/01/2017 05:37:16 Wagner Harrell MD / [facility] Interpreting Provider: Wagner Harrell MD Chest CT 09/04/17 05:19 IMPRESSION: 1. Mild dependent consolidative opacity within the basilar aspects of both lower lobes likely reflects atelectasis, though underlying pneumonia or aspiration are also diagnostic considerations. 2. Trace bilateral pleural effusions with stable mild chronic bibasilar predominant interstitial pulmonary fibrosis. 3. The bowel gas pattern is most consistent with a colonic ileus without evidence of acute bowel wall thickening, inflammation, or evidence of bowel obstruction. 4. Mild amount of nonspecific intra-abdominal and pelvic ascites, of questionable clinical significance. 5. Nonobstructing left nephrolithiasis. 6. Stable hepatic and left renal cysts. 7. Mild prostatomegaly. 8. Mild diffuse anasarca. D/ : / 09/04/2017 08:48:16 Linus Vargas MD / [facility] Interpreting Provider: Linus Vargas MD Abdomen/Pelvis CT 09/04/17 05:20 IMPRESSION: 1. Mild dependent consolidative opacity within the basilar aspects of both lower lobes likely reflects atelectasis, though underlying pneumonia or aspiration are also diagnostic considerations. 2. Trace bilateral pleural effusions with stable mild chronic bibasilar predominant interstitial pulmonary fibrosis. 3. The bowel gas pattern is most consistent with a colonic ileus without evidence of acute bowel wall thickening, inflammation, or evidence of bowel obstruction. 4. Mild amount of nonspecific intra-abdominal and pelvic ascites, of questionable clinical significance. 5. Nonobstructing left nephrolithiasis. 6. Stable hepatic and left renal cysts. 7. Mild prostatomegaly. 8. Mild diffuse anasarca. D/ : / 09/04/2017 08:48:16 Linus Vargas MD / [facility] Interpreting Provider: Linus Vargas MD - VTE Documentation of Mechanical Device: Intermittent pneumatic compression device Consult Discharge Plan - Plan Referrals: Brenda Her, PAC [Physician Aerial Photogrammetrist] - 09/12/17 3:00 pm Saji Parada CNP [Advanced Practice Nurse] - (Office will call patient at home with follow up appointment) Trini Roy MD [Primary Care Provider] - (Patient is going to [facility] no PCP appontment needed) Prescriptions: RX: OxyCODONE Immed Rel [Roxicodone 5 MG] 5 mg PO Q6HR PRN 7 Days #28 tablet PRN Reason: Severe Pain
[2017-09-05] MEDS: Pantoprazole 40 MG VIAL IVP SCH (17:59)
--- NOTE | 2017-09-05 18:04 | Orthopedics Progress Note ---
Date of Encounter: 09/05/17 Time of Encounter: 12:45 - Assessment and Plan (1) Status post lumbar spinal fusion Current Visit: Yes Status: Acute (2) Lumbar stenosis Current Visit: Yes Status: Chronic Qualifiers: Neurogenic claudication status: unspecified Qualified Code(s): M48.061 - Spinal stenosis, lumbar region without neurogenic claudication (3) Lumbar radiculopathy Current Visit: Yes Status: Chronic (4) Spondylolisthesis Current Visit: Yes Status: Chronic Qualifiers: Spinal region: lumbar Qualified Code(s): M43.16 - Spondylolisthesis, lumbar region Subjective Principal diagnosis: Spondylolisthesis, lumbar stenosis, lumbar radiculopathy Interval history: Patient is status post posterior lumbar interbody fusion L3-L5 on 08/29/[address] Alvarado for Spondylolisthesis, lumbar stenosis, lumbar radiculopathy The patient is without complaints. Patient's mental status appears at baseline as compared to this provider's experience with patient last week. Incision is intact with no active drainage noted. Scant serosanguineous drainage noted on the dressing at the proximal incision site. Mild swelling noted to the right side of the incision her this is not indurated, fluctuant, or tender to palpation. Neurovascularly intact with regard to bilateral lower extremities. Fires all upper and lower extremity motor groups. He is noted to have a significantly distended and somewhat tender to palpation abdomen. Patient's mouth is dry and his voice is hoarse. Discussed with nurse who inform this provided that the patient is nothing by mouth for bowel rest. Patient is noted to be on O2 via nasal cannula. Assessment: Status post lumbar fusion - 08/29/17 Sudden onset confusion - 09/01/17, now improving Ileus - diagnosised over the weekend; general surgery has been consulted by hospitalist Plan: Brace present and patient/staff aware to apply with activity. Mobilize with therapy Continue analgesics as needed - would encouraged limited use of opiates secondary to ileus. Discharge planning - on hold secondary to medical complications Radiographs reviewed Defer care of other medical problems to his hospitalist team. Objective Vital signs: Vital Signs Temp Pulse Resp BP Pulse Ox 09/05/17 16:15 98.0 F 82 20 117/75 95 09/05/17 11:00 97.7 F 76 20 107/73 97 09/05/17 07:05 97.6 F 92 19 121/83 99 09/05/17 04:40 16 144/81 16 09/05/17 03:35 99.6 F 100 144/81 16 09/04/17 23:51 99.0 F 97 16 115/84 99 09/04/17 23:40 18 124/63 91 09/04/17 19:42 99.4 F 93 18 124/63 91 Intake and Output 09/05/17 09/05/17 09/05/17 07:59 15:59 23:59 Intake Total 1200 / 1200 350 / 350 Output Total 900 / 900 Balance 300 / 300 350 / 350 Intake: IV Fluids 1200 / 1200 350 / 350 KCl 20 mEq in 0.9% Sodium 1000 / 1000 Chloride 20 meq In 1,000 ml @ 75 mls/hr IVC .[id number] DORETHA Rx#: [id number] Zosyn 3.375 GM In 0.9 % Sodium 100 / 100 100 / 100 Chloride (Mini-Bag +) 100 ML @ 25 mls/hr IVPB Q8HR DORETHA Rx#: [id number] Potassium Chloride 10 mEq/100mL 100 / 100 10 meq In 100 ml @ 100 mls/hr IVPB Q1H DORETHA Rx#:[id number] Vancocin 1,500 MG In 0.9 % 250 / 250 Sodium Chloride 250 ML @ 166.67 mls/hr IVPB Q24H DORETHA Rx#: [id number] Output: Urine 600 / 600 Catheter 300 / 300 Other: Meal NPO Percent of Meal Consumed 0% Weight 87.5 kg Blood Glucose* 191 159 Patient Weight 09/05/17 23:59 Weight 87.5 kg - Labs CBC & BMP: 09/05/17 04:30 09/05/17 04:30 Labs: Abnormal lab results RBC 3.27 M/mcL (4.19-5.50) L 09/05/17 04:30 Hgb 10.3 g/dL (12.9-16.9) L 09/05/17 04:30 Hct 30.7 % (37.5-50.1) L 09/05/17 04:30 RDW 14.8 % (11.5-14.5) H 09/05/17 04:30 D-Dimer 1689 ng/mLFEU (0-500) H 09/01/17 16:30 Potassium 3.1 mEq/L (3.5-5.1) L 09/05/17 04:30 Chloride 113 mEq/L (98-107) H 09/05/17 04:30 Carbon Dioxide 18 mEq/L (23-29) L 09/05/17 04:30 Glucose 227 mg/dL (70-105) H 09/05/17 04:30 POC Glucose 191 mg/dL (70-99) H 09/05/17 06:06 Calculated Osmolality 305 (280-300) H 09/05/17 04:30 Calcium 8.1 mg/dL (8.6-10.3) L 09/05/17 04:30 Ur Specific [place] > 1.030 (1.010-1.025) H 09/01/17 15:05 Urine Protein 30 mg/dL (Neg-Trace) H 09/01/17 15:05 Urine Glucose (UA) 500 mg/dL (Normal) H 09/01/17 15:05 Urine Ketones Trace mg/dL (Negative) H 09/01/17 15:05 Vancomycin Trough 12 mcg/mL (5-10) H 09/04/17 07:27 - VTE Documentation of Mechanical Device: Intermittent pneumatic compression device Consult Discharge Plan - Plan Referrals: Brenda Her, PAC [Physician Doorperson] - 09/12/17 3:00 pm Saji Parada, DIANA [Advanced Practice Nurse] - (Office will call patient at home with follow up appointment) Trini Roy MD [Primary Care Provider] - (Patient is going to [facility] no PCP appontment needed) Prescriptions: OxyCODONE Immed Rel [Roxicodone 5 MG] 5 mg PO Q6HR PRN 7 Days #28 tablet PRN Reason: Severe Pain
[2017-09-06] MEDS: Piperacillin/Tazobactam 3.375 GM in 0.9 % Sodium Chloride Mini Bag 100 ML IVPB SCH ×2 (00:06→08:35)
[2017-09-06] MEDS: 0.9 % Sodium Chloride w KCl 20 MEQ/1,000 ML MLS IVC SCH ×2 (03:24→11:37)
[2017-09-06 05:22] LABS: Basophils % 0.1 %; Eosinophils # 0.4 K/mcL (0.0-0.6); Eosinophils % 4.5 %; Hematocrit 31.4 % (37.5-50.1); Hemoglobin 10.3 g/dL (12.9-16.9); Immature Granulocytes % 0.2 % (0-4); Lymphocytes # 0.6 K/mcL (0.6-4.6); Lymphocytes % 7.7 %; Mean Corpuscular HGB Conc 32.8 g/dL (31.6-35.5); Mean Corpuscular Hemoglobin 30.8 pg (28.0-33.3); Mean Platelet Volume 10.2 fL (9.4-12.4); Monocytes # 0.5 K/mcL (0.0-1.3); Monocytes % 5.6 %; Neutrophils # 6.6 K/mcL (1.6-8.9); Platelet Count 245 K/mcL (140-400); Red Blood Count 3.34 M/mcL (4.19-5.50); Red Cell Distribution Width 14.9 % (11.5-14.5); Segmented Neutrophils % 81.9 %
[2017-09-06 05:39] LABS: BUN/Creatinine Ratio 16 (6-26); Blood Urea Nitrogen 13 mg/dL (8-23); Carbon Dioxide 20 mEq/L (23-29); Chloride 114 mEq/L (98-107); Glucose 184 mg/dL (70-105); Osmolality,Calculated 305 (280-300); Potassium 2.9 mEq/L (3.5-5.1); Sodium 145 mEq/L (136-145); eGFR For African Americans > 60 (> 60); eGFR For Non-African Americans > 60 (> 60)
[2017-09-06] MEDS: Pantoprazole 40 MG VIAL IVP SCH (08:35)
[2017-09-06] MEDS: Aspirin Enteric Coated 81 MG Tablet PO SCH (08:35)
[2017-09-06] MEDS: Insulin LISPRO 300 UNITS/3 ML VIAL SQ SCH ×3 (08:37→18:15)
[2017-09-06] MEDS ORDERED: Aminoglycoside Consult 1 EACH MC ONE (09:10)
--- NOTE | 2017-09-06 11:06 | Orthopedics Progress Note ---
Date of Encounter: 09/06/17 Time of Encounter: 08:45 - Assessment and Plan (1) Status post lumbar spinal fusion Current Visit: Yes Status: Acute (2) Lumbar stenosis Current Visit: Yes Status: Chronic Qualifiers: Neurogenic claudication status: unspecified Qualified Code(s): M48.061 - Spinal stenosis, lumbar region without neurogenic claudication (3) Lumbar radiculopathy Current Visit: Yes Status: Chronic (4) Spondylolisthesis Current Visit: Yes Status: Chronic Qualifiers: Spinal region: lumbar Qualified Code(s): M43.16 - Spondylolisthesis, lumbar region Subjective Principal diagnosis: Spondylolisthesis, lumbar stenosis, lumbar radiculopathy Interval history: Patient is status post posterior lumbar interbody fusion L3-L5 on 08/29/[address] Alvarado for Spondylolisthesis, lumbar stenosis, lumbar radiculopathy The patient is without complaints. Patient's mental status appears significantly worsened since evaluation yesterday. He is not speaking complete sentences as he was yesterday. He is also wrapping the pulse ox quarter and his finger repetitively and wanting of the cord attempting to hand it to this provider. When discouraged from doing this he begins wrapping the cord more aggressively. Neurovascularly intact with regard to bilateral lower extremities. Fires all upper and lower extremity motor groups. He is noted to have a significantly distended and nontender to palpation abdomen. Patient's mouth is dry and his voice is hoarse. Discussed with nurse who inform this provided that the patient is nothing by mouth for bowel rest. Patient is noted to be on O2 via nasal cannula. Assessment: Status post lumbar fusion - 08/29/17 Sudden onset confusion - 09/01/17, ongoing, intermittent Ileus - diagnosised over the weekend; general surgery has been consulted by hospitalist Plan: Brace present and patient/staff aware to apply with activity. Mobilize with therapy Continue analgesics as needed - would encouraged limited use of opiates secondary to ileus. Discharge planning - on hold secondary to medical complications Radiographs reviewed Defer care of other medical problems to his hospitalist team. Objective Vital signs: Vital Signs Temp Pulse Resp BP Pulse Ox 09/06/17 08:10 98.3 F 88 20 129/75 99 09/06/17 05:16 98.7 F 84 20 127/73 96 09/06/17 03:38 98.7 F 85 20 127/73 96 09/05/17 23:29 97.6 F 80 20 114/74 93 09/05/17 21:40 81 20 121/74 94 09/05/17 19:13 98.4 F 83 20 121/74 94 09/05/17 16:15 98.0 F 82 20 117/75 95 Intake and Output 09/05/17 09/06/17 09/06/17 23:59 07:59 15:59 Intake Total 100 / 100 1100 / 1100 Output Total 325 / 325 350 / 350 Balance -225 / -225 750 / 750 Intake: IV Fluids 100 / 100 1100 / 1100 KCl 20 mEq in 0.9% Sodium 1000 / 1000 Chloride 20 meq In 1,000 ml @ 75 mls/hr IVC .[id number] DORETHA Rx#: [id number] Zosyn 3.375 GM In 0.9 % Sodium 100 / 100 100 / 100 Chloride (Mini-Bag +) 100 ML @ 25 mls/hr IVPB Q8HR [facility] Rx#: [id number] Output: Urine 350 / 350 Catheter 325 / 325 Other: Meal NPO Percent of Meal Consumed 0% Stool Size Moderate Small Stool Consistency liquid liquid Stool Color Brown # Bowel Movement Diapers 1 Weight 87.7 kg Blood Glucose* 163 161 Patient Weight 09/06/17 23:59 Weight 87.7 kg - Labs CBC & BMP: 09/06/17 05:02 09/06/17 05:02 Labs: Abnormal lab results RBC 3.34 M/mcL (4.19-5.50) L 09/06/17 05:02 Hgb 10.3 g/dL (12.9-16.9) L 09/06/17 05:02 Hct 31.4 % (37.5-50.1) L 09/06/17 05:02 RDW 14.9 % (11.5-14.5) H 09/06/17 05:02 D-Dimer 1689 ng/mLFEU (0-500) H 09/01/17 16:30 Potassium 2.9 mEq/L (3.5-5.1) L 09/06/17 05:02 Chloride 114 mEq/L (98-107) H 09/06/17 05:02 Carbon Dioxide 20 mEq/L (23-29) L 09/06/17 05:02 Glucose 184 mg/dL (70-105) H 09/06/17 05:02 POC Glucose 161 mg/dL (70-99) H 09/06/17 05:58 Calculated Osmolality 305 (280-300) H 09/06/17 05:02 Calcium 8.0 mg/dL (8.6-10.3) L 09/06/17 05:02 Ur Specific [place] > 1.030 (1.010-1.025) H 09/01/17 15:05 Urine Protein 30 mg/dL (Neg-Trace) H 09/01/17 15:05 Urine Glucose (UA) 500 mg/dL (Normal) H 09/01/17 15:05 Urine Ketones Trace mg/dL (Negative) H 09/01/17 15:05 Vancomycin Trough 12 mcg/mL (5-10) H 09/04/17 07:27 - VTE Documentation of Mechanical Device: Intermittent pneumatic compression device Consult Discharge Plan - Plan Referrals: Brenda Her PAC [Physician Hat Liner] - 09/12/17 3:00 pm Saji Parada CNP [Advanced Practice Nurse] - (Office will call patient at home with follow up appointment) Trini Roy MD [Primary Care Provider] - (Patient is going to [facility] no PCP appontment needed) Prescriptions: OxyCODONE Immed Rel [Roxicodone 5 MG] 5 mg PO Q6HR PRN 7 Days #28 tablet PRN Reason: Severe Pain
[2017-09-06] MEDS: Acetaminophen 325 MG TABLET PO PRN ×2 (11:57→22:46)
[2017-09-06] MEDS ORDERED: Potassium Chloride 40 MEQ, Lidocaine 1% 2 ML in D5% in Water 500 ML IVPB ONE (13:50)
[2017-09-06] MEDS: diazePAM 5 MG TABLET PO PRN (14:32)
[2017-09-06] MEDS ORDERED: Ringers Solution, Lactated 1,000 ML IV SCH (15:15)
--- NOTE | 2017-09-06 15:21 | Event Note ---
Date of Encounter: 09/06/17 Time of Encounter: 15:19 s/w Dr. Baig re: [facility]. He states he will examine patient today and decide whether safe to progress to liquids vs continue bowel rest and consult GS vs GI. Appreciate his input and advice.
[2017-09-06] MEDS ORDERED: Ringers Solution, Lactated 1,000 ML ONE (18:05)
[2017-09-06] MEDS: Simethicone 80 MG TAB.CHEW PO SCH ×3 (18:09→22:47)
--- NOTE | 2017-09-06 18:46 | Internal Med Progress Note ---
Date of Encounter: 09/06/17 Time of Encounter: 17:47 - Assessment and plan (1) Ileus, postoperative Current Visit: Yes Status: Acute Assessment and plan: Still with abdominal distension and TTP. No nausea or vomiting. Will defer NG tube at this time. Some loose stools per nursing staff. Will monitor closely. Continue IV PPI. Keep NPO. Continue to hold all opioids. Consider chewing gum. Discussed case with orthopedics Brenda Her, general surgeon Dr. Mcneil, and GI Dr. Trammell. Fish Hatchery Specialist consulted today. GI consulted today; appreciate input. Obtain KUB in AM. Schedule simethicone. Continue to monitor closely. (2) Status post lumbar spinal fusion Current Visit: Yes Status: Acute Assessment and plan: Management per primary. (3) Lumbar radiculitis Current Visit: Yes Status: Chronic Assessment and plan: Management per primary. (4) Lumbar radiculopathy Current Visit: Yes Status: Chronic Assessment and plan: Management per primary. (5) Lumbar stenosis Current Visit: Yes Status: Chronic Assessment and plan: Management per primary. Qualifiers: Neurogenic claudication status: unspecified Qualified Code(s): M48.061 - Spinal stenosis, lumbar region without neurogenic claudication (6) Spondylolisthesis Current Visit: Yes Status: Chronic Assessment and plan: Management per primary. Qualifiers: Spinal region: lumbar Qualified Code(s): M43.16 - Spondylolisthesis, lumbar region (7) Leukocytosis Current Visit: Yes Status: Resolved Assessment and plan: Resolved. Discontinue IV vancomycin and IV zosyn today. Recheck CBC in AM. Qualifiers: Leukocytosis type: unspecified Qualified Code(s): D72.829 - Elevated white blood cell count, unspecified (8) Sepsis Current Visit: Yes Status: Resolved Assessment and plan: Resolved. Discontinue IV vancomycin and IV zosyn today. Qualifiers: Sepsis type: sepsis due to unspecified organism Qualified Code(s): A41.9 - Sepsis, unspecified organism (9) Hyponatremia Current Visit: Yes Status: Resolved Assessment and plan: Resolved. On IVF. Recheck BMP in AM. (10) Hypokalemia Current Visit: Yes Status: Acute Assessment and plan: Give 40 mEq IV KCl. Recheck BMP and magnesium in AM. (11) Atrial fibrillation with RVR Current Visit: Yes Status: Resolved Assessment and plan: Resolved. Continue telemetry. (12) DVT prophylaxis Current Visit: Yes Status: Acute Assessment and plan: Hold anticoagulation due to bilateral flank ecchymoses. Continue SCDs. - Time Spent With Patient Total time spent is greater than 50% in coordination of care (as documented) at patient's floor/unit and/or counseling patient: less than 15 minutes - Subjective Interval history: Patient had no acute events overnight. Nursing staff reports bilateral flank ecchymoses/rash this AM. Nursing staff also reports some confusion throughout the day. Patient still has significant distension and moderate TTP of abdomen. He does not voice any concerns, but he is difficult to understand. He is alert and oriented x 3 today. He denies chest pain, SOB, nausea, vomiting, fever, or chills. I spoke with pharmacist today, who stated patient still receiving significant benzodiazepines for "agitation." I do not think he is agitated, and these medications may be contributing to his delirium. I have already discontinued haldol and all opiates. Will discontinue diazepam today and see if this helps with delirium. I personally spoke with orthopedics Brenda Her and general surgeon Dr. Mcneil today. Dr. Mcneil suggested hematomas may be a surgical complication and can be related to sympathetic nerve irritation, which could be causing ileus. I informed Brenda of this, who spoke with orthopedic surgeon, who thinks "this is a stretch." Dr. Mcneil states that he does not have anything else to offer for post-surgical ileus. I spoke with GI Dr. Trammell today, who agrees to consult and see patient in the AM in regards to the post-operative ileus. He suggested getting KUB in AM and adding simethicone scheduled. - Constitutional Vitals: Temp Pulse Resp BP Pulse Ox 98.6 F 76 22 132/81 99 09/06/17 15:33 09/06/17 15:33 09/06/17 15:33 09/06/17 15:33 09/06/17 15:33 General appearance: Present: cooperative, A&O X 3, pleasant, no acute distress, obese, answers questions appropriately (but difficult to understand) - Respiratory Respiratory exam: Present: CTAB. Absent: accessory muscle use, rales, rhonchi, wheezes Additional comments: Normal WOB - Cardiovascular Cardiovascular exam: Present: RRR, +S1, +S2. Absent: diastolic murmur, gallop, rubs, systolic murmur Additional comments: No BLE edema - GI/Abdominal GI/Abdominal exam: Present: distended, hypoactive bowel sounds, soft, tenderness. Absent: guarding, hepatomegaly, mass, rebound, splenomegaly - Psychiatric Psychiatric exam: Present: normal affect, normal mood. Absent: agitated, anxious, depressed - Skin Skin exam: Present: dry, intact, warm. Absent: cyanosis Additional comments: Bilateral flank ecchymoses Internal Medicine: Result - Labs CBC & Chem 7: 09/06/17 05:02 09/06/17 05:02 Labs: Short CBC 09/06/17 Range/Units 05:02 WBC 8.0 (4.3-11.1) K/mcL Hgb 10.3 L (12.9-16.9) g/dL Hct 31.4 L (37.5-50.1) % Plt Count 245 (140-400) K/mcL Neutrophils # 6.6 (1.6-8.9) K/mcL BMP 09/06/17 05:02 Sodium 145 Potassium 2.9 L Chloride 114 H Carbon Dioxide 20 L BUN 13 Creatinine 0.81 Glucose 184 H Calcium 8.0 L - ABG Interpretation ABG results: PT/INR, D-dimer D-Dimer 1689 ng/mLFEU (0-500) H 09/01/17 16:30 - VTE Documentation of Mechanical Device: Intermittent pneumatic compression device Consult Discharge Plan - Plan Referrals: Brenda Her PAC [Physician Retail Greeting Card Merchandiser] - 09/12/17 3:00 pm Saji Parada CNP [Advanced Practice Nurse] - (Office will call patient at home with follow up appointment) Trini Roy MD [Primary Care Provider] - (Patient is going to [facility] no PCP appontment needed) Prescriptions: OxyCODONE Immed Rel [Roxicodone 5 MG] 5 mg PO Q6HR PRN 7 Days #28 tablet PRN Reason: Severe Pain
[2017-09-07] MEDS: Insulin LISPRO 300 UNITS/3 ML VIAL SQ SCH ×4 (04:06→18:22)
[2017-09-07] MEDS: Simethicone 80 MG TAB.CHEW PO SCH ×4 (04:07→19:52)
[2017-09-07 06:07] LABS: Basophils % 0.3 %; Eosinophils # 0.4 K/mcL (0.0-0.6); Eosinophils % 4.8 %; Hematocrit 33.2 % (37.5-50.1); Hemoglobin 11.1 g/dL (12.9-16.9); Immature Granulocytes % 0.8 % (0-4); Lymphocytes # 0.7 K/mcL (0.6-4.6); Lymphocytes % 8.6 %; Mean Corpuscular HGB Conc 33.4 g/dL (31.6-35.5); Mean Corpuscular Hemoglobin 31.4 pg (28.0-33.3); Mean Corpuscular Volume 94.1 fL (83.0-100.0); Mean Platelet Volume 10.1 fL (9.4-12.4); Monocytes # 0.5 K/mcL (0.0-1.3); Neutrophils # 6.3 K/mcL (1.6-8.9); Platelet Count 283 K/mcL (140-400); Red Blood Count 3.53 M/mcL (4.19-5.50); Red Cell Distribution Width 14.8 % (11.5-14.5); Segmented Neutrophils % 79.5 %
[2017-09-07] MEDS: Ringers Solution, Lactated 1,000 ML IV SCH (06:15)
[2017-09-07 06:22] LABS: BUN/Creatinine Ratio 13 (6-26); Blood Urea Nitrogen 9 mg/dL (8-23); Calcium 8.2 mg/dL (8.6-10.3); Carbon Dioxide 21 mEq/L (23-29); Chloride 112 mEq/L (98-107); Glucose 164 mg/dL (70-105); Osmolality,Calculated 300 (280-300); Potassium 2.7 mEq/L (3.5-5.1); Sodium 144 mEq/L (136-145); eGFR For African Americans > 60 (> 60); eGFR For Non-African Americans > 60 (> 60)
[2017-09-07] MEDS ORDERED: Potassium Chloride 40 MEQ, Lidocaine 1% 2 ML in D5% in Water 500 ML IVPB ONE (07:36)
[2017-09-07] MEDS: Aspirin Enteric Coated 81 MG Tablet PO SCH (08:30)
[2017-09-07] MEDS: Pantoprazole 40 MG VIAL IVP SCH (08:30)
--- NOTE | 2017-09-07 11:16 | Orthopedics Progress Note ---
Date of Encounter: 09/07/17 Time of Encounter: 08:30 - Assessment and Plan (1) Status post lumbar spinal fusion Current Visit: Yes Status: Acute (2) Lumbar stenosis Current Visit: Yes Status: Chronic Qualifiers: Neurogenic claudication status: unspecified Qualified Code(s): M48.061 - Spinal stenosis, lumbar region without neurogenic claudication (3) Lumbar radiculopathy Current Visit: Yes Status: Chronic (4) Spondylolisthesis Current Visit: Yes Status: Chronic Qualifiers: Spinal region: lumbar Qualified Code(s): M43.16 - Spondylolisthesis, lumbar region Subjective Principal diagnosis: Spondylolisthesis, lumbar stenosis, lumbar radiculopathy Interval history: Patient is status post posterior lumbar interbody fusion L3-L5 on 08/29/[address] Alvarado for Spondylolisthesis, lumbar stenosis, lumbar radiculopathy The patient is without complaints. Patient's mental status appears stable since evaluation yesterday. He is very somnolent today and not easily aroused. He is not speaking complete sentences as he was on 09/05. Neurovascularly intact with regard to bilateral lower extremities. Fires all upper and lower extremity motor groups. He is noted to have a significantly distended and nontender to palpation abdomen. Patient's mouth is dry. Discussed with nurse who is asking about nutrition consult. Patient is noted to be on room air with adequate oxygen saturation. Assessment: Status post lumbar fusion - 08/29/17 Sudden onset confusion - 09/01/17, ongoing, intermittent Ileus - diagnosed over the weekend; Dr. Baig has consulted gastroenterology for further evaluation Plan: Brace present and patient/staff aware to apply with activity. Mobilize with therapy Continue analgesics as needed - would encouraged limited use of opiates secondary to ileus. Discharge planning - on hold secondary to medical complications Radiographs reviewed Defer care of other medical problems to his hospitalist team. Dr. Alvarado would like for patient to continue on NPO diet. We will order some pancreatic and liver enzymes to evaluate those as patient has somewhat tympanic abdomen at this point. GIs input is greatly appreciated. We will look forward to their recommendations. Dr. Alvarado would like to recommend consideration of an NG versus distal decompression as this is now approximately day number 6 patient's ileus and nothing by mouth diet. Objective Vital signs: Vital Signs Temp Pulse Resp BP Pulse Ox 05/31/18 07:13 98.5 F 74 18 145/78 94 09/07/17 05:40 97.8 F 74 20 138/84 98 09/06/17 23:18 98.8 F 80 22 130/83 100 09/06/17 19:07 98.8 F 84 22 134/79 99 09/06/17 15:33 98.6 F 76 22 132/81 99 09/06/17 12:04 97.8 F 76 20 105/57 97 Intake and Output 09/06/17 09/07/17 09/07/17 23:59 07:59 15:59 Intake Total 1000 / 1000 Output Total 450 / 450 150 / 150 Balance -450 / -450 850 / 850 Intake: IV Fluids 1000 / 1000 Lactated Ringers 1,000 ML @ 75 1000 / 1000 mls/hr IV .[id number] DORETHA Rx#: [id number] Output: Urine 150 / 150 Catheter 450 / 450 Urethral (Bass) 450 / 450 Other: Stool Size Moderate Stool Consistency loose Stool Color Brown # Urine Diapers 1 Weight 86.4 kg Blood Glucose* 148 133 Patient Weight 09/07/17 23:59 Weight 86.4 kg - Labs CBC & BMP: 09/07/17 05:49 09/07/17 05:49 Labs: Abnormal lab results RBC 3.53 M/mcL (4.19-5.50) L 09/07/17 05:49 Hgb 11.1 g/dL (12.9-16.9) L 09/07/17 05:49 Hct 33.2 % (37.5-50.1) L 09/07/17 05:49 RDW 14.8 % (11.5-14.5) H 09/07/17 05:49 D-Dimer 1689 ng/mLFEU (0-500) H 09/01/17 16:30 Potassium 2.7 mEq/L (3.5-5.1) L 09/07/17 05:49 Chloride 112 mEq/L (98-107) H 09/07/17 05:49 Carbon Dioxide 21 mEq/L (23-29) L 09/07/17 05:49 Glucose 164 mg/dL (70-105) H 09/07/17 05:49 POC Glucose 133 mg/dL (70-99) H 09/07/17 05:44 Calcium 8.2 mg/dL (8.6-10.3) L 09/07/17 05:49 Ur Specific Metcalfe > 1.030 (1.010-1.025) H 09/01/17 15:05 Urine Protein 30 mg/dL (Neg-Trace) H 09/01/17 15:05 Urine Glucose (UA) 500 mg/dL (Normal) H 09/01/17 15:05 Urine Ketones Trace mg/dL (Negative) H 09/01/17 15:05 - VTE Documentation of Mechanical Device: Intermittent pneumatic compression device Consult Discharge Plan - Plan Referrals: Brenda Her PAC [Physician Core Winder] - 09/12/17 3:00 pm Saji Parada CNP [Advanced Practice Nurse] - (Office will call patient at home with follow up appointment) Trini Roy MD [Primary Care Provider] - (Patient is going to [facility] no PCP appontment needed) Prescriptions: OxyCODONE Immed Rel [Roxicodone 5 MG] 5 mg PO Q6HR PRN 7 Days #28 tablet PRN Reason: Severe Pain
[2017-09-07 12:25] LABS: BUN/Creatinine Ratio 13 (6-26); Blood Urea Nitrogen 10 mg/dL (8-23); Calcium 8.4 mg/dL (8.6-10.3); Carbon Dioxide 20 mEq/L (23-29); Chloride 111 mEq/L (98-107); Glucose 192 mg/dL (70-105); Osmolality,Calculated 302 (280-300); Potassium 2.9 mEq/L (3.5-5.1); Sodium 144 mEq/L (136-145); eGFR For African Americans > 60 (> 60); eGFR For Non-African Americans > 60 (> 60)
--- NOTE | 2017-09-07 12:30 | Gastroenterology Consult Note ---
<Jerson Oliver - Last Filed: 09/07/17 12:28> Date of Encounter: 09/07/17 Time of Encounter: 11:20 - Assessment and plan (1) Ileus, postoperative Current Visit: Yes Status: Acute Assessment and plan: Recommend NG tube insertion for decompression. Follow daily KUB. Keep pt NPO for now. Will discuss TPN with Dr. Trammell as patient has remained NPO for about 6 days. (2) Status post lumbar spinal fusion Current Visit: Yes Status: Acute - Time Spent With Patient Total time spent is greater than 50% in coordination of care (as documented) at patient's floor/unit and/or counseling patient: GI History of Present Illness - Data of Consult Patient: new to practice Consult date: 09/07/17 Requesting Physician: Candelario Alvarado Jr MD - Consult Narrative Reason for consult: Post-op ileus History of present illness: Mr. Cr is a 82 year old male with PMHx of GERD, DM, thyroid disease, and lumbar stenosis who presented for lumbar spinal fusion with Dr. Caro. Patient developed abdominal tenderness and distention. CT A/P showed colonic ileus without evidence of acute bowel wall thickening, inflammation, or evidence of bowel obstruction. We were consulted to evaluate the ileus. He is NPO and having liquid BMs. Procedures: Colonoscopy 03/12/2012 Dr. Waldron: 4-8mm tubular adenoma in sigmoid colon, hepatic flexure, transverse colon, descending colon, and ascending colon, diverticulosis, internal hemorrhoids. EGD 03/12/2012 Dr. Waldron: Gastritis, reflux esophagitis. NSAIDs: ASA Anticoagulation: None Past Med Surg Social Fam HX - Past Medical History Medical history: diabetes, GERD Additional medical history: Back pain, Sciatic nerve pain, Psychiatric history: no psych history - Past Surgical History Surgical History: orthopedic, other (Status post lumbar spinal fusion) Additional surgical history: Hand surgery - Social History Smoking Status: Never smoker Smokeless Tobacco Status: No Alcohol use: rarely Drug use: none - Family History Father Race: Family Member Ethnicity: Non- Living Status: Cause of : NM Hx Family Cardiac Disorders: Yes ("Heart problems" NM) Brother Race: Family Member Ethnicity: Non- Living Status: Still Living Hx Family Medical Disorders: No Sister Race: Family Member Ethnicity: Non- Living Status: Still Living Hx Family Musculoskeletal Disorders: Yes (Arthritis) - Gastrointestinal Gastrointestinal: Present: as per HPI - Constitutional Constitutional: as per HPI - EENT Eyes: as per HPI Ears: Present: as per HPI Nose, mouth and throat: Present: as per HPI - Cardiovascular Cardiovascular ROS: Present: as per HPI - Respiratory Respiratory IM: Present: as per HPI - Genitourinary Genitourinary: Absent: change in color, Urinary frequency - Neurological ROS Neurological GI: Present: as per HPI - Hematologic/Lymphatic Hematologic/Lymphatic pediatric: Present: as per HPI - Musculoskeletal Musculoskeletal ROS GI: Present: as per HPI - Integumentary Integumentary GI: Present: as per HPI - Psychiatric ROS Psychiatric GI: Present: as per HPI - Endocrine Endocrine IM: Present: as per HPI - Constitutional Vitals: Temp Pulse Resp BP Pulse Ox 97.3 F L 69 18 124/76 98 09/07/17 11:25 09/07/17 11:25 09/07/17 11:25 09/07/17 11:25 09/07/17 11:25 General appearance: Present: cooperative, A&O X 3, no acute distress, answers questions appropriately (difficult to understand) - Head Head exam: Present: atraumatic, normocephalic - Eye Eye exam: Present: normal appearance, sclera anicteric - ENT ENT exam: Present: mucous membranes dry - Neck Neck exam general surgery: Present: normal inspection, trachea midline - Respiratory Respiratory exam: Present: decreased breath sounds, CTAB. Absent: rales, rhonchi - Cardiovascular Cardiovascular exam: Present: RRR, +S1, +S2 - GI/Abdominal GI/Abdominal exam: Present: distended, firm, no peritoneal signs. Absent: guarding, tenderness Additional comments: tympanic - Rectal Rectal exam: Present: deferred - Extremities Exam Extremities exam: Present: warm - Neurological Exam Neurological exam: Present: no focal deficits - Psychiatric Psychiatric exam: Present: normal affect, normal mood - Skin Skin exam: Present: dry, intact, normal color, warm Results - Labs CBC & Chem 7: 09/07/17 05:49 09/07/17 11:29 Labs: Last Result Calcium 8.4 mg/dL (8.6-10.3) L 09/07/17 11:29 Entire Visit Hgb 11.1 g/dL (12.9-16.9) L 09/07/17 05:49 Hct 33.2 % (37.5-50.1) L 09/07/17 05:49 Total Bilirubin 0.8 mg/dL (0.3-1.0) 09/01/17 14:26 AST 17 Units/L (13-39) 09/01/17 14:26 ALT 19 Units/L (7-52) 09/01/17 14:26 - ABG ABG results: PT/INR, D-dimer D-Dimer 1689 ng/mLFEU (0-500) H 09/01/17 16:30 Consult Discharge Plan - Plan Referrals: Brenda Her PAC [Physician Regional Telecommunications Specialist] - 09/12/17 3:00 pm Saji Parada, QUALITY CONTROL MICROBIOLOGY SUPERVISOR [Advanced Practice Nurse] - (Office will call patient at home with follow up appointment) Trini Roy MD [Primary Care Provider] - (Patient is going to [facility] no PCP appontment needed) Prescriptions: OxyCODONE Immed Rel [Roxicodone 5 MG] 5 mg PO Q6HR PRN 7 Days #28 tablet PRN Reason: Severe Pain <Greg Trammell - Last Filed: 09/08/17 04:13> Date of Encounter: 09/07/17 - Time Spent With Patient Total time spent is greater than 50% in coordination of care (as documented) at patient's floor/unit and/or counseling patient: GI History of Present Illness - Data of Consult Requesting Physician: Candelario Alvarado Jr MD - Consult Narrative History of present illness: Mr. Cr is a 82 year old male - Constitutional Vitals: Temp Pulse Resp BP Pulse Ox 97.8 F 79 18 170/91 96 09/08/17 04:03 09/08/17 04:03 09/08/17 04:03 09/08/17 04:03 09/08/17 04:03 Results - Labs CBC & Chem 7: 09/08/17 03:30 09/07/17 11:29 Labs: Last Result Calcium 8.4 mg/dL (8.6-10.3) L 09/07/17 11:29 Entire Visit Hgb 10.5 g/dL (12.9-16.9) L 09/08/17 03:30 Hct 31.2 % (37.5-50.1) L 09/08/17 03:30 Total Bilirubin 0.6 mg/dL (0.3-1.0) 09/07/17 11:29 AST 16 Units/L (13-39) 09/07/17 11:29 ALT 14 Units/L (7-52) 09/07/17 11:29 Amylase 25 Units/L (29-103) L 09/07/17 11:29 Lipase 16 Units/L (11-82) 09/07/17 11:29 - ABG ABG results: PT/INR, D-dimer D-Dimer 1689 ng/mLFEU (0-500) H 09/01/17 16:30 - Impressions Impressions KUB X-Ray 09/07/17 07:00 IMPRESSION: Findings compatible with a large bowel ileus, which is slightly worse from the previous CT. 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 Recommend holding all pain medicines correcting electrolytes potassium and magnesium IV fluids and not with nasogastric low intermittent suction and rectal tube as well as simethicone 125 mg 4 times a day and follow the patient with serial daily KUB x-rays until the problems resolved would hold off neostigmine unless he remains refractory. Peripheral hyperalimentation. This should help resolve the problem and further recommendation will be made as we go along. Thank you for this consultation I have personally performed a face to face evaluation on this patient. I have reviewed and agree with the care plan. History and Exam by me shows:
[2017-09-07 13:10] LABS: Alanine Aminotransferase 14 Units/L (7-52); Albumin 3.1 g/dL (3.5-5.7); Albumin/Globulin Ratio 1.1 (1.1-2.2); Alkaline Phosphatase 68 Units/L (34-104); Amylase 25 Units/L (29-103); Aspartate Amino Transferase 16 Units/L (13-39); Bilirubin,Direct 0.2 mg/dL (0.0-0.2); Bilirubin,Indirect 0.4 mg/dL (0.0-1.2); Bilirubin,Total 0.6 mg/dL (0.3-1.0); Globulin 2.8 g/dL (2.4-3.5); Lipase 16 Units/L (11-82); Total Protein 5.9 g/dL (6.4-8.9)
--- NOTE | 2017-09-07 17:13 | Internal Med Progress Note ---
Date of Encounter: 09/07/17 Time of Encounter: 17:11 - Assessment and plan (1) Lumbar radiculitis Current Visit: Yes Status: Chronic Assessment and plan: Management per primary. (2) Status post lumbar spinal fusion Current Visit: Yes Status: Acute Assessment and plan: Management per primary. (3) Lumbar radiculopathy Current Visit: Yes Status: Chronic Assessment and plan: Management per primary. (4) Lumbar stenosis Current Visit: Yes Status: Chronic Assessment and plan: Management per primary. Qualifiers: Neurogenic claudication status: unspecified Qualified Code(s): M48.061 - Spinal stenosis, lumbar region without neurogenic claudication (5) Spondylolisthesis Current Visit: Yes Status: Chronic Assessment and plan: Management per primary. Qualifiers: Spinal region: lumbar Qualified Code(s): M43.16 - Spondylolisthesis, lumbar region (6) Leukocytosis Current Visit: Yes Status: Resolved Assessment and plan: Resolved. Recheck CBC in AM. Qualifiers: Leukocytosis type: unspecified Qualified Code(s): D72.829 - Elevated white blood cell count, unspecified (7) Sepsis Current Visit: Yes Status: Resolved Assessment and plan: Resolved. Qualifiers: Sepsis type: sepsis due to unspecified organism Qualified Code(s): A41.9 - Sepsis, unspecified organism (8) Hyponatremia Current Visit: Yes Status: Resolved Assessment and plan: Resolved. On IVF. Recheck BMP in AM. (9) Hypokalemia Current Visit: Yes Status: Acute Assessment and plan: Given 40 mEq PO KCl and 1 gram IV magnesium sulfate in AM. Give 40 mEq IV KCl. Recheck BMP in AM. (10) Atrial fibrillation with RVR Current Visit: Yes Status: Resolved Assessment and plan: Resolved. Continue telemetry. (11) Ileus, postoperative Current Visit: Yes Status: Acute Assessment and plan: Still with abdominal distension and TTP. No nausea or vomiting. GI consulted; appreciate input. NG tube placed today. Will monitor closely. Continue IV PPI and scheduled PO simethicone. Keep NPO. Continue to hold all opioids. Consider chewing gum. Two Way Radio Technician consulted today; start TPN after discussion with GI. Continue to replete electrolytes. Continue to monitor closely. (12) DVT prophylaxis Current Visit: Yes Status: Acute Assessment and plan: Hold anticoagulation due to bilateral flank ecchymoses. Continue SCDs. - Time Spent With Patient Total time spent is greater than 50% in coordination of care (as documented) at patient's floor/unit and/or counseling patient: less than 15 minutes - Subjective Interval history: Patient had no acute events overnight. Patient looks less agitated today. He is conversing appropriately, although difficult to understand. NG tube has been placed, and he is tolerating it well so far. I spoke with sand cutter operator today , who suggested starting TPN; I agree with starting TPN. I will speak with GI in regards to this and get it started. Patient denies chest pain, SOB, fever, chills, nausea, vomiting, or abdominal pain. He has no complaints at this time. - Constitutional Vitals: Temp Pulse Resp BP Pulse Ox 97.8 F 70 18 140/82 98 09/07/17 16:26 09/07/17 16:26 09/07/17 16:26 09/07/17 16:26 09/07/17 16:26 General appearance: Present: cooperative, A&O X 3, pleasant, no acute distress, obese, answers questions appropriately (but difficult to understand) - Respiratory Respiratory exam: Present: CTAB. Absent: accessory muscle use, rales, rhonchi, wheezes Additional comments: Normal WOB - Cardiovascular Cardiovascular exam: Present: RRR, +S1, +S2. Absent: diastolic murmur, gallop, rubs, systolic murmur Additional comments: No BLE edema - GI/Abdominal GI/Abdominal exam: Present: normal bowel sounds, soft. Absent: distended, hepatomegaly, mass, splenomegaly, tenderness - Psychiatric Psychiatric exam: Present: normal affect, normal mood. Absent: agitated, anxious, depressed - Skin Skin exam: Present: dry, intact, warm. Absent: cyanosis, rash Additional comments: Bilateral flank ecchymoses Internal Medicine: Result - Labs CBC & Chem 7: 09/07/17 05:49 09/07/17 11:29 Labs: Short CBC 09/07/17 Range/Units 05:49 WBC 7.9 (4.3-11.1) K/mcL Hgb 11.1 L (12.9-16.9) g/dL Hct 33.2 L (37.5-50.1) % Plt Count 283 (140-400) K/mcL Neutrophils # 6.3 (1.6-8.9) K/mcL BMP 09/07/17 09/07/17 05:49 11:29 Sodium 144 144 Potassium 2.7 L 2.9 L Chloride 112 H 111 H Carbon Dioxide 21 L 20 L BUN 9 10 Creatinine 0.70 0.75 Glucose 164 H 192 H Calcium 8.2 L 8.4 L Liver Function 09/07/17 Range/Units 11:29 Total Bilirubin 0.6 (0.3-1.0) mg/dL Direct Bilirubin 0.2 (0.0-0.2) mg/dL AST 16 (13-39) Units/L ALT 14 (7-52) Units/L Alkaline Phosphatase 68 (34-104) Units/L Albumin 3.1 L (3.5-5.7) g/dL - ABG Interpretation ABG results: PT/INR, D-dimer D-Dimer 1689 ng/mLFEU (0-500) H 09/01/17 16:30 - Impressions Impressions KUB X-Ray 09/07/17 07:00 IMPRESSION: Findings compatible with a large bowel ileus, which is slightly worse from the previous CT. D/ / Linus Garrido MD / Linus Garrido MD Interpreting Provider: Linus Garrido MD - VTE Documentation of Mechanical Device: Intermittent pneumatic compression device Consult Discharge Plan - Plan Referrals: Brenda Her PAC [Physician Certified Medical Aide] - 09/12/17 3:00 pm Saji Parada CNP [Advanced Practice Nurse] - (Office will call patient at home with follow up appointment) Trini Roy MD [Primary Care Provider] - (Patient is going to [facility] no PCP appontment needed) Prescriptions: OxyCODONE Immed Rel [Roxicodone 5 MG] 5 mg PO Q6HR PRN 7 Days #28 tablet PRN Reason: Severe Pain
[2017-09-08] MEDS: Ringers Solution, Lactated 1,000 ML IV SCH ×2 (03:32→14:20)
[2017-09-08] MEDS: Insulin LISPRO 300 UNITS/3 ML VIAL SQ SCH ×4 (03:33→20:53)
[2017-09-08] MEDS: Simethicone 80 MG TAB.CHEW PO SCH ×3 (03:34→08:09)
[2017-09-08 04:03] LABS: Basophils % 0.1 %; Eosinophils # 0.5 K/mcL (0.0-0.6); Hematocrit 31.2 % (37.5-50.1); Hemoglobin 10.5 g/dL (12.9-16.9); Immature Granulocytes % 0.7 % (0-4); Lymphocytes # 0.8 K/mcL (0.6-4.6); Lymphocytes % 9.2 %; Mean Corpuscular HGB Conc 33.7 g/dL (31.6-35.5); Mean Corpuscular Hemoglobin 31.2 pg (28.0-33.3); Mean Corpuscular Volume 92.6 fL (83.0-100.0); Mean Platelet Volume 10.2 fL (9.4-12.4); Monocytes # 0.5 K/mcL (0.0-1.3); Monocytes % 5.7 %; Neutrophils # 7.2 K/mcL (1.6-8.9); Platelet Count 294 K/mcL (140-400); Red Blood Count 3.37 M/mcL (4.19-5.50); Red Cell Distribution Width 14.7 % (11.5-14.5); Segmented Neutrophils % 79.3 %
[2017-09-08 04:48] LABS: Blood Urea Nitrogen 10 mg/dL (8-23); Carbon Dioxide 19 mEq/L (23-29); Chloride 112 mEq/L (98-107); Potassium 2.5 mEq/L (3.5-5.1); Sodium 144 mEq/L (136-145)
[2017-09-08 04:49] LABS: BUN/Creatinine Ratio 15 (6-26); Glucose 164 mg/dL (70-105); Osmolality,Calculated 301 (280-300); Phosphorous 2.7 mg/dL (2.7-4.5); eGFR For African Americans > 60 (> 60); eGFR For Non-African Americans > 60 (> 60)
[2017-09-08] MEDS ORDERED: Potassium Chloride 40 MEQ, Lidocaine 1% 2 ML in D5% in Water 500 ML IVPB ONE ×2 (05:26→14:00)
[2017-09-08] MEDS: Aspirin Enteric Coated 81 MG Tablet PO SCH (08:07)
[2017-09-08] MEDS: Pantoprazole 40 MG VIAL IVP SCH (08:23)
--- NOTE | 2017-09-08 09:35 | Orthopedics Progress Note ---
Date of Encounter: 09/08/17 Time of Encounter: 07:45 - Assessment and Plan (1) Status post lumbar spinal fusion Current Visit: Yes Status: Acute (2) Lumbar stenosis Current Visit: Yes Status: Chronic Qualifiers: Neurogenic claudication status: unspecified Qualified Code(s): M48.061 - Spinal stenosis, lumbar region without neurogenic claudication (3) Lumbar radiculopathy Current Visit: Yes Status: Chronic (4) Spondylolisthesis Current Visit: Yes Status: Chronic Qualifiers: Spinal region: lumbar Qualified Code(s): M43.16 - Spondylolisthesis, lumbar region Subjective Principal diagnosis: Spondylolisthesis, lumbar stenosis, lumbar radiculopathy Interval history: Patient is status post posterior lumbar interbody fusion L3-L5 on 08/29/[address] Alvarado for Spondylolisthesis, lumbar stenosis, lumbar radiculopathy The patient is without complaints. Patient's mental status appears improved since evaluation yesterday. He is somnolent today, however, is easily aroused. He is speaking complete sentences though his voice continues to be mumbled and he is difficult to understand. Neurovascularly intact with regard to bilateral lower extremities. Fires all upper and lower extremity motor groups. His abdomen is less distended today and is nontender to palpation. NG tube in place. Patient is noted to be on room air with adequate oxygen saturation. Assessment: Status post lumbar fusion - 08/29/17 Sudden onset confusion - 09/01/17, ongoing, intermittent Ileus - diagnosed approximately one week postop; gastroenterology following, NG tube in place, nurse informs this provider at approximately 250 mL of clear liquid was removed. Patient has been able to suck on ice chips periodically which is helped with oral hygiene and hydration. Plan: Brace present and patient/staff aware to apply with activity. Mobilize with therapy Continue analgesics as needed - would encouraged limited use of opiates secondary to ileus. Discharge planning - on hold secondary to medical complications Radiographs reviewed Defer care of other medical problems to his hospitalist team. Pancreatic and liver enzymes reviewed and found to be unremarkable given patient 's current medical condition and age. GIs input is greatly appreciated. Dr. Alvarado would like to transfer patient at this point as he is stable from a spine perspective to hospitalist service for continuation of his medical care. Spoke with Dr. Baig who is on board with this. Nurse is also asking about switching all medications to [facility] administration. Service Dr. Baig about this and will speak with pharmacy about getting these taken care of. Objective Vital signs: Vital Signs Temp Pulse Resp BP Pulse Ox 09/08/17 07:16 98.4 F 79 18 122/89 97 09/08/17 04:03 97.8 F 79 18 170/91 96 09/07/17 23:29 99.1 F 78 18 160/83 96 09/07/17 18:54 100.0 F H 76 18 149/83 98 09/07/17 16:26 97.8 F 70 18 140/82 98 09/07/17 11:25 97.3 F L 69 18 124/76 98 Intake and Output 09/07/17 09/08/17 09/08/17 23:59 07:59 15:59 Intake Total 1000 / 1000 Output Total 300 / 300 1045 / 1045 Balance 700 / 700 -1045 / -1045 Intake: IV Fluids 1000 / 1000 Lactated Ringers 1,000 ML @ 75 1000 / 1000 mls/hr IV .[id number] [facility] Rx#: [id number] Output: Stool 150 / 150 Catheter 300 / 300 675 / 675 Urethral (Bass) 425 / 425 Gastric Drainage 220 / 220 Other: Meal NPO Percent of Meal Consumed 0% Stool Size Moderate Stool Consistency liquid liquid # Bowel Movement Diapers 1 1 Weight 86.7 kg Blood Glucose* 103 150 Patient Weight 09/08/17 23:59 Weight 86.7 kg - Labs CBC & BMP: 09/08/17 03:30 09/08/17 03:30 Labs: Abnormal lab results RBC 3.37 M/mcL (4.19-5.50) L 09/08/17 03:30 Hgb 10.5 g/dL (12.9-16.9) L 09/08/17 03:30 Hct 31.2 % (37.5-50.1) L 09/08/17 03:30 RDW 14.7 % (11.5-14.5) H 09/08/17 03:30 D-Dimer 1689 ng/mLFEU (0-500) H 09/01/17 16:30 Potassium 2.5 mEq/L (3.5-5.1) L* 09/08/17 03:30 Chloride 112 mEq/L (98-107) H 09/08/17 03:30 Carbon Dioxide 19 mEq/L (23-29) L 09/08/17 03:30 Creatinine 0.68 mg/dL (0.70-1.30) L 09/08/17 03:30 Glucose 164 mg/dL (70-105) H 09/08/17 03:30 POC Glucose 150 mg/dL (70-99) H 09/08/17 05:33 Calculated Osmolality 301 (280-300) H 09/08/17 03:30 Calcium 8.0 mg/dL (8.6-10.3) L 09/08/17 03:30 Serum Total Protein 5.9 g/dL (6.4-8.9) L 09/07/17 11:29 Albumin 3.1 g/dL (3.5-5.7) L 09/07/17 11:29 Amylase 25 Units/L (29-103) L 09/07/17 11:[address] > 1.030 (1.010-1.025) H 09/01/17 15:05 Urine Protein 30 mg/dL (Neg-Trace) H 09/01/17 15:05 Urine Glucose (UA) 500 mg/dL (Normal) H 09/01/17 15:05 Urine Ketones Trace mg/dL (Negative) H 09/01/17 15:05 - VTE Documentation of Mechanical Device: Intermittent pneumatic compression device Consult Discharge Plan - Plan Referrals: Brenda Her PAC [Physician Count Team Member] - 09/12/17 3:00 pm Saji Parada CNP [Advanced Practice Nurse] - (Office will call patient at home with follow up appointment) Trini Roy MD [Primary Care Provider] - (Patient is going to [facility] no PCP appontment needed) Prescriptions: OxyCODONE Immed Rel [Roxicodone 5 MG] 5 mg PO Q6HR PRN 7 Days #28 tablet PRN Reason: Severe Pain
[2017-09-08] MEDS ORDERED: D10% in Water 500 ML IVC PRN (11:42)
[2017-09-08] MEDS: Levothyroxine Sodium 100 MCG VIAL IV SCH (12:18)
[2017-09-08] MEDS ORDERED: Lidocaine -MPF 1% 5 ML AMPUL INFILT ONE (13:18)
[2017-09-08] MEDS ORDERED: *HR* Metoprolol 5 MG/5 ML VIAL IVP PRN (15:47)
[2017-09-08] MEDS ORDERED: Clinimix E 5%-15% SOLUTION 2,000 ML with MVI, adult with vitamin K 10 ML, Potassium A... IVC SCH (17:00)
--- NOTE | 2017-09-08 17:35 | Internal Med Progress Note ---
Date of Encounter: 09/08/17 Time of Encounter: 17:33 - Assessment and plan (1) Lumbar radiculitis Current Visit: Yes Status: Chronic Assessment and plan: Management per orthopedics. (2) Status post lumbar spinal fusion Current Visit: Yes Status: Acute Assessment and plan: Management per orthopedics. (3) Lumbar radiculopathy Current Visit: Yes Status: Chronic Assessment and plan: Management per orthopedics. (4) Lumbar stenosis Current Visit: Yes Status: Chronic Assessment and plan: Management per orthopedics. Qualifiers: Neurogenic claudication status: unspecified Qualified Code(s): M48.061 - Spinal stenosis, lumbar region without neurogenic claudication (5) Spondylolisthesis Current Visit: Yes Status: Chronic Assessment and plan: Management per orthopedics. Qualifiers: Spinal region: lumbar Qualified Code(s): M43.16 - Spondylolisthesis, lumbar region (6) Leukocytosis Current Visit: Yes Status: Resolved Assessment and plan: Resolved. Recheck CBC in AM. Qualifiers: Leukocytosis type: unspecified Qualified Code(s): D72.829 - Elevated white blood cell count, unspecified (7) Sepsis Current Visit: Yes Status: Resolved Assessment and plan: Resolved. Qualifiers: Sepsis type: sepsis due to unspecified organism Qualified Code(s): A41.9 - Sepsis, unspecified organism (8) Hyponatremia Current Visit: Yes Status: Resolved Assessment and plan: Resolved. On TPN. Recheck BMP in AM. (9) Hypokalemia Current Visit: Yes Status: Acute Assessment and plan: Replete per nursing protocol. Recheck BMP in AM. (10) Atrial fibrillation with RVR Current Visit: Yes Status: Resolved Assessment and plan: Resolved. Continue telemetry. (11) Ileus, postoperative Current Visit: Yes Status: Acute Assessment and plan: Looks to be clinically improving after insertion of NG tube. Less abdominal distension and less TTP today. No nausea or vomiting. GI consulted; appreciate input. Continue NG tube to suction. Continue IV PPI. Keep NPO. Continue to hold all opioids. Consider chewing gum. Tool Carrier consulted and started TPN today. Continue to replete electrolytes as per above. Continue to monitor closely. (12) DVT prophylaxis Current Visit: Yes Status: Acute Assessment and plan: Hold anticoagulation due to bilateral flank ecchymoses. Continue SCDs. - Time Spent With Patient Total time spent is greater than 50% in coordination of care (as documented) at patient's floor/unit and/or counseling patient: less than 15 minutes - Subjective Interval history: Patient had no acute events overnight. Patient is in much better spirits today. He is joking around with me. He states that abdominal pain greatly improved since NG inserted. TPN started today and managed by in service educator. Patient denies chest pain, SOB, fever, chills, nausea, vomiting, or abdominal pain. He has no complaints at this time. - Constitutional Vitals: Temp Pulse Resp BP Pulse Ox 97.9 F 86 19 132/86 99 09/08/17 15:55 09/08/17 15:55 09/08/17 15:55 09/08/17 15:55 09/08/17 15:55 General appearance: Present: cooperative, A&O X 3, pleasant, no acute distress, obese, answers questions appropriately (but difficult to understand) - Respiratory Respiratory exam: Present: CTAB. Absent: accessory muscle use, rales, rhonchi, wheezes Additional comments: Normal WOB - Cardiovascular Cardiovascular exam: Present: RRR, +S1, +S2. Absent: diastolic murmur, gallop, rubs, systolic murmur Additional comments: No BLE edema - GI/Abdominal GI/Abdominal exam: Present: distended (improved from yesterday), hypoactive bowel sounds, soft. Absent: hepatomegaly, mass, splenomegaly, tenderness - Psychiatric Psychiatric exam: Present: normal affect, normal mood. Absent: agitated, anxious, depressed - Skin Skin exam: Present: dry, intact, warm. Absent: cyanosis, rash Internal Medicine: Result - Labs CBC & Chem 7: 09/08/17 03:30 09/08/17 03:30 Labs: Short CBC 09/08/17 Range/Units 03:30 WBC 9.1 (4.3-11.1) K/mcL Hgb 10.5 L (12.9-16.9) g/dL Hct 31.2 L (37.5-50.1) % Plt Count 294 (140-400) K/mcL Neutrophils # 7.2 (1.6-8.9) K/mcL BMP 09/08/17 03:30 Sodium 144 Potassium 2.5 L* Chloride 112 H Carbon Dioxide 19 L BUN 10 Creatinine 0.68 L Glucose 164 H Calcium 8.0 L - ABG Interpretation ABG results: PT/INR, D-dimer D-Dimer 1689 ng/mLFEU (0-500) H 09/01/17 16:30 - VTE Reasons for not Prescribing Prophylaxis: Medical contraindication (Bialteral flank ecchymoses) Documentation of Mechanical Device: Intermittent pneumatic compression device Consult Discharge Plan - Plan Referrals: Brenda Her, PAC [Physician Cost Manager] - 09/12/17 3:00 pm Saji Parada CNP [Advanced Practice Nurse] - (Office will call patient at home with follow up appointment) Trini Roy MD [Primary Care Provider] - (Patient is going to [facility] no PCP appontment needed) Prescriptions: RX: OxyCODONE Immed Rel [Roxicodone 5 MG] 5 mg PO Q6HR PRN 7 Days #28 tablet PRN Reason: Severe Pain
[2017-09-08 21:01] LABS: VBG Ionized Calcium 0.97 mmol/L (1.15-1.35)
[2017-09-08 21:18] LABS: BUN/Creatinine Ratio 11 (6-26); Blood Urea Nitrogen 8 mg/dL (8-23); Carbon Dioxide 21 mEq/L (23-29); Chloride 108 mEq/L (98-107); Glucose 219 mg/dL (70-105); Magnesium 1.8 mg/dL (1.6-2.6); Osmolality,Calculated 295 (280-300); Phosphorous 2.1 mg/dL (2.7-4.5); Potassium 2.7 mEq/L (3.5-5.1); Sodium 140 mEq/L (136-145); eGFR For African Americans > 60 (> 60); eGFR For Non-African Americans > 60 (> 60)
[2017-09-08] MEDS: 0.9 % Sodium Chloride w KCl 20 MEQ/1,000 ML MLS IVC SCH (22:53)
[2017-09-09] MEDS: Potassium Phosphate 44 MEQ in 0.9 % Sodium Chloride 250 ML IVPB PRN ×2 (00:01→12:10)
[2017-09-09] MEDS: Insulin LISPRO 300 UNITS/3 ML VIAL SQ SCH ×6 (00:02→21:31)
[2017-09-09 04:21] LABS: VBG Ionized Calcium 1.08 mmol/L (1.15-1.35)
[2017-09-09 04:40] LABS: BUN/Creatinine Ratio 12 (6-26); Blood Urea Nitrogen 9 mg/dL (8-23); Carbon Dioxide 23 mEq/L (23-29); Chloride 110 mEq/L (98-107); Glucose 222 mg/dL (70-105); Osmolality,Calculated 298 (280-300); Phosphorous 2.9 mg/dL (2.7-4.5); Sodium 141 mEq/L (136-145); Triglycerides 203 mg/dL (< 150); eGFR For African Americans > 60 (> 60); eGFR For Non-African Americans > 60 (> 60)
[2017-09-09] MEDS: Levothyroxine Sodium 100 MCG VIAL IV SCH (05:54)
[2017-09-09] MEDS ORDERED: Levothyroxine Sodium 100 MCG VIAL IV SCH (06:30)
[2017-09-09] MEDS: Pantoprazole 40 MG VIAL IVP SCH (07:43)
[2017-09-09 10:55] LABS: VBG Ionized Calcium 1.12 mmol/L (1.15-1.35)
[2017-09-09 10:59] LABS: Phosphorous 2.4 mg/dL (2.7-4.5); Potassium 2.7 mEq/L (3.5-5.1)
[2017-09-09] MEDS: Insulin DETEMIR 100 UNIT/ML X5UNITS SQ SCH (13:09)
[2017-09-09] MEDS ORDERED: Chloraseptic Spray 177 ML BOTTLE MM PRN (13:33)
--- NOTE | 2017-09-09 15:04 | Internal Med Progress Note ---
Date of Encounter: 09/09/17 Time of Encounter: 15:02 - Assessment and plan (1) Lumbar radiculitis Current Visit: Yes Status: Chronic Assessment and plan: Management per orthopedics. (2) Status post lumbar spinal fusion Current Visit: Yes Status: Acute Assessment and plan: Management per orthopedics. (3) Lumbar radiculopathy Current Visit: Yes Status: Chronic Assessment and plan: Management per orthopedics. (4) Lumbar stenosis Current Visit: Yes Status: Chronic Assessment and plan: Management per orthopedics. Qualifiers: Neurogenic claudication status: unspecified Qualified Code(s): M48.061 - Spinal stenosis, lumbar region without neurogenic claudication (5) Spondylolisthesis Current Visit: Yes Status: Chronic Assessment and plan: Management per orthopedics. Qualifiers: Spinal region: lumbar Qualified Code(s): M43.16 - Spondylolisthesis, lumbar region (6) Leukocytosis Current Visit: Yes Status: Resolved Assessment and plan: Resolved. Recheck CBC in AM. Qualifiers: Leukocytosis type: unspecified Qualified Code(s): D72.829 - Elevated white blood cell count, unspecified (7) Sepsis Current Visit: Yes Status: Resolved Assessment and plan: Resolved. Qualifiers: Sepsis type: sepsis due to unspecified organism Qualified Code(s): A41.9 - Sepsis, unspecified organism (8) Hyponatremia Current Visit: Yes Status: Resolved Assessment and plan: Resolved. On TPN. Recheck BMP in AM. (9) Hypokalemia Current Visit: Yes Status: Acute Assessment and plan: Replete per nursing protocol. On TPN now. Recheck BMP in AM. (10) Atrial fibrillation with RVR Current Visit: Yes Status: Resolved Assessment and plan: Resolved. Continue telemetry. (11) Ileus, postoperative Current Visit: Yes Status: Acute Assessment and plan: Looks to be clinically improving, albeit slowly, after insertion of NG tube. Less abdominal distension and less TTP today. No nausea or vomiting. GI consulted; appreciate input. Continue NG tube to suction. Continue IV PPI. Keep NPO. Continue to hold all opioids. Consider chewing gum. Regulatory Compliance Director consulted and managing TPN; added increased insulin coverage today. Continue to replete electrolytes as per above. Continue to monitor closely. Consider reimaging once clinically stable enough to trial PO diet. (12) DVT prophylaxis Current Visit: Yes Status: Acute Assessment and plan: Hold anticoagulation due to bilateral flank ecchymoses. Continue SCDs. - Time Spent With Patient Total time spent is greater than 50% in coordination of care (as documented) at patient's floor/unit and/or counseling patient: 25 - 35 minutes - Subjective Interval history: Patient had no acute events overnight. Patient wants to go home. He had accident because staff did not come to him quick enough to use bedpan. He states that abdominal pain is "OK" at this time. TPN managed by television cabinet finisher, who recommends bumping up insulin coverage. Patient denies chest pain, SOB, fever, chills, nausea, vomiting, or abdominal pain. He has no other complaints at this time. - Constitutional Vitals: Temp Pulse Resp BP Pulse Ox 98.4 F 96 20 114/69 97 09/09/17 11:51 09/09/17 11:51 09/09/17 11:51 09/09/17 11:51 09/09/17 11:51 General appearance: Present: cooperative, A&O X 3, pleasant, no acute distress, obese, answers questions appropriately - Respiratory Respiratory exam: Present: CTAB. Absent: accessory muscle use, rales, rhonchi, wheezes Additional comments: Normal WOB - Cardiovascular Cardiovascular exam: Present: RRR, +S1, +S2. Absent: diastolic murmur, gallop, rubs, systolic murmur Additional comments: No BLE edema - GI/Abdominal GI/Abdominal exam: Present: distended (Moderate), hypoactive bowel sounds, soft. Absent: hepatomegaly, mass, splenomegaly, tenderness - Psychiatric Psychiatric exam: Present: normal affect, normal mood. Absent: agitated, anxious, depressed - Skin Skin exam: Present: dry, intact, warm. Absent: cyanosis, rash Internal Medicine: Result - Labs CBC & Chem 7: 09/08/17 03:30 09/09/17 10:15 Labs: BMP 09/08/17 09/09/17 09/09/17 19:55 03:06 10:15 Sodium 140 141 Potassium 2.7 L 3.0 L 2.7 L Chloride 108 H 110 H Carbon Dioxide 21 L 23 BUN 8 9 Creatinine 0.70 0.78 Glucose 219 H 222 H Calcium 8.0 L 8.0 L - ABG Interpretation ABG results: PT/INR, D-dimer D-Dimer 1689 ng/mLFEU (0-500) H 09/01/17 16:30 - Impressions Impressions KUB X-Ray 09/08/17 08:11 IMPRESSION: Decreased caliber of gas filled colonic loops status post nasogastric tube placement. D/ / Colleen Mauricio MD / Colleen Mauricio MD Interpreting Provider: Colleen Mauricio MD - VTE Reasons for not Prescribing Prophylaxis: Medical contraindication (Bialteral flank ecchymoses) Documentation of Mechanical Device: Intermittent pneumatic compression device Consult Discharge Plan - Plan Referrals: Brenda Her PAC [Physician Negative Notcher] - 09/12/17 3:00 pm Saji Parada CNP [Advanced Practice Nurse] - (Office will call patient at home with follow up appointment) Trini Roy MD [Primary Care Provider] - (Patient is going to [facility] no PCP appontment needed) Prescriptions: OxyCODONE Immed Rel [Roxicodone 5 MG] 5 mg PO Q6HR PRN 7 Days #28 tablet PRN Reason: Severe Pain
[2017-09-09] MEDS ORDERED: Clinimix E 5%-15% SOLUTION 2,000 ML with MVI, adult with vitamin K 10 ML, Potassium A... IVC SCH (17:00)
[2017-09-10] MEDS: Insulin LISPRO 300 UNITS/3 ML VIAL SQ SCH ×7 (00:55→23:46)
[2017-09-10] MEDS ORDERED: Acetaminophen 650 MG RECTAL SUPP RC PRN (01:27)
[2017-09-10] MEDS: *HR* OxyCODONE Oral Soln 5 MG/5 ML UD.LIQ PO PRN (02:40)
[2017-09-10] MEDS: Ondansetron 4 MG/2 ML VIAL IVP PRN (02:40)
[2017-09-10 03:09] LABS: Basophils % 0.2 %; Eosinophils # 0.5 K/mcL (0.0-0.6); Eosinophils % 4.9 %; Hematocrit 31.5 % (37.5-50.1); Hemoglobin 10.4 g/dL (12.9-16.9); Immature Granulocytes % 0.6 % (0-4); Immature Platelets 3.2 % (1.1-6.1); Lymphocytes # 1.1 K/mcL (0.6-4.6); Lymphocytes % 10.7 %; Mean Corpuscular Hemoglobin 30.3 pg (28.0-33.3); Mean Corpuscular Volume 91.8 fL (83.0-100.0); Mean Platelet Volume 10.3 fL (9.4-12.4); Monocytes # 0.5 K/mcL (0.0-1.3); Monocytes % 4.8 %; Platelet Count 302 K/mcL (140-400); Red Blood Count 3.43 M/mcL (4.19-5.50); Red Cell Distribution Width 15.1 % (11.5-14.5); Segmented Neutrophils % 78.8 %
[2017-09-10 03:56] LABS: Magnesium 1.8 mg/dL (1.6-2.6); Phosphorous 3.2 mg/dL (2.7-4.5)
[2017-09-10 03:57] LABS: BUN/Creatinine Ratio 13 (6-26); Blood Urea Nitrogen 9 mg/dL (8-23); Calcium 7.8 mg/dL (8.6-10.3); Carbon Dioxide 22 mEq/L (23-29); Chloride 111 mEq/L (98-107); Glucose 200 mg/dL (70-105); Osmolality,Calculated 300 (280-300); Potassium 2.8 mEq/L (3.5-5.1); Sodium 143 mEq/L (136-145); eGFR For African Americans > 60 (> 60); eGFR For Non-African Americans > 60 (> 60)
[2017-09-10] MEDS: Levothyroxine Sodium 100 MCG VIAL IV SCH (06:30)
[2017-09-10] MEDS: Pantoprazole 40 MG VIAL IVP SCH (08:25)
[2017-09-10] MEDS: Insulin DETEMIR 100 UNIT/ML X5UNITS SQ SCH (08:26)
--- NOTE | 2017-09-10 14:05 | Internal Med Progress Note ---
Date of Encounter: 09/10/17 Time of Encounter: 14:03 - Assessment and plan (1) Lumbar radiculitis Current Visit: Yes Status: Chronic Assessment and plan: Management per orthopedics. (2) Status post lumbar spinal fusion Current Visit: Yes Status: Acute Assessment and plan: Management per orthopedics. (3) Lumbar radiculopathy Current Visit: Yes Status: Chronic Assessment and plan: Management per orthopedics. (4) Lumbar stenosis Current Visit: Yes Status: Chronic Assessment and plan: Management per orthopedics. Qualifiers: Neurogenic claudication status: unspecified Qualified Code(s): M48.061 - Spinal stenosis, lumbar region without neurogenic claudication (5) Spondylolisthesis Current Visit: Yes Status: Chronic Assessment and plan: Management per orthopedics. Qualifiers: Spinal region: lumbar Qualified Code(s): M43.16 - Spondylolisthesis, lumbar region (6) Leukocytosis Current Visit: Yes Status: Resolved Assessment and plan: Resolved. Recheck CBC in AM. Qualifiers: Leukocytosis type: unspecified Qualified Code(s): D72.829 - Elevated white blood cell count, unspecified (7) Sepsis Current Visit: Yes Status: Resolved Assessment and plan: Resolved. Qualifiers: Sepsis type: sepsis due to unspecified organism Qualified Code(s): A41.9 - Sepsis, unspecified organism (8) Hyponatremia Current Visit: Yes Status: Resolved Assessment and plan: Resolved. On TPN. Recheck BMP in AM. (9) Hypokalemia Current Visit: Yes Status: Acute Assessment and plan: Replete per nursing protocol. On TPN now. Recheck BMP in AM. (10) Atrial fibrillation with RVR Current Visit: Yes Status: Resolved Assessment and plan: Resolved. Continue telemetry. (11) Ileus, postoperative Current Visit: Yes Status: Acute Assessment and plan: Looks to be clinically improving, albeit slowly, after insertion of NG tube. Less abdominal distension and less TTP today. No nausea or vomiting. GI consulted; appreciate input. Continue NG tube to suction. Continue IV PPI. Keep NPO. Continue to hold all opioids. Consider chewing gum. Change Control Specialist consulted and managing TPN. Continue to replete electrolytes as per above. Continue to monitor closely. Will obtain KUB tomorrow AM and consider trial of PO diet. (12) Allergic drug rash Current Visit: Yes Status: Acute Assessment and plan: Possibly from vancomycin. Start benadryl 25 mg IV Q6H PRN itching. (13) Oral thrush Current Visit: Yes Status: Acute Assessment and plan: Start nystatin swish and spit QID. Continue moisturizing swabs to mouth. (14) DVT prophylaxis Current Visit: Yes Status: Acute Assessment and plan: Hold anticoagulation due to bilateral flank ecchymoses. Continue SCDs. - Time Spent With Patient Total time spent is greater than 50% in coordination of care (as documented) at patient's floor/unit and/or counseling patient: less than 15 minutes - Subjective Interval history: Patient had no acute events overnight. He is in better spirits today with family in room. He states that abdominal pain is "OK" at this time. TPN managed by senior painter. Nursing staff reports diffuse rash across entire body, possibly from vancomycin. He complains of itching. He also has dry mouth and was told it may be thrush. Patient denies chest pain, SOB, fever, chills, nausea, vomiting, or abdominal pain. He has no other complaints at this time. - Constitutional Vitals: Temp Pulse Resp BP Pulse Ox 98.6 F 94 16 130/65 95 09/10/17 12:06 09/10/17 12:06 09/10/17 12:06 09/10/17 12:06 09/10/17 12:06 General appearance: Present: cooperative, A&O X 3, pleasant, no acute distress, obese, answers questions appropriately - ENT ENT exam: Present: mucous membranes dry, normal external ear exam Additional comments: White plaque on posterior tongue and roof of mouth - Respiratory Respiratory exam: Present: CTAB. Absent: accessory muscle use, rales, rhonchi, wheezes Additional comments: Normal WOB - Cardiovascular Cardiovascular exam: Present: RRR, +S1, +S2. Absent: diastolic murmur, gallop, rubs, systolic murmur Additional comments: No BLE edema - GI/Abdominal GI/Abdominal exam: Present: distended (moderate), hypoactive bowel sounds, soft. Absent: hepatomegaly, mass, splenomegaly, tenderness - Psychiatric Psychiatric exam: Present: normal affect, normal mood. Absent: agitated, anxious, depressed - Skin Skin exam: Present: dry, intact, rash (Diffuse erythematous macular papular rash on entire body, worse on trunk), warm. Absent: cyanosis Internal Medicine: Result - Labs CBC & Chem 7: 09/10/17 02:45 09/10/17 02:45 Labs: Short CBC 09/10/17 Range/Units 02:45 WBC 10.1 (4.3-11.1) K/mcL Hgb 10.4 L (12.9-16.9) g/dL Hct 31.5 L (37.5-50.1) % Plt Count 302 (140-400) K/mcL Neutrophils # 8.0 (1.6-8.9) K/mcL BMP 09/10/17 02:45 Sodium 143 Potassium 2.8 L Chloride 111 H Carbon Dioxide 22 L BUN 9 Creatinine 0.72 Glucose 200 H Calcium 7.8 L - ABG Interpretation ABG results: PT/INR, D-dimer D-Dimer 1689 ng/mLFEU (0-500) H 09/01/17 16:30 - VTE Reasons for not Prescribing Prophylaxis: Medical contraindication (Bialteral flank ecchymoses) Documentation of Mechanical Device: Intermittent pneumatic compression device Consult Discharge Plan - Plan Referrals: Brenda Her PAC [Physician Coach Operator] - 09/12/17 3:00 pm Saji Parada CNP [Advanced Practice Nurse] - (Office will call patient at home with follow up appointment) Trini Roy MD [Primary Care Provider] - (Patient is going to [facility] no PCP appontment needed) Prescriptions: OxyCODONE Immed Rel [Roxicodone 5 MG] 5 mg PO Q6HR PRN 7 Days #28 tablet PRN Reason: Severe Pain
[2017-09-10] MEDS ORDERED: Clinimix E 5%-15% SOLUTION 2,000 ML with MVI, adult with vitamin K 10 ML, Potassium A... IVC SCH (17:00)
[2017-09-10] MEDS: Nystatin SUSP 5 ML UD.LIQ PO SCH ×3 (17:06→21:04)
[2017-09-10 18:18] LABS: Potassium 2.9 mEq/L (3.5-5.1)
[2017-09-11] MEDS: Insulin LISPRO 300 UNITS/3 ML VIAL SQ SCH ×5 (04:21→22:00)
[2017-09-11 05:00] LABS: Basophils % 0.2 %; Eosinophils # 0.6 K/mcL (0.0-0.6); Eosinophils % 4.5 %; Hematocrit 31.5 % (37.5-50.1); Hemoglobin 10.4 g/dL (12.9-16.9); Immature Granulocytes % 0.8 % (0-4); Lymphocytes # 1.1 K/mcL (0.6-4.6); Lymphocytes % 8.2 %; Mean Corpuscular Volume 93.8 fL (83.0-100.0); Mean Platelet Volume 10.7 fL (9.4-12.4); Monocytes # 0.6 K/mcL (0.0-1.3); Monocytes % 4.7 %; Neutrophils # 10.5 K/mcL (1.6-8.9); Platelet Count 308 K/mcL (140-400); Red Blood Count 3.36 M/mcL (4.19-5.50); Segmented Neutrophils % 81.6 %
[2017-09-11 05:14] LABS: BUN/Creatinine Ratio 14 (6-26); Blood Urea Nitrogen 10 mg/dL (8-23); Calcium 7.9 mg/dL (8.6-10.3); Carbon Dioxide 24 mEq/L (23-29); Chloride 111 mEq/L (98-107); Glucose 259 mg/dL (70-105); Magnesium 1.9 mg/dL (1.6-2.6); Osmolality,Calculated 304 (280-300); Phosphorous 2.5 mg/dL (2.7-4.5); Potassium 2.8 mEq/L (3.5-5.1); Sodium 143 mEq/L (136-145); eGFR For African Americans > 60 (> 60); eGFR For Non-African Americans > 60 (> 60)
[2017-09-11] MEDS: Levothyroxine Sodium 100 MCG VIAL IV SCH (05:50)
[2017-09-11] MEDS: Potassium Phosphate 44 MEQ in 0.9 % Sodium Chloride 250 ML IVPB PRN (05:58)
[2017-09-11] MEDS: Insulin DETEMIR 100 UNIT/ML X5UNITS SQ SCH ×2 (08:32→21:59)
[2017-09-11] MEDS: Pantoprazole 40 MG VIAL IVP SCH (08:33)
[2017-09-11] MEDS: Nystatin SUSP 5 ML UD.LIQ PO SCH ×4 (08:46→21:59)
[2017-09-11] MEDS ORDERED: Insulin DETEMIR 100 UNIT/ML X5UNITS SQ STA (11:30)
--- NOTE | 2017-09-11 11:46 | Internal Med Progress Note ---
Date of Encounter: 09/11/17 Time of Encounter: 11:44 - Assessment and plan (1) Lumbar radiculitis Current Visit: Yes Status: Chronic Assessment and plan: Management per orthopedics. (2) Status post lumbar spinal fusion Current Visit: Yes Status: Acute Assessment and plan: Management per orthopedics. (3) Lumbar radiculopathy Current Visit: Yes Status: Chronic Assessment and plan: Management per orthopedics. (4) Lumbar stenosis Current Visit: Yes Status: Chronic Assessment and plan: Management per orthopedics. Qualifiers: Neurogenic claudication status: unspecified Qualified Code(s): M48.061 - Spinal stenosis, lumbar region without neurogenic claudication (5) Spondylolisthesis Current Visit: Yes Status: Chronic Assessment and plan: Management per orthopedics. Qualifiers: Spinal region: lumbar Qualified Code(s): M43.16 - Spondylolisthesis, lumbar region (6) Leukocytosis Current Visit: Yes Status: Acute Assessment and plan: Trended up a little today, likely reactive. Recheck CBC in AM. Qualifiers: Leukocytosis type: unspecified Qualified Code(s): D72.829 - Elevated white blood cell count, unspecified (7) Sepsis Current Visit: Yes Status: Resolved Assessment and plan: Resolved. Qualifiers: Sepsis type: sepsis due to unspecified organism Qualified Code(s): A41.9 - Sepsis, unspecified organism (8) Hyponatremia Current Visit: Yes Status: Resolved Assessment and plan: Resolved. On TPN. Trial of clear liquid diet today. Recheck BMP in AM. (9) Hypokalemia Current Visit: Yes Status: Acute Assessment and plan: Replete per nursing protocol. On TPN now. Trial of clear liquid diet today. Will add potassium chloride 40 mEq PO BID. Recheck BMP in AM. (10) Atrial fibrillation with RVR Current Visit: Yes Status: Resolved Assessment and plan: Resolved. Continue telemetry. (11) Ileus, postoperative Current Visit: Yes Status: Acute Assessment and plan: Looks to be clinically improving, albeit slowly, after insertion of NG tube. Minimal abdominal distension and no TTP today. No nausea or vomiting. GI consulted; appreciate input. KUB this AM showed non-obstructive pattern with no colonic dilatation. Remove NG tube today, and start trial of clear liquid diet; advance as tolerated. Continue IV PPI. Continue to hold all opioids. Consider chewing gum. Sales Representative Printing Supplies consulted and managing TPN; will discontinue TPN after tolerating good PO. Continue to replete electrolytes as per above. Continue to monitor closely. Increased levemir for increasing blood glucose. Continue accuchecks and SSI QID AC/HS. (12) Allergic drug rash Current Visit: Yes Status: Acute Assessment and plan: Possibly from vancomycin. Now improving. Continue benadryl 25 mg IV Q6H PRN itching. (13) Oral thrush Current Visit: Yes Status: Acute Assessment and plan: Slowly improving. Continue nystatin swish and spit QID. Continue moisturizing swabs to mouth. I anticipate dry mouth to improve with resumption of PO diet today. (14) DVT prophylaxis Current Visit: Yes Status: Acute Assessment and plan: Hold anticoagulation due to bilateral flank ecchymoses. Continue SCDs. - Time Spent With Patient Total time spent is greater than 50% in coordination of care (as documented) at patient's floor/unit and/or counseling patient: less than 15 minutes - Subjective Interval history: Patient had no acute events overnight. He is in good spirits today. He denies abdominal pain, nausea, and vomiting. TPN being managed by starch cooker, and blood glucose trending up. Body rash is improved and itching controlled with benadryl. Dry mouth and oral thrush look a little better. Patient denies chest pain, SOB, fever, or chills. KUB showed non-obstructive pattern with no colonic dilatation. He is agreeable to removing NG tube and trial of clear liquid diet. He has no other complaints at this time. - Constitutional Vitals: Temp Pulse Resp BP Pulse Ox 99.5 F 95 16 113/62 95 09/11/17 11:34 09/11/17 11:34 09/11/17 11:34 09/11/17 11:34 09/11/17 11:34 General appearance: Present: cooperative, A&O X 3, pleasant, no acute distress, obese, answers questions appropriately - ENT ENT exam: Present: mucous membranes dry, normal external ear exam. Absent: normal oropharynx (less oral erythema and white plaque) - Respiratory Respiratory exam: Present: CTAB. Absent: accessory muscle use, rales, rhonchi, wheezes Additional comments: Normal WOB - Cardiovascular Cardiovascular exam: Present: RRR, +S1, +S2. Absent: diastolic murmur, gallop, rubs, systolic murmur Additional comments: No BLE edema - GI/Abdominal GI/Abdominal exam: Present: distended (Minimal), hypoactive bowel sounds, soft. Absent: hepatomegaly, mass, splenomegaly, tenderness - Psychiatric Psychiatric exam: Present: normal affect, normal mood. Absent: agitated, anxious, depressed - Skin Skin exam: Present: dry, intact, rash (diffuse maculopapular rash improving), warm. Absent: cyanosis Internal Medicine: Result - Labs CBC & Chem 7: 09/11/17 04:00 09/11/17 04:00 Labs: Short CBC 09/11/17 Range/Units 04:00 WBC 12.9 H (4.3-11.1) K/mcL Hgb 10.4 L (12.9-16.9) g/dL Hct 31.5 L (37.5-50.1) % Plt Count 308 (140-400) K/mcL Neutrophils # 10.5 H (1.6-8.9) K/mcL BMP 09/10/17 09/11/17 16:00 04:00 Sodium 143 Potassium 2.9 L 2.8 L Chloride 111 H Carbon Dioxide 24 BUN 10 Creatinine 0.71 Glucose 259 H Calcium 7.9 L - ABG Interpretation ABG results: PT/INR, D-dimer D-Dimer 1689 ng/mLFEU (0-500) H 09/01/17 16:30 - Impressions Impressions KUB X-Ray 09/11/17 06:00 IMPRESSION: Paucity of gas in the abdomen. Nonobstructive bowel gas pattern. D/ / 09/11/2017 07:52:22 Emy Simon MD / stacy Interpreting Provider: Emy Simon MD - VTE Reasons for not Prescribing Prophylaxis: Medical contraindication (Bialteral flank ecchymoses) Documentation of Mechanical Device: Intermittent pneumatic compression device Consult Discharge Plan - Plan Referrals: Brenda Her PAC [Physician Financial Brokers] - Saji Parada ANIMAL CARE WORKER [Advanced Practice Nurse] - (Office will call patient at home with follow up appointment) Trini Roy MD [Primary Care Provider] - (Patient is going to [facility] no PCP appontment needed) Prescriptions: OxyCODONE Immed Rel [Roxicodone 5 MG] 5 mg PO Q6HR PRN 7 Days #28 tablet PRN Reason: Severe Pain
[2017-09-11] MEDS ORDERED: Clinimix E 5%-15% SOLUTION 2,000 ML with MVI, adult with vitamin K 10 ML, Potassium P... IVC SCH (17:00)
[2017-09-11] MEDS: Potassium Chloride Elixir 20 MEQ/15 ML UDC PO SCH ×2 (18:19→21:59)
[2017-09-11 21:55] LABS: Magnesium 2.1 mg/dL (1.6-2.6); Potassium 2.7 mEq/L (3.5-5.1)
[2017-09-12] MEDS: Insulin LISPRO 300 UNITS/3 ML VIAL SQ SCH ×4 (03:48→13:02)
[2017-09-12] MEDS: Levothyroxine Sodium 100 MCG VIAL IV SCH (06:33)
[2017-09-12] MEDS: Potassium Chloride Elixir 20 MEQ/15 ML UDC PO SCH ×2 (08:02→22:28)
[2017-09-12] MEDS: Nystatin SUSP 5 ML UD.LIQ PO SCH ×4 (08:02→22:28)
[2017-09-12] MEDS: Pantoprazole 40 MG VIAL IVP SCH (08:03)
[2017-09-12] MEDS: Insulin DETEMIR 100 UNIT/ML X5UNITS SQ SCH (10:22)
[2017-09-12 10:46] LABS: Basophils % 0.4 %; Eosinophils # 0.6 K/mcL (0.0-0.6); Eosinophils % 6.7 %; Hematocrit 29.7 % (37.5-50.1); Hemoglobin 9.8 g/dL (12.9-16.9); Immature Granulocytes % 0.6 % (0-4); Lymphocytes % 10.6 %; Mean Corpuscular Hemoglobin 31.2 pg (28.0-33.3); Mean Corpuscular Volume 94.6 fL (83.0-100.0); Mean Platelet Volume 10.6 fL (9.4-12.4); Monocytes # 0.6 K/mcL (0.0-1.3); Monocytes % 5.8 %; Neutrophils # 7.2 K/mcL (1.6-8.9); Platelet Count 302 K/mcL (140-400); Red Blood Count 3.14 M/mcL (4.19-5.50); Red Cell Distribution Width 15.1 % (11.5-14.5); Segmented Neutrophils % 75.9 %
[2017-09-12 11:05] LABS: BUN/Creatinine Ratio 14 (6-26); Blood Urea Nitrogen 10 mg/dL (8-23); Carbon Dioxide 25 mEq/L (23-29); Chloride 110 mEq/L (98-107); Glucose 257 mg/dL (70-105); Osmolality,Calculated 302 (280-300); Phosphorous 2.2 mg/dL (2.7-4.5); Potassium 3.3 mEq/L (3.5-5.1); Sodium 142 mEq/L (136-145); eGFR For African Americans > 60 (> 60); eGFR For Non-African Americans > 60 (> 60)
[2017-09-12] MEDS: Potassium Phosphate 44 MEQ in 0.9 % Sodium Chloride 250 ML IVPB PRN (12:51)
[2017-09-12] MEDS ORDERED: Clinimix E 5%-15% SOLUTION 2,000 ML with MVI, adult with vitamin K 10 ML, Potassium P... IVC SCH (17:00)
--- NOTE | 2017-09-12 17:06 | Internal Med Progress Note ---
Date of Encounter: 09/12/17 Time of Encounter: 17:03 - Assessment and plan (1) Ileus, postoperative Current Visit: Yes Status: Acute Assessment and plan: Looks to be clinically improving, albeit slowly, after insertion of NG tube. Minimal abdominal distension and no TTP today. No nausea or vomiting. GI consulted; appreciate input. KUB this AM showed non-obstructive pattern with no colonic dilatation. Remove NG tube today, and start trial of clear liquid diet; advance as tolerated. Continue IV PPI. Continue to hold all opioids. Consider chewing gum. Fur Coat Sewer consulted and managing TPN; will discontinue TPN after tolerating good PO. Continue to replete electrolytes as per above. Continue to monitor closely. Increased levemir for increasing blood glucose. Continue accuchecks and SSI QID AC/HS. - Stop TPN today - Continue to advance diet, if tolerates diet probably DC tomorrow. (2) Lumbar radiculitis Current Visit: Yes Status: Chronic Assessment and plan: Management per orthopedics. (3) Status post lumbar spinal fusion Current Visit: Yes Status: Acute Assessment and plan: Management per orthopedics. (4) Lumbar radiculopathy Current Visit: Yes Status: Chronic Assessment and plan: Management per orthopedics. (5) Lumbar stenosis Current Visit: Yes Status: Chronic Assessment and plan: Management per orthopedics. Qualifiers: Neurogenic claudication status: unspecified Qualified Code(s): M48.061 - Spinal stenosis, lumbar region without neurogenic claudication (6) Spondylolisthesis Current Visit: Yes Status: Chronic Assessment and plan: Management per orthopedics. Qualifiers: Spinal region: lumbar Qualified Code(s): M43.16 - Spondylolisthesis, lumbar region (7) Leukocytosis Current Visit: Yes Status: Acute Assessment and plan: Trended up a little today, likely reactive. Recheck CBC in AM. Qualifiers: Leukocytosis type: unspecified Qualified Code(s): D72.829 - Elevated white blood cell count, unspecified (8) Sepsis Current Visit: Yes Status: Resolved Assessment and plan: Resolved. Qualifiers: Sepsis type: sepsis due to unspecified organism Qualified Code(s): A41.9 - Sepsis, unspecified organism (9) Hyponatremia Current Visit: Yes Status: Resolved Assessment and plan: Resolved. On TPN. Trial of clear liquid diet today. Recheck BMP in AM. (10) Hypokalemia Current Visit: Yes Status: Acute Assessment and plan: Replete per nursing protocol. On TPN now. Trial of clear liquid diet today. Improving, replace as needed. (11) Atrial fibrillation with RVR Current Visit: Yes Status: Resolved Assessment and plan: Resolved. Continue telemetry. (12) DVT prophylaxis Current Visit: Yes Status: Acute Assessment and plan: Hold anticoagulation due to bilateral flank ecchymoses. Continue SCDs. (13) Allergic drug rash Current Visit: Yes Status: Acute Assessment and plan: Possibly from vancomycin. Now improving. Continue benadryl 25 mg IV Q6H PRN itching. (14) Oral thrush Current Visit: Yes Status: Acute Assessment and plan: Slowly improving. Continue nystatin swish and spit QID. Continue moisturizing swabs to mouth. I anticipate dry mouth to improve with resumption of PO diet today. - Time Spent With Patient Total time spent is greater than 50% in coordination of care (as documented) at patient's floor/unit and/or counseling patient: - Subjective Interval history: Patient able to try out food this afternoon. Otherwise, no acute events. Currently has TPN running. - Constitutional Vitals: Temp Pulse Resp BP Pulse Ox 97.8 F 97 19 126/74 97 09/12/17 17:00 09/12/17 17:00 09/12/17 17:00 09/12/17 17:00 09/12/17 17:00 General appearance: Present: cooperative, A&O X 3, pleasant, no acute distress, obese, answers questions appropriately Exam: - ENT ENT exam: Present: mucous membranes dry, normal external ear exam. Absent: normal oropharynx (less oral erythema and white plaque) - Respiratory Respiratory exam: Present: CTAB. Absent: accessory muscle use, rales, rhonchi, wheezes Additional comments: Normal WOB - Cardiovascular Cardiovascular exam: Present: RRR, +S1, +S2. Absent: diastolic murmur, gallop, rubs, systolic murmur Additional comments: No BLE edema - GI/Abdominal GI/Abdominal exam: Present: distended (Minimal), hypoactive bowel sounds, soft. Absent: hepatomegaly, mass, splenomegaly, tenderness - Psychiatric Psychiatric exam: Present: normal affect, normal mood. Absent: agitated, anxious, depressed - Skin Skin exam: Present: dry, intact, rash (diffuse maculopapular rash improving), warm. Absent: cyanosis Internal Medicine: Result - Labs CBC & Chem 7: 09/12/17 10:00 09/12/17 10:00 Labs: Short CBC 09/12/17 Range/Units 10:00 WBC 9.5 (4.3-11.1) K/mcL Hgb 9.8 L (12.9-16.9) g/dL Hct 29.7 L (37.5-50.1) % Plt Count 302 (140-400) K/mcL Neutrophils # 7.2 (1.6-8.9) K/mcL BMP 09/11/17 09/12/17 19:44 10:00 Sodium 142 Potassium 2.7 L 3.3 L Chloride 110 H Carbon Dioxide 25 BUN 10 Creatinine 0.72 Glucose 257 H Calcium 8.0 L - ABG Interpretation ABG results: PT/INR, D-dimer D-Dimer 1689 ng/mLFEU (0-500) H 09/01/17 16:30 - VTE Reasons for not Prescribing Prophylaxis: Medical contraindication (Bialteral flank ecchymoses) Documentation of Mechanical Device: Intermittent pneumatic compression device Consult Discharge Plan - Plan Referrals: Brenda Her PAC [Physician Cytogenetic Technologist] - Saji Parada CNP [Advanced Practice Nurse] - (Office will call patient at home with follow up appointment) Trini Roy MD [Primary Care Provider] - (Patient is going to [facility] no PCP appontment needed) Prescriptions: OxyCODONE Immed Rel [Roxicodone 5 MG] 5 mg PO Q6HR PRN 7 Days #28 tablet PRN Reason: Severe Pain
[2017-09-12] MEDS ORDERED: Insulin LISPRO 300 UNITS/3 ML VIAL SQ SCH (21:00)
[2017-09-12] MEDS: *HR* OxyCODONE Oral Soln 5 MG/5 ML UD.LIQ PO PRN (22:28)
[2017-09-13] MEDS: Insulin DETEMIR 100 UNIT/ML X5UNITS SQ SCH ×2 (01:50→10:21)
[2017-09-13 06:35] LABS: Basophils # 0.1 K/mcL (0.0-0.2); Basophils % 0.6 %; Eosinophils # 0.7 K/mcL (0.0-0.6); Eosinophils % 7.8 %; Hemoglobin 9.6 g/dL (12.9-16.9); Immature Granulocytes % 0.7 % (0-4); Lymphocytes # 1.1 K/mcL (0.6-4.6); Lymphocytes % 13.1 %; Mean Corpuscular HGB Conc 33.1 g/dL (31.6-35.5); Mean Corpuscular Volume 93.5 fL (83.0-100.0); Mean Platelet Volume 10.3 fL (9.4-12.4); Monocytes # 0.5 K/mcL (0.0-1.3); Monocytes % 6.4 %; Neutrophils # 5.9 K/mcL (1.6-8.9); Platelet Count 299 K/mcL (140-400); Red Cell Distribution Width 15.2 % (11.5-14.5); Segmented Neutrophils % 71.4 %
[2017-09-13 06:54] LABS: BUN/Creatinine Ratio 10 (6-26); Blood Urea Nitrogen 7 mg/dL (8-23); Calcium 7.9 mg/dL (8.6-10.3); Carbon Dioxide 23 mEq/L (23-29); Chloride 112 mEq/L (98-107); Glucose 206 mg/dL (70-105); Magnesium 1.9 mg/dL (1.6-2.6); Osmolality,Calculated 300 (280-300); Phosphorous 2.3 mg/dL (2.7-4.5); Potassium 3.1 mEq/L (3.5-5.1); Sodium 143 mEq/L (136-145); eGFR For African Americans > 60 (> 60); eGFR For Non-African Americans > 60 (> 60)
[2017-09-13 07:15] LABS: Platelet Estimate Normal (Normal)
[2017-09-13] MEDS ORDERED: Calcium Gluconate 2,000 MG in D5% in Water 100 ML IVPB ONE (08:17)
[2017-09-13] MEDS: Insulin LISPRO 300 UNITS/3 ML VIAL SQ SCH ×2 (10:10→12:14)
[2017-09-13] MEDS: Nystatin SUSP 5 ML UD.LIQ PO SCH ×2 (10:19→12:17)
[2017-09-13] MEDS: Potassium Chloride Elixir 20 MEQ/15 ML UDC PO SCH (10:19)
[2017-09-13] MEDS: Levothyroxine Sodium 100 MCG VIAL IV SCH (10:20)
[2017-09-13] MEDS: Pantoprazole 40 MG VIAL IVP SCH (10:20)
[2017-09-13] MEDS ORDERED: Potassium Chloride Elixir 20 MEQ/15 ML UDC PO ONE (10:54)
--- NOTE | 2017-09-13 11:12 | Discharge Summary ---
- NOTES TO OUTPATIENT PROVIDER Notes to Outpatient Provider: Repeat BMP and phosphorus in 3 days. Orders not resulted at time of discharge: Pending orders 09/14/17 04:00 Complete Blood Count [HEME] AM 0400 09/15/17 04:00 Complete Blood Count [HEME] AM 0400 Date of Encounter: 09/13/17 Time of Encounter: 11:09 - Discharge Diagnosis (1) Ileus, postoperative Priority: Primary Status: Acute (2) Lumbar radiculitis Priority: Secondary Status: Chronic (3) Status post lumbar spinal fusion Priority: Secondary Status: Acute (4) Lumbar radiculopathy Priority: Secondary Status: Chronic (5) Lumbar stenosis Priority: Secondary Status: Chronic Qualifiers: Neurogenic claudication status: unspecified Qualified Code(s): M48.061 - Spinal stenosis, lumbar region without neurogenic claudication (6) Spondylolisthesis Priority: Secondary Status: Chronic Qualifiers: Spinal region: lumbar Qualified Code(s): M43.16 - Spondylolisthesis, lumbar region (7) Leukocytosis Priority: Secondary Status: Acute Qualifiers: Leukocytosis type: unspecified Qualified Code(s): D72.829 - Elevated white blood cell count, unspecified (8) Sepsis Priority: Secondary Status: Resolved Qualifiers: Sepsis type: sepsis due to unspecified organism Qualified Code(s): A41.9 - Sepsis, unspecified organism (9) Hyponatremia Priority: Secondary Status: Resolved (10) Hypokalemia Priority: Secondary Status: Acute (11) Atrial fibrillation with RVR Priority: Secondary Status: Resolved (12) DVT prophylaxis Priority: Secondary Status: Acute (13) Allergic drug rash Priority: Secondary Status: Acute (14) Oral thrush Priority: Secondary Status: Acute Hospital course: Mr. Cr is a 82 year old male w/PMH of GERD, diabetes, thyroid disease, and chronic low back pain presents for Hospitalist consultation d/t altered mental status, leukocytosis, and sepsis criteria post-posterior lumbar interbody fusion L3-L5 on 08/29/17. Pt. reports that he is extremely fatigued and somnolent , has pain in his left leg today, SOB, and generally has not felt well for the past two days. Pt. had fever on 09/01/17 of 101.7F with WBC was 14.5 overnight at that time. Pt. is currently contact precautions d/t positive MRSA nasal screen pre-operatively. States he is having abdominal bloating and gas w/ nausea. Hospitalist was consulted for management at that time and eventually took over as primary care. Patient was treated for sepsis due to leukocytosis, HR 101, LA elevated at 3.1 and required IV fluid. Blood cultures were obtained and he was started on broad spectrum antibiotics vancomycin and Zosyn. Patient also found to have no onset atrial fibrillation with RVR, likely from sepsis. Cardiology was consulted for management. Patient placed on Toprol XL and rate improved and so Cardiology signed off. He was not started on anticoagulation because of frequent falls so placed on aspirin alone. CTA was done to rule out PE and negative for PE. Blood cultures final result are negative. on 09/04 patient was having abdominal pain and distention with distress. Worked up showed patient developed ileus post op with pain medication. GI was consulted and patient had NG tube inserted for decompression. TPN was started as well. Patient was able to advance diet gradually and discharging in stable condition. Able to discharge if tolerating lunch and dinner. - Time Spent with Patient Total time spent providing and/or coordinating discharge services: - Discharge Medications Prescriptions: OxyCODONE Immed Rel [Roxicodone 5 MG] 5 mg PO Q6HR PRN 7 Days #28 tablet PRN Reason: Severe Pain Home Medications: Aspirin [Lo-Dose Aspirin EC] 81 mg PO DAILY 08/14/16 [History] Levothyroxine [Synthroid] 75 mcg PO 0630 08/14/16 [History] Metformin HCl [Glucophage] 1,000 mg PO BID 08/14/16 [History] Naproxen [Naprosyn] 500 mg PO BID 08/14/16 [History] Nateglinide [Starlix] 60 mg PO BID 08/14/16 [History] Omeprazole 20 mg PO DAILY 08/14/16 [History] glipiZIDE [Glipizide ER] 10 mg PO DAILY 08/14/16 [History] Acetaminophen [Tylenol] 650 mg PO Q6HR PRN tablet 09/01/17 [Rx] OxyCODONE Immed Rel [Roxicodone 5 MG] 5 mg PO Q6HR PRN 7 Days #28 tablet [Rx] Simethicone [Gas-X] 80 mg PO TID PRN tab.chew 09/01/17 [Rx] Allergies/Adverse Reactions: 3 Allergy/AdvReac Type Severity Reaction Status Date / Time No Known Allergies Allergy Verified 08/29/17 09:54 Date of admission: 08/29/17 15:35 Primary care physician: Trini Roy Consults: 08/29/17 15:35 Consult to Occupational Therapy [CONS] Routine Comment: Evaluate, develop and implement POC Reason for Consult: Postoperative rehabilitation Does patient have active BEDREST order?: No Is patient medically & hemodynamically stable?: Yes Patient assessed for mobility or mobilized this visit?: No Consult to Physical Therapy [CONS] Routine Comment: Evaluate, develop and implement POC Reason for Consult: Postoperative rehabilitation Does patient have active BEDREST order?: No Is patient medically & hemodynamically stable?: Yes Patient assessed for mobility or mobilized this visit?: No Consult to Tunnel Kiln Operator [CONS] Routine Reason for SW Consult: Postoperative rehabilitation Consult to Spine Navigator [CONS] [CONS] Routine 08/29/17 16:19 Consult to Nutrition [CONS] Routine Comment: Consulting Provider: NUTRITION Reason for Dietary Consult: MST Score Consult to Pastoral Services [CONS] Routine Comment: 09/01/17 13:36 Consult to Hospitalist [CONS] Routine Consulting Provider: Hospitalist Deepak Reason for Consult: Confusion, hypersomnelence, tachycardia Time Notified: 13:37 Call Completed: Yes 09/01/17 14:57 Consult to Cardiology [CONS] Stat Comment: Consulting Provider: Cardiology Melba Reason for Consult: afib with RVR on EKG - worsening mental status Time Notified: 14:58 Call Completed: Yes 09/06/17 16:19 Consult to Gastroenterology [CONS] Routine Consulting Provider: Gastroenterology Melba Reason for Consult: Post Op Ileus Time Notified: 16:19 Call Completed: Yes 09/06/17 16:59 consult to stock patch sawyer [Consult to Nutrition] [CONS] Routine Comment: Post Op Ileus Consulting Provider: NUTRITION Reason for Dietary Consult: Other Other:: Post Op Ileus 09/07/17 10:13 Consult to PICC team [Consult to Invasive Line Access Team] [CONS] Stat Reason for Consult: no access, maint and ATB IV orders Line Type: EPIV PICC line indications: Limited vascular access Time Notified: 10:14 Call Completed: Yes 09/07/17 17:10 PICC [Consult to Invasive Line Access Team] [CONS] Routine Reason for Consult: change EPIV to PICC for TPN Line Type: PICC 09/08/17 08:05 consult to stock patch sawyer [Consult to Nutrition] [CONS] Routine Comment: Consulting Provider: NUTRITION Reason for Dietary Consult: TPN Start and Manage 09/08/17 13:18 Consult to Invasive Line Access Team [CONS] Routine Reason for Consult: Picc Line Insertion Line Type: PICC 09/09/17 12:12 Consult to Diabetes Education [CONS] Stat Comment: Reason for Consult: Diabetic Diet Education Discharging clinician: Alpesh Mahajan - Constitutional Vitals: Temp Pulse Resp BP Pulse Ox 98.2 F 96 18 132/75 96 09/13/17 08:10 09/13/17 08:10 09/13/17 08:10 09/13/17 08:10 09/13/17 08:10 General appearance: Present: cooperative, A&O X 3, pleasant, no acute distress, obese, answers questions appropriately Exam: - Respiratory Respiratory exam: Present: CTAB. Absent: accessory muscle use, rales, rhonchi, wheezes - Cardiovascular Cardiovascular exam: Present: RRR, +S1, +S2. Absent: diastolic murmur, gallop, rubs, systolic murmur - GI/Abdominal GI/Abdominal exam: Present: distended (Minimal), hypoactive bowel sounds, soft. Absent: hepatomegaly, mass, splenomegaly, tenderness - Psychiatric Psychiatric exam: Present: normal affect, normal mood. Absent: agitated, anxious, depressed - Skin Skin exam: Present: dry, intact, warm. Absent: cyanosis, rash (resolved) - Patient Status Disposition: Home, Self-Care Condition: Undetermined Functional capacity at discharge: wheelchair bound Overall status at discharge: patient is progressing back to baseline - Discharge Instructions Follow Up With: Brenda Her PAC [Physician Locomotive Boilermaker] - Saji Parada CNP [Advanced Practice Nurse] - (Office will call patient at home with follow up appointment) Trini Roy MD [Primary Care Provider] - (Patient is going to [facility] no PCP appontment needed) - Diet and Activity Activity: as per physical therapy Diet: advance to your usual diet - VTE Reasons for not Prescribing Prophylaxis: Medical contraindication (Bialteral flank ecchymoses) Documentation of Mechanical Device: Intermittent pneumatic compression device
--- NOTE | 2017-09-13 11:52 | Physician Discharge Referral ---
ExtendedCare Referral Info Provider in Charge after Transfer: Other Institutional Level of Care: Skilled - Diagnosis (1) Ileus, postoperative Priority: Primary Status: Acute (2) Lumbar radiculitis Priority: Secondary Status: Chronic (3) Status post lumbar spinal fusion Priority: Secondary Status: Acute (4) Lumbar radiculopathy Priority: Secondary Status: Chronic (5) Lumbar stenosis Priority: Secondary Status: Chronic (6) Spondylolisthesis Priority: Secondary Status: Chronic (7) Leukocytosis Priority: Secondary Status: Acute (8) Sepsis Priority: Secondary Status: Resolved (9) Hyponatremia Priority: Secondary Status: Resolved (10) Hypokalemia Priority: Secondary Status: Acute (11) Atrial fibrillation with RVR Priority: Secondary Status: Resolved (12) DVT prophylaxis Priority: Secondary Status: Acute (13) Allergic drug rash Priority: Secondary Status: Acute (14) Oral thrush Priority: Secondary Status: Acute - Transfer Medications Prescriptions: OxyCODONE Immed Rel [Roxicodone 5 MG] 5 mg PO Q6HR PRN 7 Days #28 tablet PRN Reason: Severe Pain Home Medications: Aspirin [Lo-Dose Aspirin EC] 81 mg PO DAILY 08/14/16 [History] Levothyroxine [Synthroid] 75 mcg PO 0630 08/14/16 [History] Metformin HCl [Glucophage] 1,000 mg PO BID 08/14/16 [History] Naproxen [Naprosyn] 500 mg PO BID 08/14/16 [History] Nateglinide [Starlix] 60 mg PO BID 08/14/16 [History] Omeprazole 20 mg PO DAILY 08/14/16 [History] glipiZIDE [Glipizide ER] 10 mg PO DAILY 08/14/16 [History] Acetaminophen [Tylenol] 650 mg PO Q6HR PRN tablet 09/01/17 [Rx] OxyCODONE Immed Rel [Roxicodone 5 MG] 5 mg PO Q6HR PRN 7 Days #28 tablet [Rx] Simethicone [Gas-X] 80 mg PO TID PRN tab.chew 09/01/17 [Rx] Allergies/Adverse Reactions: 3 Allergy/AdvReac Type Severity Reaction Status Date / Time No Known Allergies Allergy Verified 08/29/17 09:54 - Respiratory Orders Smoking Cessation: Smoking cessation has been advised. For more information, call the [place] Tobacco Quit Line at 9-216-RXFR-NOW. - Mobility Orders Other (As per physical therapy) - Rehabiliation Orders Rehab Orders: Evaluation for Physical Therapy, Evaluation for Occupational Therapy - Diet Orders No Concentrated Sweets (Diabetic) CERTIFICATION: I certify that the transfer of the above named patient to an Extended Care Facility is necessary for the continuing treatment of the diagnosis listed. The above information is true and accurate reflection of patient's current condition. Confidential - Redisclosure prohibited without a patient's written consent.
[2017-09-13 11:56] VITALS: BP 139/61
== END 2017-09-13 14:37 | DRG 459 ==
LOC: SAMDAY 08:14 → 3NENU 15:35 → SUATTDRO 15:35 → 3NENU 08-30 20:20 → 2NNU 09-01 20:33
PROVIDERS: ADMIT Orthopaedic Surgery Orthopaedic Surgery of the Spine; ATTEND Family Medicine